=== PATIENT | male | born 1950 | race Caucasian/White ===

== ENCOUNTER 2017-05-16 03:23 | Outpatient (CLI) | payer MEDICARE, OTHER | END 2017-05-16 03:24 | disposition critical access hospital (66) | LOC: EMS 03:23 | PROVIDERS: ATTEND Surgery | DX: M25.511 Pain in right shoulder (principal) | CPT/HCPCS: A0425; A0427 ==

== ENCOUNTER 2017-05-16 03:32 | Emergency (ER) | payer MEDICARE, OTHER ==
--- NOTE | 2017-05-16 04:15 | XRAY Preliminary Report ---
Exam: XR Shoulder 2 View RT IMPRESSION: Proximal right humerus is dislocated anteriorly relative to the glenoid. [facility] SITE ID: [id number]
--- NOTE | 2017-05-16 04:18 | XRAY Report ---
EXAM: RIGHT SHOULDER RADIOGRAPHY EXAM DATE: 05/16/2017 04:09 AM. CLINICAL HISTORY: Right shoulder pain, question dislocation COMPARISON: None. TECHNIQUE: 3 views. FINDINGS: Bones: Normal. No fracture or bone lesion. Joints: Proximal right humerus is dislocated anteriorly relative to the glenoid. Soft Tissues: The visualized hemithorax is unremarkable. No soft tissue swelling. IMPRESSION: Proximal right humerus is dislocated anteriorly relative to the glenoid. [facility] Referring Provider Line: [phone] SITE ID: [id number]
--- NOTE | 2017-05-16 05:08 | XRAY Preliminary Report ---
Exam: XR Shoulder 2 View RT IMPRESSION: 1. Anatomic alignment of the right shoulder postreduction. 2. Chronic-appearing rotator cuff arthropathy. [facility] SITE ID: [id number]
--- NOTE | 2017-05-16 05:13 | XRAY Report ---
EXAM: RIGHT SHOULDER RADIOGRAPHY EXAM DATE: 05/16/2017 04:54 AM. CLINICAL HISTORY: Post reduction right shoulder dislocation. COMPARISON: Earlier same morning. TECHNIQUE: 2 views. FINDINGS: Bones: Normal. No fracture or bone lesion. Joints: Anatomic alignment post reduction. High riding right humerus, consistent with rotator cuff ar thropathy. Moderate glenohumeral degenerative changes. Soft tissues: The visualized hemithorax is unremarkable. No soft tissue swelling. IMPRESSION: 1. Anatomic alignment of the right shoulder post reduction. 2. Chronic-appearing rotator cuff arthropathy. [facility] Referring Provider Line: [phone] SITE ID: [id number]
--- NOTE | 2017-05-16 05:14 | ED Physician Documentation ---
PD HPI UPPER EXT INJURY - Stated complaint Stated Complaint: SHOULDER PX - Chief complaint Chief Complaint: Ext Problem - History obtained from History obtained from: Patient, EMS - History of Present Illness Location: Right, Shoulder Type of injury: Fall Where injury occurred: Home Timing - onset: Today Timing - duration: Minutes Timing - details: Abrupt onset, Still present Improved by: Rest, Immobilization Worsened by: Moving, Palpating Associated symptoms: No: Weakness, Numbness, Tingling, Swelling Contributing factors: No: Anticoagulated Similar symptoms before: Has not had sx before Recently seen: Not recently seen - Additonal information Additional information: 67 y/[place] he is staying in the house and staying on an air mattress He rolled off of the bed and somehow dislocated his right shoulder. Review of Systems Constitutional: denies: Fever Respiratory: denies: Cough GI: denies: Vomiting Musculoskeletal: reports: Joint pain. denies: Neck pain, Back pain Neurologic: denies: Generalized weakness, Focal weakness, Numbness PD PAST MEDICAL HISTORY - Past Medical History Past Medical History: Yes Cardiovascular: Hypertension - Past Surgical History Past Surgical History: No - Present Medications Home Medications: Ambulatory Orders Medication Instructions Recorded Confirmed Propranolol [Inderal] 60 mg PO DAILY 05/16/17 05/16/17 hydroCHLOROthiazide [Hydrodiuril] 1 tab PO DAILY 05/16/17 05/16/17 - Allergies Allergies/Adverse Reactions: Allergies Allergy/AdvReac Type Severity Reaction Status Date / Time No Known Drug Allergies Allergy Verified 05/16/17 03:37 - Social History Does the pt smoke?: No Smoking Status: Never smoker PD ED PE NORMAL - Vitals Vital signs reviewed: Yes (hypertensive) - General General: Alert and oriented X 3, Well developed/nourished, Other (patient has is right arm held up by the left arm and appears to be in pain AOB) - HEENT HEENT: Atraumatic, PERRL - Neck Neck: Supple, no meningeal sign, No bony TTP - Respiratory Respiratory: No respiratory distress - Derm Derm: Normal color, Warm and dry, No rash - Extremities Extremities: Other (There is a dislocation deformity of the right shoulder consistent with an anterior dislocation. ) Results - Vitals Vitals: Vital Signs - 24 hr 05/16/17 05/16/17 05/16/17 03:35 04:25 05:09 Temperature 36.6 C Heart Rate 55 L 53 L Respiratory 16 16 16 Rate Blood Pressure 169/93 H 143/80 H O2 Saturation 100 100 05/16/17 05/16/17 06:10 06:43 Temperature Heart Rate 53 L 53 L Respiratory 17 16 Rate Blood Pressure 130/72 O2 Saturation 99 98 Oxygen O2 Source Room air - Rads (name of study) right shoulder Radiology: Prelim report reviewed (Impression: Proximal right humerus is dislocated anteriorly relative to the glenoid.), EMP read indepedently, See rad report Postreduction right shoulder Radiology: Prelim report reviewed (Impression: 1. Anatomic alignment of the right shoulder post reduction. 2. Chronic appearing rotator cuff arthropathy.) , EMP read indepedently, See rad report Procedures - Reduction Body part reduced: Right, Shoulder Fracture or dislocation: Dislocation Anesthesia: Other (ETOH) Shoulder reduction technique: Traction - counter tract Reduction aftercare: NV intact, Xray confirms reduction, Alignment improved, Patient tolerated well PD MEDICAL DECISION MAKING - ED course Complexity details: reviewed results, re-evaluated patient, considered differential, d/w patient ED course: 67-year-old male who rolled off of the bed and dislocated his right shoulder comes to the emergency department with his shoulder dislocated. He is able to allow me to use traction on the arm which does help with his general level of pain I am only able to sustain traction and the shoulder is reduced. Departure - Departure Disposition: 01 Home, Self Care Clinical Impression: Shoulder dislocation Qualifiers: Encounter type: initial encounter Laterality: right Qualified Code(s): S43.004A - Unspecified dislocation of right shoulder joint, initial encounter Condition: Stable Instructions: ED Dislocation Shoulder Redu Follow-Up: Your, doctor [Other] Discharge Date/Time: 05/16/17 07:00
[2017-05-16 06:43] VITALS: BP 130/72
== END 2017-05-16 07:00 | disposition home or self-care (01) ==
LOC: EDUNIT# → ED 03:32
DX: S43.004A Unspecified dislocation of right shoulder joint, initial encounter (principal); W06.XXXA Fall from bed, initial encounter; Y93.84 Activity, sleeping; Y92.009 Unspecified place in unspecified non-institutional (private) residence as the place of occurrence of the external cause; I10 Essential (primary) hypertension
CPT/HCPCS: 23650; 99283; 99284

== ENCOUNTER 2021-05-22 19:49 | Outpatient (CLI) | payer MEDICARE, OTHER | END 2021-05-22 19:50 | disposition critical access hospital (66) | LOC: EMS 19:49 | DX: R10.9 Unspecified abdominal pain (principal) | CPT/HCPCS: A0425; A0427 ==

== ENCOUNTER 2021-05-22 19:56 | Inpatient (IN) | payer MEDICARE, OTHER ==
[~2021-05-22 19:56] MED LIST: LACTATED RINGERS 400 ML IV ONE
[2021-05-22 20:22] LABS: BASOPHILS # (AUTO) 0.1 10^3/uL (0.0-0.1); BASOPHILS % (AUTO) 0.5 %; EOSINOPHILS % (AUTO) 0.1 %; HCT - HEMATOCRIT 27.8 % (42.0-52.0); HGB - HEMOGLOBIN 8.5 g/dL (14.0-18.0); LYMPHOCYTES # (AUTO) 0.6 10^3/uL (1.5-3.5); LYMPHOCYTES % (AUTO) 3.8 %; MEAN CORPUSCULAR HEMOGLOBIN 27.8 pg (27.0-31.0); MEAN CORPUSCULAR HGB CONC 30.6 g/dL (32.0-36.0); MEAN CORPUSCULAR VOLUME 90.8 fL (80.0-94.0); MEAN PLATELET VOLUME 8.2 fL (7.4-11.4); MONOCYTES # (AUTO) 0.7 10^3/uL (0.0-1.0); MONOCYTES % (AUTO) 4.2 %; NEUTROPHILS # (AUTO) 14.4 10^3/uL (1.5-6.6); PLT - PLATELET COUNT 392 10^3/uL (130-450); RED BLOOD COUNT 3.06 10^6/uL (4.70-6.10); RED CELL DISTRIBUTION WIDTH 15.9 % (12.0-15.0); WHITE BLOOD COUNT 15.9 x10^3/uL (4.8-10.8)
[2021-05-22] MEDS ORDERED: ONDANSETRON 4 MG/2 ML VIAL IVP STA (20:37)
[2021-05-22] MEDS ORDERED: MORPHINE 2 MG/ML CARPUJECT IVP STA (20:37)
[2021-05-22] MEDS ORDERED: PIPERACILLIN/TAZOBACTAM 3.375 GM in SODIUM CHLORIDE 0.9% MINIBAG 100 ML IV STA (20:39)
--- NOTE | 2021-05-22 20:40 | ED Physician Documentation ---
History of Present Illness - Stated complaint Stated Complaint: ABD PX - Chief complaint Chief Complaint: Abd Pain - History obtained from History obtained from: Patient - Additonal information Additional information: 71-year-old male with a past medical history of a abdominal mass of unspecified type for which he underwent a jejunalplasty at the [facility] several months ago. He presents today with a 1 day history of abdominal pain starting in the left lower quadrant and radiating throughout the abdomen. The pain started after breakfast this morning. It is worsened throughout the day to the point where he cannot take a deep breath due to the pain. He has been sipping on grapefruit juice since this morning but has not eaten. He is passing gas and he had a normal bowel movement yesterday and none today. He is not vomiting. Denies any urinary symptoms. The patient states that he has a history of reflux symptoms but he felt as though drinking apple cider vinegar every day has actually been helpful to him and he has been drinking 2 or 3 tablespoons daily. He has a history of anemia which is followed by the [facility], baseline hgb 8 per pt report. Review of Systems Constitutional: reports: Weight Loss (prior to recent surgery but stable since then), Reviewed and negative Eyes: reports: Reviewed and negative Ears: reports: Reviewed and negative Nose: reports: Reviewed and negative Throat: reports: Reviewed and negative Cardiac: reports: Reviewed and negative Respiratory: reports: Dyspnea. denies: Cough, Hemoptysis, Wheezing GI: reports: Abdominal Pain, Abdominal Swelling. denies: Nausea, Vomiting, Constipation, Diarrhea, Hematemesis, Bloody / black stool : reports: Reviewed and negative Skin: reports: Reviewed and negative Musculoskeletal: reports: Reviewed and negative Neurologic: reports: Reviewed and negative Psychiatric: reports: Reviewed and negative Endocrine: reports: Reviewed and negative Immunocompromised: reports: Reviewed and negative PD PAST MEDICAL HISTORY - Past Medical History Past Medical History: Yes Cardiovascular: Hypertension Respiratory: None Neuro: Migraines, Tremors Endocrine/Autoimmune: None GI: None : None Psych: None Musculoskeletal: None Derm: None - Past Surgical History Past Surgical History: No General: Gastric surgery Ortho: Hip replacement - Present Medications Home Medications: Ambulatory Orders Medication Instructions Recorded Confirmed No Known Home Medications 05/22/21 05/22/21 - Allergies Allergies/Adverse Reactions: Allergies Allergy/AdvReac Type Severity Reaction Status Date / Time No Known Drug Allergies Allergy Verified 05/22/21 20:09 - Living Situation Living Situation: reports: With spouse/s.o. - Social History Does the pt smoke?: No Smoking Status: Never smoker PD ED PE NORMAL - Vitals Vital signs reviewed: Yes - General General: Alert and oriented X 3, Well developed/nourished, Other (Mild distress, shallow breathing.) - HEENT HEENT: Atraumatic, Moist mucous membranes, Pharynx benign - Neck Neck: Supple, no meningeal sign, No JVD - Cardiac Cardiac: RRR, No murmur, No gallop, No rub, Strong equal pulses - Respiratory Respiratory: Clear bilaterally, Other (Is breathing shallow secondary to abdominal pain) - Abdomen Abdomen: Normal bowel sounds, Other (Diffuse tenderness primarily in the lower abdomen to light touch. Mild distention. Active bowel tones.) - Derm Derm: Normal color, Warm and dry, No rash - Extremities Extremities: No deformity, No tenderness to palpate, Normal ROM s pain, No edema, No calf tenderness / cord - Neuro Neuro: Alert and oriented X 3, No motor deficit, No sensory deficit, Normal speech Eye Opening: Spontaneous Motor: Obeys Commands Verbal: Oriented GCS Score: 15 - Psych Psych: Normal mood, Normal affect Results - Vitals Vitals: Vital Signs - 24 hr 05/22/21 05/22/21 05/22/21 20:00 21:28 22:00 Temperature 36.9 C Heart Rate 99 83 81 Respiratory 25 H 30 H 30 H Rate Blood Pressure 155/85 H 147/76 H 140/76 H O2 Saturation 98 98 97 05/22/21 22:30 Temperature Heart Rate 81 Respiratory 25 H Rate Blood Pressure 136/77 H O2 Saturation 97 Oxygen O2 Source Room air - EKG (time done) No standard instances Rate: Rate (enter#) (81) Rhythm: NSR [place]: Normal Intervals: Normal [place] QRS: Normal Ischemia: Normal ST segments Computer interpretation: Agree with computer - Labs Labs: Laboratory Tests 05/22/21 05/22/21 05/22/21 20:18 20:18 20:18 WBC 15.9 H RBC 3.06 L Hgb 8.5 L Hct 27.8 L MCV 90.8 MCH 27.8 MCHC 30.6 L RDW 15.9 H Plt Count 392 MPV 8.2 Neut # (Auto) 14.4 H Lymph # (Auto) 0.6 L [place] # (Auto) 0.7 Eos # (Auto) 0.0 Baso # (Auto) 0.1 Absolute Nucleated RBC 0.00 Nucleated RBC % 0.0 Sodium 136 Potassium 4.3 Chloride 102 Carbon Dioxide 23 Anion Gap 11.0 BUN 14 Creatinine 0.9 Estimated GFR (MDRD) 83 L Glucose 241 H Lactic Acid Calcium 8.2 L Total Bilirubin 0.9 AST 10 ALT 16 Alkaline Phosphatase 73 Troponin I High Sens 4.4 Total Protein 6.1 L Albumin 2.3 L Globulin 3.8 Albumin/Globulin Ratio 0.6 L Lipase 18 L 05/22/21 20:57 WBC RBC Hgb Hct MCV MCH MCHC RDW Plt Count MPV Neut # (Auto) Lymph # (Auto) [place] # (Auto) Eos # (Auto) Baso # (Auto) Absolute Nucleated RBC Nucleated RBC % Sodium Potassium Chloride Carbon Dioxide Anion Gap BUN Creatinine Estimated GFR (MDRD) Glucose Lactic Acid 1.9 Calcium Total Bilirubin AST ALT Alkaline Phosphatase Troponin I High Sens Total Protein Albumin Globulin Albumin/Globulin Ratio Lipase PD MEDICAL DECISION MAKING - ED course Complexity details: reviewed results, re-evaluated patient, d/w patient, d/w forestry consultant ED course: This is a 71-year-old male who presented with abdominal pain since this morning. His physical exam was concerning for a diffusely tender and mildly distended abdomen therefore an abdominal work-up and CT abdomen pelvis was obtained as well as a sepsis work-up. His labs are significant for an elevated white blood cell count of 15.6, stable anemia with a hemoglobin of 8.5, lactate less than 2. His CT abdomen pelvis shows a perforated viscus likely secondary to gastric ulcer. He also has a large retroperitoneal mesenteric mass. I discussed these findings with the on-call surgeon Dr. Franklin who very kindly is coming in to see the patient for likely operative repair tonight. We will obtain a type and screen now as well as a Covid test for admit. I reviewed the findings and the plan of care with the patient is agreeable to proceed. Departure - Departure Disposition: ED Transfer to [facility] Clinical Impression: Perforated abdominal viscus Condition: Fair
[2021-05-22 20:42] LABS: ALBUMIN 2.3 g/dL (3.2-5.5); ALBUMIN/GLOBULIN RATIO 0.6 (1.0-2.2); BILIRUBIN,TOTAL 0.9 mg/dL (0.2-1.0); CALCIUM 8.2 mg/dL (8.5-10.3); CREATININE 0.9 mg/dL (0.6-1.2); POTASSIUM 4.3 mmol/L (3.5-5.0); TOTAL PROTEIN 6.1 g/dL (6.7-8.2)
[2021-05-22] MEDS ORDERED: IOPAMIDOL-300 100 ML VIAL ONE (20:49)
[2021-05-22] MEDS ORDERED: IOPAMIDOL-300 100 ML VIAL IVP ONE (21:29)
[2021-05-22] MEDS ORDERED: HYDROmorphone 1 MG/ML CARPUJECT IVP STA (21:40)
--- NOTE | 2021-05-22 21:56 | CT Report ---
PROCEDURE: Abdomen/Pelvis W INDICATIONS: sepsis, acute abd, prior jejunoplasty CONTRAST: IV CONTRAST: Isovue 300 ml: 100 PO CONTRAST: *NO PO CONTRAST TECHNIQUE: After the administration of intravenous contrast, 5 mm thick sections acquired from the diaphragms to the symphysis. 5 mm thick coronal and sagittal reformats were acquired. For radiation dose reducti on, the following was used: automated exposure control, adjustment of mA and/or kV according to ricardo ent size. COMPARISON: None. FINDINGS: Image quality: Excellent. ABDOMEN: Lung bases: Lung bases are clear. Heart size is normal. Small pericardial effusion. Solid organs: Liver and spleen are normal in size and enhancement. Gallbladder is unremarkable. Bi liary system is non dilated. Pancreas enhances normally. No adrenal nodules. Kidneys demonstrate n ormal size and enhancement, without hydronephrosis. Peritoneum and bowel: There is a suggestion of a possible perforated gastric ulcer. This is in a simin on of gastric mia in the antral or pyloric region. The duodenum is dilated. The third and fourth portion of duodenum and the proximal jejunum are compressed by the retroperitoneal and mesenteric mas s. Probable ileus pattern. Extensive sigmoid diverticulosis. Prominent free intraperitoneal air. Mild free pelvic fluid. Mild perihepatic fluid. Nodes and vessels: Very large retroperitoneal/mesenteric lymph node mass, measuring approximately 10. 1 x 15.9 x 12.5 cm. The mass surrounds the aorta and compresses the inferior vena cava. The main port al vein and right and left portal veins are enlarged suggesting possible portal hypertension. Miscellaneous: No ventral hernias. PELVIS: Genitourinary: Bladder wall thickness is normal. Miscellaneous: No inguinal hernias or adenopathy. Bones: No suspicious bony lesions. No vertebral body compression fractures. Total left hip arthrop lasty. Extensive lumbar degenerative change with multilevel canal stenosis. IMPRESSION: 1. Free intraperitoneal air is consistent with perforated viscus. 2. Findings suggest probable perforated gastric ulcer in the antral region or pyloric region in the g eneral vicinity of surgical mia. 3. Large retroperitoneal/mesenteric lymph node mass. 4. Compression of the distal duodenum and proximal jejunum by lymph node mass. 5. Mild ascites. 6. Extensive sigmoid diverticulosis. 7. Extensive lumbar degenerative change with multilevel canal stenosis. Above discussed with GREG LEO at the time of dictation on 05.22.21 at 21:53 hours. Reviewed by: Isreal Valentin MD on 05/22/2021 9:55 PM PDT Approved by: Isreal Valentin MD on 05/22/2021 9:55 PM PDT Station ID: [id number]
[2021-05-22] MEDS ORDERED: HYDROmorphone 1 MG/ML CARPUJECT IVP ONE (22:24)
[2021-05-22] MEDS ORDERED: FLUCONAZOLE 200 MG/100 ML 100 ML IV ONE (23:05)
[2021-05-22] MEDS ORDERED: fentaNYL 100 MCG/2 ML VIAL ONE (23:09)
[2021-05-22] MEDS ORDERED: LIDOCAINE-MPF 2% 5 ML VIAL ONE (23:10)
[2021-05-22] MEDS ORDERED: PROPOFOL 200 MG/20 ML VIAL IVP ONE (23:10)
[2021-05-22] MEDS ORDERED: ONDANSETRON 4 MG/2 ML VIAL ONE (23:10)
[2021-05-22] MEDS ORDERED: ROCURONIUM 50 MG/5 ML VIAL ONE (23:10)
[2021-05-22] MEDS ORDERED: DEXAMETHASONE 4 MG/ML VIAL ONE (23:10)
--- NOTE | 2021-05-22 23:11 | HISTORY & PHYSICAL EXAMINATION ---
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 He was living in [place] several months ago and that is where he was treated. He says the mass was biopsied 3 times and he was told that it was inconclusive the first time and the last 2 times it was benign.Because it was obstructing his duodenum, he underwent a jejunum plasty presumably to bypass that portion. He tells me that this portion of his bowel is "clamped off". Since this problem developed and since he was treated in [place], he has lost 72 pounds unintentionally.He says they told him not to worry about it being cancer because he had no cancer markers. He was instructed to stop all of his habits that were bad, primarily drinking alcohol.He says he drinks 0 alcohol since that time and even bought a nonalcohol mouthwash.He reports that his pain began this morning in the left lower quadrant. Over the day it has migrated all over his abdomen until now he is profoundly uncomfortable in all ports of his abdomen.He denies any nausea or vomiting.He reports that he has a history of pretty severe gastroesophageal reflux disease and he has been drinking 2 or 3 tables teaspoons of apple cider vinegar each day.Other than this he takes no medicines on a regular basis. PMH/PSH - Past Medical History Cardiovascular: positive: Hypertension Respiratory: positive: None Neuro: positive: Migraines, Tremors Endocrine/Autoimmune: positive: None GI: positive: None : positive: None Psych: positive: None Musculoskeletal: positive: None Derm: positive: None MRSA Hx?: No - Past Surgical History General: positive: Gastric surgery Ortho: positive: Hip replacement Social & Family Hx - Social History Does the pt smoke?: No Smoking Status: Never smoker Does the pt drink ETOH?: No Does the pt have substance abuse?: No Meds/Allgy - Home Medications Home Medications: Ambulatory Orders Medication Instructions Recorded Confirmed No Known Home Medications 05/22/21 05/22/21 - Allergies Allergies/Adverse Reactions: Allergies Allergy/AdvReac Type Severity Reaction Status Date / Time No Known Drug Allergies Allergy Verified 05/22/21 20:09 Review of Systems - Constitutional Constitutional: reports: Fatigue - Cardiovascular Cariovascular: reports: Lightheadedness. denies: Irregular heart rate, Palpitations, Chest pain - Respiratory Respiratory: denies: Cough, Sputum production, Snoring - Gastrointestinal Gastrointestinal: reports: Abdominal pain - Hematologic/Lymphatic Hematologic/Lymphatic: reports: Anemia Exam - Vital Signs Reviewed Vital Signs: Yes Vital Signs: Vital Signs x48h Temp Pulse Resp BP Pulse Ox 05/22/21 23:00 81 23 131/73 H 96 05/22/21 22:30 81 25 H 136/77 H 97 05/22/21 22:00 81 30 H 140/76 H 97 05/22/21 21:28 83 30 H 147/76 H 98 05/22/21 20:00 36.9 C 99 25 H 155/85 H 98 - Physical Exam General Appearance: positive: Moderate distress Eyes Bilateral: positive: Normal inspection, EOMI ENT: positive: ENT inspection nml, Pharynx nml, No signs of dehydration Neck: positive: Nml inspection, Thyroid nml, No JVD Respiratory: positive: Chest non-tender, No respiratory distress, Other (Breath sounds decreased due to abdominal splinting) Cardiovascular: positive: Regular rate & rhythm Skin: positive: Color nml Results - Lab Results Fish Bones: 05/22/21 20:18 05/22/21 20:18 Other Lab Results: Lab Results x24hrs 05/22/21 05/22/21 05/22/21 Range/Units 20:57 20:18 20:18 WBC (4.8-10.8) x10^3/uL RBC (4.70-6.10) 10^6/uL Hgb (14.0-18.0) g/dL Hct (42.0-52.0) % MCV (80.0-94.0) fL MCH (27.0-31.0) pg MCHC (32.0-36.0) g/dL RDW (12.0-15.0) % Plt Count (130-450) 10^3/uL MPV (7.4-11.4) fL Neut # (Auto) (1.5-6.6) 10^3/uL Lymph # (Auto) (1.5-3.5) 10^3/uL Meigs # (Auto) (0.0-1.0) 10^3/uL Eos # (Auto) (0.0-0.7) 10^3/uL Baso # (Auto) (0.0-0.1) 10^3/uL Absolute Nucleated RBC x10^3/uL Nucleated RBC % /100WBC Sodium (135-145) mmol/L Potassium (3.5-5.0) mmol/L Chloride (101-111) mmol/L Carbon Dioxide (21-32) mmol/L Anion Gap (6-13) BUN (6-20) mg/dL Creatinine (0.6-1.2) mg/dL Estimated GFR (MDRD) (>89) Glucose (70-100) mg/dL Lactic Acid 1.9 (0.5-2.2) mmol/L Calcium (8.5-10.3) mg/dL Total Bilirubin (0.2-1.0) mg/dL AST (10-42) IU/L ALT (10-60) IU/L Alkaline Phosphatase (42-121) IU/L Troponin I High Sens 4.4 (2.3-19.7) ng/L Total Protein (6.7-8.2) g/dL Albumin (3.2-5.5) g/dL Globulin (2.1-4.2) g/dL Albumin/Globulin Ratio (1.0-2.2) Lipase (22-51) U/L Blood Type Recheck O POSITIVE 05/22/21 05/22/21 Range/Units 20:18 20:18 WBC 15.9 H (4.8-10.8) x10^3/uL RBC 3.06 L (4.70-6.10) 10^6/uL Hgb 8.5 L (14.0-18.0) g/dL Hct 27.8 L (42.0-52.0) % MCV 90.8 (80.0-94.0) fL MCH 27.8 (27.0-31.0) pg MCHC 30.6 L (32.0-36.0) g/dL RDW 15.9 H (12.0-15.0) % Plt Count 392 (130-450) 10^3/uL MPV 8.2 (7.4-11.4) fL Neut # (Auto) 14.4 H (1.5-6.6) 10^3/uL Lymph # (Auto) 0.6 L (1.5-3.5) 10^3/uL Meigs # (Auto) 0.7 (0.0-1.0) 10^3/uL Eos # (Auto) 0.0 (0.0-0.7) 10^3/uL Baso # (Auto) 0.1 (0.0-0.1) 10^3/uL Absolute Nucleated RBC 0.00 x10^3/uL Nucleated RBC % 0.0 /100WBC Sodium 136 (135-145) mmol/L Potassium 4.3 (3.5-5.0) mmol/L Chloride 102 (101-111) mmol/L Carbon Dioxide 23 (21-32) mmol/L Anion Gap 11.0 (6-13) BUN 14 (6-20) mg/dL Creatinine 0.9 (0.6-1.2) mg/dL Estimated GFR (MDRD) 83 L (>89) Glucose 241 H (70-100) mg/dL Lactic Acid (0.5-2.2) mmol/L Calcium 8.2 L (8.5-10.3) mg/dL Total Bilirubin 0.9 (0.2-1.0) mg/dL AST 10 (10-42) IU/L ALT 16 (10-60) IU/L Alkaline Phosphatase 73 (42-121) IU/L Troponin I High Sens (2.3-19.7) ng/L Total Protein 6.1 L (6.7-8.2) g/dL Albumin 2.3 L (3.2-5.5) g/dL Globulin 3.8 (2.1-4.2) g/dL Albumin/Globulin Ratio 0.6 L (1.0-2.2) Lipase 18 L (22-51) U/L Blood Type Recheck - Diagnostic Imaging Results Diagnostic Imaging Results Comments: PT NAME: PATSY NOVA JR MR#: [id number] REG ER/ED AGE: 71 CI DT/TM: 05/22/21 PCP: SONIA LEIVA MD : 1950 ATT: SEX: M ORD: Saba marshall [facility] EXAM: CT/ABPEW ([id number]) PROCEDURE: Abdomen/Pelvis W INDICATIONS: sepsis, acute abd, prior jejunoplasty CONTRAST: IV CONTRAST: Isovue 300 ml: 100 PO CONTRAST: *NO PO CONTRAST TECHNIQUE: After the administration of intravenous contrast, 5 mm thick sections acquired from the diaphragms to the symphysis. 5 mm thick coronal and sagittal reformats were acquired. For radiation dose reduction, the following was used: automated exposure control, adjustment of mA and/or kV according to patient size. COMPARISON: None. FINDINGS: Image quality: Excellent. ABDOMEN: Lung bases: Lung bases are clear. Heart size is normal. Small pericardial effusion. Solid organs: Liver and spleen are normal in size and enhancement. Gallbladder is unremarkable. Biliary system is non dilated. Pancreas enhances normally. No adrenal nodules. Kidneys demonstrate normal size and enhancement, without hydronephrosis. Peritoneum and bowel: There is a suggestion of a possible perforated gastric ulcer. This is in a region of gastric mia in the antral or pyloric region. The duodenum is dilated. The third and fourth portion of duodenum and the proximal jejunum are compressed by the retroperitoneal and mesenteric mass. Probable ileus pattern. Extensive sigmoid diverticulosis. Prominent free intraperitoneal air. Mild free pelvic fluid. Mild perihepatic fluid. Nodes and vessels: Very large retroperitoneal/mesenteric lymph node mass, measuring approximately 10.1 x 15.9 x 12.5 cm. The mass surrounds the aorta and compresses the inferior vena cava. The main portal vein and right and left portal veins are enlarged suggesting possible portal hypertension. Miscellaneous: No ventral hernias. PELVIS: Genitourinary: Bladder wall thickness is normal. Miscellaneous: No inguinal hernias or adenopathy. Bones: No suspicious bony lesions. No vertebral body compression fractures. Total left hip arthroplasty. Extensive lumbar degenerative change with multilevel canal stenosis. IMPRESSION: 1. Free intraperitoneal air is consistent with perforated viscus. 2. Findings suggest probable perforated gastric ulcer in the antral region or pyloric region in the general vicinity of surgical mia. 3. Large retroperitoneal/mesenteric lymph node mass. 4. Compression of the distal duodenum and proximal jejunum by lymph node mass. 5. Mild ascites. 6. Extensive sigmoid diverticulosis. 7. Extensive lumbar degenerative change with multilevel canal stenosis. Above discussed with SABA LEO at the time of dictation on 05.22.21 at 21:53 hours. Reviewed by: Isreal Valentin MD on 05/22/2021 9:55 PM PDT Approved by: Isreal Valentin MD on 05/22/2021 9:55 PM PDT Station ID: [id number] Analyst: BOWEN Reading Radiologist: Isreal Valentin MD Releasing Radiologist: Isreal Valentin MD Released Date Time: 05/22/212154 Report 54 cc: MATHEW Mills; SONIA LEIVA MD Impression/Plan - Problem List Problem List: Perforated viscus in the setting of a pleasant gentleman with a large retroperitoneal peritoneal mass and an otherwise negative history. I have recommended exploratory laparotomy with indicated procedures which will likely include ulcer repair and Luca patch. If we are able and it appears safe, we may also try to get a biopsy of the retroperitoneal mass.He is consented for exploratory laparotomy with indicated procedures. He is expressed an understanding of the risks of the operation and a desire to have the procedure.
[2021-05-22 23:35] LABS: B. PARAPERTUSSIS- RESP PCR PAN NOT DETECTED; B. PERTUSSIS- RESP PCR PANEL NOT DETECTED; C. PNEUMONIAE- RESP PCR PANEL NOT DETECTED; CORONAVIRUS 229E-RESP PCR NOT DETECTED; CORONAVIRUS HKU1-RESP PCR NOT DETECTED; CORONAVIRUS NL63-RESP PCR NOT DETECTED; CORONAVIRUS OC43-RESP PCR NOT DETECTED; HUMAN METAPNEUMOVIRUS NOT DETECTED; INFLUENZA A- RESP PCR PANEL NOT DETECTED; INFLUENZA B - RESP PCR PANEL NOT DETECTED; M. PNEUMONIAE- RESP PCR PANEL NOT DETECTED; PARAINFLUENZA VIRUS 1 NOT DETECTED; PARAINFLUENZA VIRUS 2 NOT DETECTED; PARAINFLUENZA VIRUS 3 NOT DETECTED; PARAINFLUENZA VIRUS 4 NOT DETECTED; RHINOVIRUS/ENTEROVIRUS NOT DETECTED; RSV- RESP PCR PANEL NOT DETECTED; SARS-CoV-2 -RESP PCR PANEL NOT DETECTED
--- NOTE | 2021-05-22 23:49 | ANESTHESIA ---
Pre-Anesthesia VS, & Labs - Diagnosis abdominal pain, perforated viscous - Procedure Exploratory laparotomy Vital Signs: Temp Pulse Resp BP Pulse Ox 36.9 C 81 23 131/73 H 96 05/22/21 20:00 05/22/21 23:00 05/22/21 23:00 05/22/21 23:00 05/22/21 23:00 Height: 5 ft 7 in Weight (kg): 81.102 kg Body Mass Index: 28.0 BMI Classification: Overweight - NPO >8 hours - Lab Results Current Lab Results: Laboratory Tests 05/22/21 22:32: Blood Type O POSITIVE, Antibody Screen NEGATIVE 05/22/21 20:57: Lactic Acid 1.9 05/22/21 20:18: Blood Type Recheck O POSITIVE 05/22/21 20:18: Troponin I High Sens 4.4 05/22/21 20:18: Sodium 136, Potassium 4.3, Chloride 102, Carbon Dioxide 23, Anion Gap 11.0, BUN 14, Creatinine 0.9, Estimated GFR (MDRD) 83 L, Glucose 241 H , Calcium 8.2 L, Total Bilirubin 0.9, AST 10, ALT 16, Alkaline Phosphatase 73, Total Protein 6.1 L, Albumin 2.3 L, Globulin 3.8, Albumin/Globulin Ratio 0.6 L, Lipase 18 L 05/22/21 20:18: WBC 15.9 H, RBC 3.06 L, Hgb 8.5 L, Hct 27.8 L, MCV 90.8, MCH 27.8, MCHC 30.6 L, RDW 15.9 H, Plt Count 392, MPV 8.2, Neut # (Auto) 14.4 H, Lymph # (Auto) 0.6 L, Story # (Auto) 0.7, Eos # (Auto) 0.0, Baso # (Auto) 0.1, Absolute Nucleated RBC 0.00, Nucleated RBC % 0.0 Lab results reviewed: Yes Fish Bones: 05/22/21 20:18 05/22/21 20:18 Home Medications and Allergies Home Medications: Ambulatory Orders No Known Home Medications 05/22/21 Active Medications Fluconazole (Diflucan 200 Mg/100 Ml) 100 mls @ 100 mls/hr IV ONCE ONE Stop: 05/23/21 00:04 Last Admin: 05/22/21 23:18 Dose: 100 mls/hr Documented by: No Known Home Medications 05/22/21 Allergies/Adverse Reactions: Allergies Allergy/AdvReac Type Severity Reaction Status Date / Time No Known Drug Allergies Allergy Verified 05/22/21 20:09 Anes History & Medical History - Anesthetic History Anesthesia Complications: reports: No previous complications Family history of Anesthesia Complications: Denies Family history of Malignant Hyperthermia: Denies - Medical History Cardiovascular: reports: Hypertension Pulmonary: reports: None Gastrointestinal: reports: None, Ulcers Urinary: reports: None Neuro: reports: Migraines, Tremors Musculoskeletal: reports: None Endocrine/Autoimmune: reports: None Blood Disorders: reports: None Skin: reports: None Smoking Status: Never smoker - Surgical History General: reports: Gastric surgery Orthopedic: reports: Hip replacement Results - EKG Results EKG Comparison: Normal EKG Exam General: Alert, Oriented x3, Cooperative, No acute distress Dental: WNL Mouth Openin Fingerbreadth Neck Mobility: Normal Mallampati classification: II Plan Anesthesia Type: General, Transverse Abdominis Plane (TAP) Block Regional Block: Per Surgeon's request for Post Op pain control Consent for Procedure(s) Verified and Reviewed: Yes Code Status: Attempt Resuscitation ASA classification: 3-Severe systemic disease Is this case an emergency?: Yes
[2021-05-22] MEDS ORDERED: LIDOCAINE 1% 50 ML MDV ONE (23:51)
[2021-05-22] MEDS ORDERED: BUPIVACAINE 0.25% PF 30 ML VIAL ONE (23:52)
[2021-05-22] MEDS ORDERED: LIDOCAINE 2%-EPI 1:100000 20 ML MDV ONE (23:52)
[2021-05-23] MEDS ORDERED: BUPIVACAINE 0.25% PF 30 ML VIAL SUBQ ONE (00:04)
[2021-05-23] MEDS ORDERED: LIDOCAINE 2%-EPI 1:100000 20 ML MDV SUBQ ONE (00:04)
[2021-05-23] MEDS ORDERED: BUPIVACAINE 0.25% PF 10 ML VIAL ONE (00:26)
[2021-05-23] MEDS ORDERED: EPINEPHrine 1 MG/ML AMP ONE (00:28)
[2021-05-23] MEDS ORDERED: SUGAMMADEX 200 MG/2 ML VIAL IVP ONE (00:40)
[2021-05-23] MEDS ORDERED: PHENOL THROAT SPRAY 177 ML MM PRN (00:41)
[2021-05-23] MEDS ORDERED: HYDROmorphone 0.5 MG/0.5 ML SYRINGE IVP PRN ×2 (00:49→01:29)
[2021-05-23] MEDS ORDERED: SODIUM CHLORIDE 0.9% 1,000 ML IV SCH (01:00)
--- NOTE | 2021-05-23 01:21 | ANESTHESIA POST OP EVALUATION ---
Anesthesia Post Eval - Post Anesthesia Eval Vitals: Last Vital Signs Temp 36.7 C 05/23/21 01:02 Pulse 78 05/23/21 01:02 Resp 15 05/23/21 01:02 BP 124/58 L 05/23/21 01:02 Pulse Ox 99 05/23/21 01:02 CV Function Including HR & BP: Stable Pain Control: Satisfactory Nausea & Vomiting: Negative Mental Status: Baseline Respiratory Status: Airway Patent Hydration Status: Satisfactory Anesthesia Complications: None
[2021-05-23] MEDS ORDERED: METOCLOPRAMIDE 10 MG/2 ML VIAL IVP PRN (01:29)
[2021-05-23] MEDS ORDERED: fentaNYL 100 MCG/2 ML VIAL IVP PRN (01:29)
[2021-05-23] MEDS ORDERED: ONDANSETRON 4 MG/2 ML VIAL IVP PRN (01:29)
[2021-05-23] MEDS ORDERED: ePHEDrine 50 MG/ML VIAL IVP PRN (01:29)
[2021-05-23] MEDS ORDERED: MORPHINE 2 MG/ML CARPUJECT IVP PRN (01:29)
[2021-05-23] MEDS ORDERED: NALOXONE 0.4 MG/ML VIAL IVP PRN (01:29)
[2021-05-23] MEDS ORDERED: ATROPINE ABBOJECT 1 MG/10 ML SYRINGE IVP PRN (01:29)
--- NOTE | 2021-05-23 01:35 | XRAY Report ---
PROCEDURE: Abdomen 1 View X-Ray INDICATIONS: tube placement TECHNIQUE: 1 view of the abdomen were acquired. COMPARISON: None FINDINGS: Surgical changes and devices: Dobbhoff feeding tube is seen with the tip probably in the second porti on of the duodenum. NG tube tube also noted, with the tip seen in the distal stomach or proximal duod enum. Surgical drains are present. Bowel: No pneumoperitoneum. The bowel gas pattern is normal. Soft tissues: No masses; visualized solid organ contours appear normal in size. No suspicious abdom inal calcifications. Bones: No suspicious bony abnormalities. IMPRESSION: Enteric tube and Dobbhoff feeding tube as detailed above. Reviewed by: Eric Sargent MD on 05/23/2021 1:34 AM PDT Approved by: Eric Sargent MD on 05/23/2021 1:34 AM PDT Station ID: [id number]
[2021-05-23] MEDS ORDERED: LACTATED RINGERS 1,000 ML IV SCH (02:00)
[2021-05-23] MEDS ORDERED: SODIUM CHLORIDE 0.9% 1,000 ML IV ONE (02:04)
[2021-05-23] MEDS: SODIUM CHLORIDE FLUSH 0.9% 10 ML SYRINGE IVP SCH ×3 (02:31→17:00)
[2021-05-23] MEDS: PIPERACILLIN/TAZOBACTAM 3.375 GM in SODIUM CHLORIDE 0.9% MINIBAG 100 ML IV SCH ×3 (03:01→18:05)
[2021-05-23] MEDS ORDERED: ACETAMINOPHEN 1,000 MG/100 ML 100 ML IV SCH (06:00)
[2021-05-23 06:02] LABS: BASOPHILS % (AUTO) 0.5 %; EOSINOPHILS % (AUTO) 0.5 %; HCT - HEMATOCRIT 25.9 % (42.0-52.0); HGB - HEMOGLOBIN 7.6 g/dL (14.0-18.0); LYMPHOCYTES % (AUTO) 1.5 %; MEAN CORPUSCULAR HEMOGLOBIN 27.3 pg (27.0-31.0); MEAN CORPUSCULAR HGB CONC 29.3 g/dL (32.0-36.0); MEAN CORPUSCULAR VOLUME 93.2 fL (80.0-94.0); MEAN PLATELET VOLUME 8.8 fL (7.4-11.4); NEUTROPHILS % (AUTO) 93.8 %; PLT - PLATELET COUNT 396 10^3/uL (130-450); RED BLOOD COUNT 2.78 10^6/uL (4.70-6.10); RED CELL DISTRIBUTION WIDTH 16.1 % (12.0-15.0); WHITE BLOOD COUNT 19.9 x10^3/uL (4.8-10.8)
[2021-05-23 06:07] LABS: ABNORMAL LYMPHS % (MANUAL) 0 %; BAND NEUTROPHILS % (MANUAL) 0 %
[2021-05-23 06:15] LABS: ALBUMIN 2.1 g/dL (3.2-5.5); ALBUMIN/GLOBULIN RATIO 0.6 (1.0-2.2); BILIRUBIN,TOTAL 0.8 mg/dL (0.2-1.0); CREATININE 0.9 mg/dL (0.6-1.2); PHOSPHORUS 4.5 mg/dL (2.5-4.6); POTASSIUM 4.8 mmol/L (3.5-5.0); TOTAL PROTEIN 5.4 g/dL (6.7-8.2)
[2021-05-23] MEDS: PANTOPRAZOLE 40 MG VIAL IVP SCH (06:24)
[2021-05-23] MEDS: SODIUM CHLORIDE FLUSH 0.9% 10 ML SYRINGE IVP PRN (06:24)
[2021-05-23] MEDS ORDERED: ACETAMINOPHEN 1,000 MG/100 ML 100 ML IV ONE (06:26)
[2021-05-23 06:28] LABS: LYMPHOCYTES # (MANUAL) 0.8 10^3/uL (1.5-3.5); LYMPHOCYTES % (MANUAL) 4 %; MONOCYTES # (MANUAL) 0.4 10^3/uL (0.0-1.0); NEUTROPHILS # (MANUAL) 18.7 10^3/uL (1.5-6.6)
[2021-05-23 06:29] LABS: PLATELET ESTIMATE, MANUAL NORMAL (130-450,000) (NORMAL); PLATELET MORPHOLOGY NORMAL APPEARANCE (NORMAL); RBC MORPHOLOGY (MULTIPLE) 1+ HYPOCHROMASIA (NORMAL); WBC MORPHOLOGY (MULTIPLE) NORMAL APPEARANCE (NORMAL)
[2021-05-23 06:30] LABS: DIFFERENTIAL COMMENT MANUAL DIFFERENTIAL
--- NOTE | 2021-05-23 07:24 | PHARMACY PROGRESS NOTE ---
- Best Possible Medication History Admit Date and Time: 05/23/21 0041 Processed by: Nursing Medication History completed: Yes Patient Interview: Completed (MED REC COMPLETED BY NURSING) As the person ultimately responsible for medication therapy, providers are able to order a medication from an existing home medication list in [facility] via the "Reconcile Routine" prior to Confirmation of that medication by product support technician. Such practice is discouraged except when the physician, in their clinical judgment, deems that a medical need exists for a medication without regard to previous use.
[2021-05-23] MEDS: FLUCONAZOLE 200 MG/100 ML 100 ML IV SCH (09:20)
[2021-05-23] MEDS: ACETAMINOPHEN 1,000 MG/100 ML 100 ML IV SCH ×3 (12:20→23:59)
[2021-05-23] MEDS: HYDROmorphone 0.5 MG/0.5 ML SYRINGE IVP PRN ×3 (15:48→23:59)
[2021-05-23] MEDS: SODIUM CHLORIDE 0.9% 1,000 ML IV SCH (17:00)
--- NOTE | 2021-05-23 17:09 | PROVIDER PROGRESS NOTE ---
Subjective - General Admit Date: 05/23/21 Procedure Date: 05/22/21 Post Op Days: 1 Procedure Performed: Ex lap with repair of gastric ulcer - Review of Systems Wound/Incisions: positive: Dressing dry and intact Drain Type: serous General: positive: Fatigue HEENT: positive: No symptoms Pulmonary: positive: No symptoms Cardiovascular: positive: No symptoms Gastrointestinal: positive: Abdominal pain. negative: Nausea, Vomiting Genitourinary: positive: No symptoms Musculoskeletal: positive: No symptoms Objective - Patient Data Vital Signs: Vital Signs x48h Temp Pulse Resp BP Pulse Ox 05/23/21 12:30 37.2 C 72 24 107/61 98 Weight: Weight 05/21/21 05/22/21 05/23/21 23:59 23:59 23:59 Weight (kg) 81.102 kg 82.1 kg Intake & Output: Intake and Output Totals x24h 05/21/21 05/22/21 05/23/21 23:59 23:59 23:59 Intake Total 100 1544.000 Output Total 650 Balance 100 894.000 - Lab Results Lab Results: 05/23/21 04:13 05/23/21 04:13 Other Lab Results: Lab Results x24hrs 05/23/21 05/23/21 05/23/21 Range/Units 04:13 04:13 02:00 WBC 19.9 H (4.8-10.8) x10^3/uL RBC 2.78 L (4.70-6.10) 10^6/uL Hgb 7.6 L (14.0-18.0) g/dL Hct 25.9 L (42.0-52.0) % MCV 93.2 (80.0-94.0) fL MCH 27.3 (27.0-31.0) pg MCHC 29.3 L (32.0-36.0) g/dL RDW 16.1 H (12.0-15.0) % Plt Count 396 (130-450) 10^3/uL MPV 8.8 (7.4-11.4) fL Neut # (Auto) Not Reportable (1.5-6.6) 10^3/uL Lymph # (Auto) Not Reportable (1.5-3.5) 10^3/uL Cooke # (Auto) Not Reportable (0.0-1.0) 10^3/uL Eos # (Auto) Not Reportable (0.0-0.7) 10^3/uL Baso # (Auto) Not Reportable (0.0-0.1) 10^3/uL Absolute Nucleated RBC Not Reportable x10^3/uL Total Counted 100 Band Neuts % (Manual) 0 (0 - 10) % Abnorm Lymph % (Manual) 0 % Nucleated RBC % Not Reportable /100WBC Neutrophils # (Manual) 18.7 H (1.5-6.6) 10^3/uL Lymphocytes # (Manual) 0.8 L (1.5-3.5) 10^3/uL Monocytes # (Manual) 0.4 (0.0-1.0) 10^3/uL Eosinophils # (Manual) 0.0 (0-0.7) 10^3/uL Basophils # (Manual) 0.0 (0-0.1) 10^3/uL Differential Comment MANUAL DIFFERENTIAL WBC Morphology NORMAL APPEARANCE (NORMAL) Platelet Estimate NORMAL (130-450,000) (NORMAL) Platelet Morphology NORMAL APPEARANCE (NORMAL) RBC Morph Micro Appear 1+ HYPOCHROMASIA (NORMAL) Sodium 140 (135-145) mmol/L Potassium 4.8 (3.5-5.0) mmol/L Chloride 105 (101-111) mmol/L Carbon Dioxide 25 (21-32) mmol/L Anion Gap 10.0 (6-13) BUN 17 (6-20) mg/dL Creatinine 0.9 (0.6-1.2) mg/dL Estimated GFR (MDRD) 83 L (>89) Glucose 142 H (70-100) mg/dL Lactic Acid (0.5-2.2) mmol/L Calcium 8.0 L (8.5-10.3) mg/dL Phosphorus 4.5 (2.5-4.6) mg/dL Magnesium 2.0 (1.7-2.8) mg/dL Total Bilirubin 0.8 (0.2-1.0) mg/dL AST 10 (10-42) IU/L ALT 15 (10-60) IU/L Alkaline Phosphatase 56 (42-121) IU/L Troponin I High Sens (2.3-19.7) ng/L Total Protein 5.4 L (6.7-8.2) g/dL Albumin 2.1 L (3.2-5.5) g/dL Globulin 3.3 (2.1-4.2) g/dL Albumin/Globulin Ratio 0.6 L (1.0-2.2) Lipase (22-51) U/L Nasal Adenovirus (PCR) Nasal B. parapertussis DNA (PCR) Nasal Coronavir 229E PCR Nasal Coronavir HKU1 PCR Nasal Coronavir NL63 PCR Nasal Coronavir OC43 PCR Nasal Enterovir/Rhinovir PCR Nasal Influenza B PCR Nasal Influenza A PCR Nasal Parainfluen 1 PCR Nasal Parainfluen 2 PCR Nasal Parainfluen 3 PCR Nasal Parainfluen 4 PCR Nasal RSV (PCR) Nasal Screen MRSA (PCR) NEGATIVE (NEGATIVE) Nasal B.pertussis DNA PCR Nasal C.pneumoniae (PCR) Jimbo Human Metapneumo PCR Nasal M.pneumoniae (PCR) Nasal SARS-CoV-2 (PCR) Blood Type Blood Type Recheck Antibody Screen 05/22/21 05/22/21 05/22/21 Range/Units 22:32 22:30 20:57 WBC (4.8-10.8) x10^3/uL RBC (4.70-6.10) 10^6/uL Hgb (14.0-18.0) g/dL Hct (42.0-52.0) % MCV (80.0-94.0) fL MCH (27.0-31.0) pg MCHC (32.0-36.0) g/dL RDW (12.0-15.0) % Plt Count (130-450) 10^3/uL MPV (7.4-11.4) fL Neut # (Auto) (1.5-6.6) 10^3/uL Lymph # (Auto) (1.5-3.5) 10^3/uL Cooke # (Auto) (0.0-1.0) 10^3/uL Eos # (Auto) (0.0-0.7) 10^3/uL Baso # (Auto) (0.0-0.1) 10^3/uL Absolute Nucleated RBC x10^3/uL Total Counted Band Neuts % (Manual) (0 - 10) % Abnorm Lymph % (Manual) % Nucleated RBC % /100WBC Neutrophils # (Manual) (1.5-6.6) 10^3/uL Lymphocytes # (Manual) (1.5-3.5) 10^3/uL Monocytes # (Manual) (0.0-1.0) 10^3/uL Eosinophils # (Manual) (0-0.7) 10^3/uL Basophils # (Manual) (0-0.1) 10^3/uL Differential Comment WBC Morphology (NORMAL) Platelet Estimate (NORMAL) Platelet Morphology (NORMAL) RBC Morph Micro Appear (NORMAL) Sodium (135-145) mmol/L Potassium (3.5-5.0) mmol/L Chloride (101-111) mmol/L Carbon Dioxide (21-32) mmol/L Anion Gap (6-13) BUN (6-20) mg/dL Creatinine (0.6-1.2) mg/dL Estimated GFR (MDRD) (>89) Glucose (70-100) mg/dL Lactic Acid 1.9 (0.5-2.2) mmol/L Calcium (8.5-10.3) mg/dL Phosphorus (2.5-4.6) mg/dL Magnesium (1.7-2.8) mg/dL Total Bilirubin (0.2-1.0) mg/dL AST (10-42) IU/L ALT (10-60) IU/L Alkaline Phosphatase (42-121) IU/L Troponin I High Sens (2.3-19.7) ng/L Total Protein (6.7-8.2) g/dL Albumin (3.2-5.5) g/dL Globulin (2.1-4.2) g/dL Albumin/Globulin Ratio (1.0-2.2) Lipase (22-51) U/L Nasal Adenovirus (PCR) NOT DETECTED Nasal B. parapertussis DNA (PCR) NOT DETECTED Nasal Coronavir 229E PCR NOT DETECTED Nasal Coronavir HKU1 PCR NOT DETECTED Nasal Coronavir NL63 PCR NOT DETECTED Nasal Coronavir OC43 PCR NOT DETECTED Nasal Enterovir/Rhinovir PCR NOT DETECTED Nasal Influenza B PCR NOT DETECTED Nasal Influenza A PCR NOT DETECTED Nasal Parainfluen 1 PCR NOT DETECTED Nasal Parainfluen 2 PCR NOT DETECTED Nasal Parainfluen 3 PCR NOT DETECTED Nasal Parainfluen 4 PCR NOT DETECTED Nasal RSV (PCR) NOT DETECTED Nasal Screen MRSA (PCR) (NEGATIVE) Nasal B.pertussis DNA PCR NOT DETECTED Nasal C.pneumoniae (PCR) NOT DETECTED Jimbo Human Metapneumo PCR NOT DETECTED Nasal M.pneumoniae (PCR) NOT DETECTED Nasal SARS-CoV-2 (PCR) NOT DETECTED Blood Type O POSITIVE Blood Type Recheck Antibody Screen NEGATIVE 05/22/21 05/22/21 05/22/21 Range/Units 20:18 20:18 20:18 WBC (4.8-10.8) x10^3/uL RBC (4.70-6.10) 10^6/uL Hgb (14.0-18.0) g/dL Hct (42.0-52.0) % MCV (80.0-94.0) fL MCH (27.0-31.0) pg MCHC (32.0-36.0) g/dL RDW (12.0-15.0) % Plt Count (130-450) 10^3/uL MPV (7.4-11.4) fL Neut # (Auto) (1.5-6.6) 10^3/uL Lymph # (Auto) (1.5-3.5) 10^3/uL Cooke # (Auto) (0.0-1.0) 10^3/uL Eos # (Auto) (0.0-0.7) 10^3/uL Baso # (Auto) (0.0-0.1) 10^3/uL Absolute Nucleated RBC x10^3/uL Total Counted Band Neuts % (Manual) (0 - 10) % Abnorm Lymph % (Manual) % Nucleated RBC % /100WBC Neutrophils # (Manual) (1.5-6.6) 10^3/uL Lymphocytes # (Manual) (1.5-3.5) 10^3/uL Monocytes # (Manual) (0.0-1.0) 10^3/uL Eosinophils # (Manual) (0-0.7) 10^3/uL Basophils # (Manual) (0-0.1) 10^3/uL Differential Comment WBC Morphology (NORMAL) Platelet Estimate (NORMAL) Platelet Morphology (NORMAL) RBC Morph Micro Appear (NORMAL) Sodium 136 (135-145) mmol/L Potassium 4.3 (3.5-5.0) mmol/L Chloride 102 (101-111) mmol/L Carbon Dioxide 23 (21-32) mmol/L Anion Gap 11.0 (6-13) BUN 14 (6-20) mg/dL Creatinine 0.9 (0.6-1.2) mg/dL Estimated GFR (MDRD) 83 L (>89) Glucose 241 H (70-100) mg/dL Lactic Acid (0.5-2.2) mmol/L Calcium 8.2 L (8.5-10.3) mg/dL Phosphorus (2.5-4.6) mg/dL Magnesium (1.7-2.8) mg/dL Total Bilirubin 0.9 (0.2-1.0) mg/dL AST 10 (10-42) IU/L ALT 16 (10-60) IU/L Alkaline Phosphatase 73 (42-121) IU/L Troponin I High Sens 4.4 (2.3-19.7) ng/L Total Protein 6.1 L (6.7-8.2) g/dL Albumin 2.3 L (3.2-5.5) g/dL Globulin 3.8 (2.1-4.2) g/dL Albumin/Globulin Ratio 0.6 L (1.0-2.2) Lipase 18 L (22-51) U/L Nasal Adenovirus (PCR) Nasal B. parapertussis DNA (PCR) Nasal Coronavir 229E PCR Nasal Coronavir HKU1 PCR Nasal Coronavir NL63 PCR Nasal Coronavir OC43 PCR Nasal Enterovir/Rhinovir PCR Nasal Influenza B PCR Nasal Influenza A PCR Nasal Parainfluen 1 PCR Nasal Parainfluen 2 PCR Nasal Parainfluen 3 PCR Nasal Parainfluen 4 PCR Nasal RSV (PCR) Nasal Screen MRSA (PCR) (NEGATIVE) Nasal B.pertussis DNA PCR Nasal C.pneumoniae (PCR) Jimbo Human Metapneumo PCR Nasal M.pneumoniae (PCR) Nasal SARS-CoV-2 (PCR) Blood Type Blood Type Recheck O POSITIVE Antibody Screen 05/22/21 Range/Units 20:18 WBC 15.9 H (4.8-10.8) x10^3/uL RBC 3.06 L (4.70-6.10) 10^6/uL Hgb 8.5 L (14.0-18.0) g/dL Hct 27.8 L (42.0-52.0) % MCV 90.8 (80.0-94.0) fL MCH 27.8 (27.0-31.0) pg MCHC 30.6 L (32.0-36.0) g/dL RDW 15.9 H (12.0-15.0) % Plt Count 392 (130-450) 10^3/uL MPV 8.2 (7.4-11.4) fL Neut # (Auto) 14.4 H (1.5-6.6) 10^3/uL Lymph # (Auto) 0.6 L (1.5-3.5) 10^3/uL Cooke # (Auto) 0.7 (0.0-1.0) 10^3/uL Eos # (Auto) 0.0 (0.0-0.7) 10^3/uL Baso # (Auto) 0.1 (0.0-0.1) 10^3/uL Absolute Nucleated RBC 0.00 x10^3/uL Total Counted Band Neuts % (Manual) (0 - 10) % Abnorm Lymph % (Manual) % Nucleated RBC % 0.0 /100WBC Neutrophils # (Manual) (1.5-6.6) 10^3/uL Lymphocytes # (Manual) (1.5-3.5) 10^3/uL Monocytes # (Manual) (0.0-1.0) 10^3/uL Eosinophils # (Manual) (0-0.7) 10^3/uL Basophils # (Manual) (0-0.1) 10^3/uL Differential Comment WBC Morphology (NORMAL) Platelet Estimate (NORMAL) Platelet Morphology (NORMAL) RBC Morph Micro Appear (NORMAL) Sodium (135-145) mmol/L Potassium (3.5-5.0) mmol/L Chloride (101-111) mmol/L Carbon Dioxide (21-32) mmol/L Anion Gap (6-13) BUN (6-20) mg/dL Creatinine (0.6-1.2) mg/dL Estimated GFR (MDRD) (>89) Glucose (70-100) mg/dL Lactic Acid (0.5-2.2) mmol/L Calcium (8.5-10.3) mg/dL Phosphorus (2.5-4.6) mg/dL Magnesium (1.7-2.8) mg/dL Total Bilirubin (0.2-1.0) mg/dL AST (10-42) IU/L ALT (10-60) IU/L Alkaline Phosphatase (42-121) IU/L Troponin I High Sens (2.3-19.7) ng/L Total Protein (6.7-8.2) g/dL Albumin (3.2-5.5) g/dL Globulin (2.1-4.2) g/dL Albumin/Globulin Ratio (1.0-2.2) Lipase (22-51) U/L Nasal Adenovirus (PCR) Nasal B. parapertussis DNA (PCR) Nasal Coronavir 229E PCR Nasal Coronavir HKU1 PCR Nasal Coronavir NL63 PCR Nasal Coronavir OC43 PCR Nasal Enterovir/Rhinovir PCR Nasal Influenza B PCR Nasal Influenza A PCR Nasal Parainfluen 1 PCR Nasal Parainfluen 2 PCR Nasal Parainfluen 3 PCR Nasal Parainfluen 4 PCR Nasal RSV (PCR) Nasal Screen MRSA (PCR) (NEGATIVE) Nasal B.pertussis DNA PCR Nasal C.pneumoniae (PCR) Jimbo Human Metapneumo PCR Nasal M.pneumoniae (PCR) Nasal SARS-CoV-2 (PCR) Blood Type Blood Type Recheck Antibody Screen - Current Medications Current Medications: Current Medications Generic Name Dose Route Start Last Admin Trade Name Freq PRN Reason Stop Dose Admin Hydromorphone HCl 0.5 mg 05/23/21 00:41 05/23/21 15:48 Hydromorphone 0.5 Mg/0.5 Ml Syringe IVP 0.5 mg Q2H PRN Administration PAIN Piperacillin Sod/Tazobactam 100 mls @ 25 mls/hr 05/23/21 02:30 05/23/21 14:50 Sod 3.375 gm/ Sodium Chloride IV Infused Q8H MICHELLE Infusion Fluconazole 100 mls @ 100 mls/hr 05/23/21 09:00 05/23/21 10:20 Diflucan 200 Mg/100 Ml IV Infused DAILY MICHELLE Infusion Acetaminophen 100 mls @ 400 mls/hr 05/23/21 12:20 05/23/21 17:05 Ofirmev IV 400 mls/hr Q6HR MICHELLE Administration Sodium Chloride 1,000 mls @ 100 mls/hr 05/23/21 17:00 05/23/21 17:00 Normal Saline 0.9% IV 100 mls/hr .Q10H MICHELLE Administration Pantoprazole Sodium 40 mg 05/23/21 07:00 05/23/21 06:24 Pantoprazole 40 Mg Vial IVP 40 mg QDAC MICHELLE Administration Sodium Chloride 10 ml 05/23/21 01:00 05/23/21 17:00 Sodium Chloride Flush 0.9% 10 Ml Syringe IVP 10 ml 0100,0900,1700 MICHELLE Administration Sodium Chloride 10 ml 05/23/21 00:41 05/23/21 06:24 Sodium Chloride Flush 0.9% 10 Ml Syringe IVP 10 ml PRN PRN Administration NEEDED PER PROVIDER ORDERS - Physical Exam Wound/Incisions: positive: Dressing dry and intact General Appearance: positive: No acute distress, Lethargic Eyes Bilateral: positive: Normal inspection Neck: positive: Nml inspection Respiratory: positive: No respiratory distress Cardiovascular: positive: Regular rate & rhythm Abdomen: positive: Tenderness Skin: positive: Color nml Extremities: positive: Non-tender Neurologic/Psychiatric: positive: Oriented x3 ABX Reporting Has patient been on IV antibiotics over the past 48 hours?: Yes Impression/Plan - Problem List Problem List: Perforted gastric ulcer with peritonitis 1. Pain is reasonably well controlled with block and current regimen 2. Needs to stand at the bedside and sit in the chair for at least 30 min 3. Start trophic tube feed 4. Comtinue antibiotic and await culture 5. White out in the AM
[2021-05-24] MEDS: PIPERACILLIN/TAZOBACTAM 3.375 GM in SODIUM CHLORIDE 0.9% MINIBAG 100 ML IV SCH ×3 (02:12→17:53)
[2021-05-24] MEDS: SODIUM CHLORIDE 0.9% 1,000 ML IV SCH ×3 (05:10→18:39)
[2021-05-24] MEDS: HYDROmorphone 0.5 MG/0.5 ML SYRINGE IVP PRN ×5 (05:10→21:59)
[2021-05-24 05:28] LABS: BASOPHILS # (AUTO) 0.1 10^3/uL (0.0-0.1); BASOPHILS % (AUTO) 0.3 %; EOSINOPHILS # (AUTO) 0.1 10^3/uL (0.0-0.7); EOSINOPHILS % (AUTO) 0.3 %; HCT - HEMATOCRIT 24.1 % (42.0-52.0); LYMPHOCYTES # (AUTO) 0.7 10^3/uL (1.5-3.5); LYMPHOCYTES % (AUTO) 3.7 %; MEAN CORPUSCULAR HEMOGLOBIN 26.8 pg (27.0-31.0); MEAN CORPUSCULAR HGB CONC 28.6 g/dL (32.0-36.0); MEAN CORPUSCULAR VOLUME 93.8 fL (80.0-94.0); MEAN PLATELET VOLUME 8.8 fL (7.4-11.4); MONOCYTES # (AUTO) 0.5 10^3/uL (0.0-1.0); MONOCYTES % (AUTO) 2.5 %; NEUTROPHILS # (AUTO) 17.2 10^3/uL (1.5-6.6); NEUTROPHILS % (AUTO) 92.4 %; PLT - PLATELET COUNT 363 10^3/uL (130-450); RED BLOOD COUNT 2.57 10^6/uL (4.70-6.10); WHITE BLOOD COUNT 18.5 x10^3/uL (4.8-10.8)
[2021-05-24 05:40] LABS: HGB - HEMOGLOBIN 6.9 g/dL (14.0-18.0)
[2021-05-24 05:42] LABS: ALBUMIN 1.8 g/dL (3.2-5.5); ALBUMIN/GLOBULIN RATIO 0.6 (1.0-2.2); BILIRUBIN,TOTAL 0.5 mg/dL (0.2-1.0); CALCIUM 7.7 mg/dL (8.5-10.3); CREATININE 1.1 mg/dL (0.6-1.2); POTASSIUM 4.6 mmol/L (3.5-5.0)
[2021-05-24] MEDS: PANTOPRAZOLE 40 MG VIAL IVP SCH (06:25)
[2021-05-24] MEDS: ACETAMINOPHEN 1,000 MG/100 ML 100 ML IV SCH ×3 (06:25→17:42)
[2021-05-24] MEDS ORDERED: diphenhydrAMINE INJ 50 MG/ML VIAL IVP ONE (06:37)
--- NOTE | 2021-05-24 06:48 | OPERATIVE REPORT ---
Operative Report - General Admit Date: 05/23/21 Procedure Date: 05/22/21
[2021-05-24] MEDS: SODIUM CHLORIDE FLUSH 0.9% 10 ML SYRINGE IVP SCH ×3 (08:49→17:45)
[2021-05-24] MEDS: ENOXAPARIN 40 MG/0.4 ML SYRINGE SUBQ SCH (08:51)
[2021-05-24] MEDS: FLUCONAZOLE 200 MG/100 ML 100 ML IV SCH (09:35)
--- NOTE | 2021-05-24 12:50 | OPERATIVE REPORT ---
Operative Report - General Admit Date: 05/23/21 Procedure Date: 05/23/21 Planned Procedure: Exploratory laparotomy with indicated procedures. Pre-Op Diagnosis: Perforated viscus Procedure Performed: Exploratory laparotomy with direct repair of gastric ulcer, Luca patch, evacuation of intra-abdominal abscess, drain placement, and nasogastric feeding tube placement. Post Op Diagnosis: Perforated gastric ulcer with generalized peritonitis. - Procedure Note Primary Surgeon: Rigoberto Anesthesia Provider: LALA Soto Anesthesia Technique: General ET tube Pathology: 1. Aerobic peritoneal fluid culture 2. Anaerobic peritoneal fluid culture 3. Retroperitoneal mass Estimated Blood Loss (mL): 50 Drain/Tube Type: Arturo drain Indications: 19 Danish Arturo drain on the surface of the Luca patch in the region of perforation Findings: 1 cm anterior gastric wall perforation with sandi peritonitis Complications: None apparent - Other Other Information/Narrative: After obtaining informed consent, the patient is brought to the operating room and placed in the supine position on the operating table. Following successful induction of general anesthesia, appropriate padding of all bony prominences, and placement of appropriate monitors, the abdomen is prepped and draped in the standard surgical fashion. A timeout was held per scope protocol. All elements of the surgical safety checklist were followed before, during, and after the procedure. Following infiltration with local anesthetic to create a field block, an upper midline incision was created and carried through the skin and subcutaneous tissue to reveal the peritoneum. The peritoneum was opened sharply and the abdomen entered directly. We immediately encountered purulent peritoneal fluid. Careful evaluation began in the region of the stomach where the abnormality had appeared on CT. The patient's anatomy had been also altered by a recent operation. 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 We immediately identified a 1 cm perforation of the anterior wall of the stomach proximal to the gastro J anastamosis. Large abscess extending from this region into the lesser sac with contamination of the peritoneal fluid even into the pelvis. The ulcer cavity itself was biopsied. I then repaired it directly with 2-0 silk suture in an interrupted fashion. The abscess cavity was washed out carefully with multiple liters of warm saline solution until the entire peritoneal cavity ran clear fluid.I then selected a piece of omentum from the remaining stomach and was able to move it toward the Luca patch by dividing one edge. This was secured into place over the direct repair. An NG tube was passed into the stomach and a feeding tube passed beyond the repair into the jejunum both from the nasal origin. A very large retroperitoneal mass was appreciated more prominent on the left side of the abdomen. As this was very firm and very easy to visualize, I elected to obtain a small biopsy of this as well. This was done sharply with a 15 blade scalpel. The retroperitoneum was closed with interrupted Vicryl suture.The wound was then checked for hemostasis. The abdomen was irrigated once more and aspirated free of all fluid and p articulate matter.An umbilical hernia was noted and the sac carefully dissected from the fascia. This was included in the closure for complete repair of the hernia. The fascia was closed with looped #1 PDS suture and clips were applied in the skin. The skin was packed in between these clips with iodine soaked gauze.All sponge, needle, and instrument counts were correct at the conclusion of the case. The patient was allowed to wake from anesthesia without significant difficulty and taken to the critical care unit in stable but guarded condition.
[2021-05-24 12:52] LABS: FOLATE 12.13 ng/mL (5.90 - >24.8)
--- NOTE | 2021-05-24 13:03 | PROVIDER PROGRESS NOTE ---
Subjective - General Admit Date: 05/23/21 Procedure Date: 05/23/21 Post Op Days: 1 Procedure Performed: Ex lap with repair of gastric ulcer - Review of Systems Wound/Incisions: positive: Dressing dry and intact Drain Type: serous General: positive: Fatigue HEENT: positive: No symptoms Pulmonary: positive: No symptoms Cardiovascular: positive: No symptoms Gastrointestinal: positive: Abdominal pain. negative: Nausea, Vomiting Genitourinary: positive: No symptoms Musculoskeletal: positive: No symptoms - Other Other Information/Narrative: Hemoglobin is down below 7 this morning. Very concerning. The patient says his pain is well controlled and he is not asked for any pain medication. Tube feeds were started at atrophic level last evening. Over the evening his drainage at the site of the ulcer repair has become milky or in color.His pain has not increased. He remains afebrile.White catheter was removed early this morning.At the time of my examination, he is sitting in a chair at the bedside. Objective - Patient Data Reviewed Vital Signs: Yes Vital Signs: Vital Signs x48h Temp Pulse Resp BP Pulse Ox 05/24/21 12:50 37.1 C 70 20 121/73 98 05/24/21 10:30 68 21 117/65 05/24/21 07:38 37.1 C 73 18 124/72 96 05/24/21 05:08 36.6 C 69 19 116/66 96 Weight: Weight 05/22/21 05/23/21 05/24/21 23:59 23:59 23:59 Weight (kg) 81.102 kg 82.1 kg Intake & Output: Intake and Output Totals x24h 05/22/21 05/23/21 05/24/21 23:59 23:59 23:59 Intake Total 100 1852.333 897.667 Output Total 1989 1395 Balance 100 -137.667 -497.333 - Lab Results Lab Results: 05/24/21 05:02 05/24/21 05:02 Other Lab Results: Lab Results x24hrs 05/24/21 05/24/21 05/24/21 Range/Units 05:02 05:02 05:02 WBC 18.5 H (4.8-10.8) x10^3/uL RBC 2.57 L (4.70-6.10) 10^6/uL Hgb 6.9 L* (14.0-18.0) g/dL Hct 24.1 L (42.0-52.0) % MCV 93.8 (80.0-94.0) fL MCH 26.8 L (27.0-31.0) pg MCHC 28.6 L (32.0-36.0) g/dL RDW 16.0 H (12.0-15.0) % Plt Count 363 (130-450) 10^3/uL MPV 8.8 (7.4-11.4) fL Neut # (Auto) 17.2 H (1.5-6.6) 10^3/uL Lymph # (Auto) 0.7 L (1.5-3.5) 10^3/uL [place] # (Auto) 0.5 (0.0-1.0) 10^3/uL Eos # (Auto) 0.1 (0.0-0.7) 10^3/uL Baso # (Auto) 0.1 (0.0-0.1) 10^3/uL Absolute Nucleated RBC 0.00 x10^3/uL Nucleated RBC % 0.0 /100WBC Sodium 138 (135-145) mmol/L Potassium 4.6 (3.5-5.0) mmol/L Chloride 104 (101-111) mmol/L Carbon Dioxide 24 (21-32) mmol/L Anion Gap 10.0 (6-13) BUN 27 H (6-20) mg/dL Creatinine 1.1 (0.6-1.2) mg/dL Estimated GFR (MDRD) 66 L (>89) Glucose 112 H (70-100) mg/dL Calcium 7.7 L (8.5-10.3) mg/dL Ferritin 288.0 (23.9-336.2) ng/mL Total Bilirubin 0.5 (0.2-1.0) mg/dL AST 11 (10-42) IU/L ALT 12 (10-60) IU/L Alkaline Phosphatase 60 (42-121) IU/L Total Protein 5.0 L (6.7-8.2) g/dL Albumin 1.8 L (3.2-5.5) g/dL Globulin 3.2 (2.1-4.2) g/dL Albumin/Globulin Ratio 0.6 L (1.0-2.2) Vitamin B12 720 (180-914) pg/mL Folate 12.13 (5.90 - >24.8) ng/mL Nasal Screen MRSA (PCR) (NEGATIVE) Blood Type Antibody Screen Crossmatch IS Only 05/23/21 05/22/21 Range/Units 02:00 22:32 WBC (4.8-10.8) x10^3/uL RBC (4.70-6.10) 10^6/uL Hgb (14.0-18.0) g/dL Hct (42.0-52.0) % MCV (80.0-94.0) fL MCH (27.0-31.0) pg MCHC (32.0-36.0) g/dL RDW (12.0-15.0) % Plt Count (130-450) 10^3/uL MPV (7.4-11.4) fL Neut # (Auto) (1.5-6.6) 10^3/uL Lymph # (Auto) (1.5-3.5) 10^3/uL [place] # (Auto) (0.0-1.0) 10^3/uL Eos # (Auto) (0.0-0.7) 10^3/uL Baso # (Auto) (0.0-0.1) 10^3/uL Absolute Nucleated RBC x10^3/uL Nucleated RBC % /100WBC Sodium (135-145) mmol/L Potassium (3.5-5.0) mmol/L Chloride (101-111) mmol/L Carbon Dioxide (21-32) mmol/L Anion Gap (6-13) BUN (6-20) mg/dL Creatinine (0.6-1.2) mg/dL Estimated GFR (MDRD) (>89) Glucose (70-100) mg/dL Calcium (8.5-10.3) mg/dL Ferritin (23.9-336.2) ng/mL Total Bilirubin (0.2-1.0) mg/dL AST (10-42) IU/L ALT (10-60) IU/L Alkaline Phosphatase (42-121) IU/L Total Protein (6.7-8.2) g/dL Albumin (3.2-5.5) g/dL Globulin (2.1-4.2) g/dL Albumin/Globulin Ratio (1.0-2.2) Vitamin B12 (180-914) pg/mL Folate (5.90 - >24.8) ng/mL Nasal Screen MRSA (PCR) NEGATIVE (NEGATIVE) Blood Type O POSITIVE Antibody Screen NEGATIVE Crossmatch IS Only See Detail - Current Medications Current Medications: Current Medications Generic Name Dose Route Start Last Admin Trade Name Freq PRN Reason Stop Dose Admin Enoxaparin Sodium 40 mg 05/24/21 09:00 05/24/21 08:51 Enoxaparin 40 Mg/0.4 Ml Syringe SUBQ 40 mg DAILY MICHELLE Administration Hydromorphone HCl 0.5 mg 05/23/21 00:41 05/24/21 08:36 Hydromorphone 0.5 Mg/0.5 Ml Syringe IVP 0.5 mg Q2H PRN Administration PAIN Piperacillin Sod/Tazobactam 100 mls @ 25 mls/hr 05/23/21 02:30 05/24/21 11:03 Sod 3.375 gm/ Sodium Chloride IV 25 mls/hr Q8H MICHELLE Administration Fluconazole 100 mls @ 100 mls/hr 05/23/21 09:00 05/24/21 10:35 Diflucan 200 Mg/100 Ml IV Infused DAILY MICHELLE Infusion Acetaminophen 100 mls @ 400 mls/hr 05/23/21 12:20 05/24/21 12:47 Ofirmev IV 400 mls/hr Q6HR MICHELLE Administration Sodium Chloride 1,000 mls @ 100 mls/hr 05/23/21 17:00 05/24/21 10:35 Normal Saline 0.9% IV 100 mls/hr .Q10H MICHELLE Infusion Pantoprazole Sodium 40 mg 05/23/21 07:00 05/24/21 06:25 Pantoprazole 40 Mg Vial IVP 40 mg QDAC MICHELLE Administration Sodium Chloride 10 ml 05/23/21 01:00 05/24/21 08:49 Sodium Chloride Flush 0.9% 10 Ml Syringe IVP 10 ml 0100,0900,1700 MICHELLE Administration Sodium Chloride 10 ml 05/23/21 00:41 05/23/21 06:24 Sodium Chloride Flush 0.9% 10 Ml Syringe IVP 10 ml PRN PRN Administration NEEDED PER PROVIDER ORDERS - Physical Exam Wound/Incisions: positive: Dressing dry and intact General Appearance: positive: No acute distress, Alert Eyes Bilateral: positive: Normal inspection, PERRL Respiratory: positive: No respiratory distress, Breath sounds nml Cardiovascular: positive: Regular rate & rhythm Abdomen: positive: Tenderness Back: negative: CVA tenderness (R), CVA tenderness (L) Extremities: positive: Non-tender Neurologic/Psychiatric: positive: Oriented x3 ABX Reporting Has patient been on IV antibiotics over the past 48 hours?: Yes Impression/Plan - Problem List Problem List: Perforated anterior gastric ulcer in the setting of a 71-year-old gentleman with a large retroperitoneal mass and recent history of [place] I with a 72 pound weight loss in the last 5 months. This morning his hemoglobin is quite low. I ordered transfusion and the patient initially refused because we were not able to guarantee that patient's who donated blood had not received a Covid vaccine. After an extensive discussion this morning he is agreed to transfusion. Additionally, I am concerned that he is leaking at his gastric anastomosis because of the change in character of the drainage once the tube feeds were started. This could also represent chylous fluid but we will have to stop the tube feeding for now. The Dobb[place] has been removed. I have requested PICC line placement and we will start TPN tonight. Are excellent dietetics and nutrition service has been consulted for help.Cuauhtemoc is a bridgette man and he is in a very precarious position. He is nutritionally depleted after months of in adequate nutrition and weight loss and he is chronically anemic from an unknown cause. We will await biopsy results on the retroperitoneal mass and start nutritional support immediately. He is aware that his condition is quite guarded. I have offered him transfer to a higher level of care and at least for now he has declined my offer.
[2021-05-24 13:06] LABS: % IRON SATURATION 9 % (20-50); IRON 9 ug/dL (45-182); TOTAL IRON BINDING CAPACITY 98 ug/dL (250-450); TRANSFERRIN 70 mg/dL (180-329)
[2021-05-24] MEDS: SODIUM CHLORIDE FLUSH 0.9% 10 ML SYRINGE IVP PRN ×3 (14:52→21:59)
--- NOTE | 2021-05-24 17:46 | XRAY Report ---
PROCEDURE: Chest for Line Placement INDICATIONS: PICC LINE PLACEMENT TECHNIQUE: One view of the chest was acquired. COMPARISON: None FINDINGS: Surgical changes and devices: Right upper extremity PICC line tip in the upper SVC. Nasogastric tube in the stomach. Lungs and pleura: Left basilar atelectasis and or infiltrate and associated with elevated left hemidi aphragm. Left costophrenic angle not included on the exam. Mediastinum: Mediastinal contours appear normal. Heart size is normal. Bones and chest wall: No suspicious bony lesions. Overlying soft tissues appear unremarkable. IMPRESSION: Right retrograde PICC line tip in the SVC without pneumothorax Nasogastric tube in the stomach Elevated left hemidiaphragm with atelectasis and or infiltrate. Reviewed by: Jose Teran MD on 05/24/2021 4:45 PM AKEVER Approved by: Jose Teran MD on 05/24/2021 4:45 PM AKDT Station ID: [id number]
--- NOTE | 2021-05-24 17:52 | ANESTHESIA PROCEDURE NOTE ---
Anesth Central Line Template - Central Line Central Line Preparation: Consent Obtained Central line location: Right Basilic Central line type: PICC Double Lumen Central line catheter tip site resides: Superior vena cava (SVC) Central line aftercare: Secured, Placement confirmed, No complications, Bundle checklist complete, Pt tolerated well
[2021-05-24] MEDS: FAT EMULSION 20% 250 ML IV SCH (18:17)
[2021-05-24] MEDS: TPN (CLINIMIX E 5/15) 2,000 ML with MULTIVITAMIN 10 ML, TRACE ELEMENTS 1 ML IV SCH ×3 (18:39)
[2021-05-25] MEDS: ACETAMINOPHEN 1,000 MG/100 ML 100 ML IV SCH ×4 (00:06→17:55)
[2021-05-25] MEDS: SODIUM CHLORIDE FLUSH 0.9% 10 ML SYRINGE IVP SCH ×5 (00:07→22:12)
[2021-05-25] MEDS: HYDROmorphone 0.5 MG/0.5 ML SYRINGE IVP PRN ×9 (00:07→22:12)
[2021-05-25] MEDS: PIPERACILLIN/TAZOBACTAM 3.375 GM in SODIUM CHLORIDE 0.9% MINIBAG 100 ML IV SCH ×3 (02:05→18:49)
[2021-05-25] MEDS: SODIUM CHLORIDE FLUSH 0.9% 10 ML SYRINGE IVP PRN ×5 (04:38→20:29)
[2021-05-25] MEDS: PANTOPRAZOLE 40 MG VIAL IVP SCH (06:04)
[2021-05-25 06:23] LABS: BASOPHILS % (AUTO) 0.2 %; EOSINOPHILS # (AUTO) 0.3 10^3/uL (0.0-0.7); EOSINOPHILS % (AUTO) 2.5 %; HCT - HEMATOCRIT 23.7 % (42.0-52.0); HGB - HEMOGLOBIN 7.1 g/dL (14.0-18.0); LYMPHOCYTES # (AUTO) 0.7 10^3/uL (1.5-3.5); MEAN CORPUSCULAR HEMOGLOBIN 27.8 pg (27.0-31.0); MEAN CORPUSCULAR VOLUME 92.9 fL (80.0-94.0); MEAN PLATELET VOLUME 8.8 fL (7.4-11.4); MONOCYTES # (AUTO) 0.3 10^3/uL (0.0-1.0); MONOCYTES % (AUTO) 2.3 %; NEUTROPHILS # (AUTO) 11.9 10^3/uL (1.5-6.6); NEUTROPHILS % (AUTO) 89.2 %; PLT - PLATELET COUNT 314 10^3/uL (130-450); RED BLOOD COUNT 2.55 10^6/uL (4.70-6.10); RED CELL DISTRIBUTION WIDTH 15.7 % (12.0-15.0); WHITE BLOOD COUNT 13.3 x10^3/uL (4.8-10.8)
[2021-05-25 06:47] LABS: ALBUMIN 1.6 g/dL (3.2-5.5); ALBUMIN/GLOBULIN RATIO 0.5 (1.0-2.2); ALKALINE PHOSPHATASE 63 IU/L (42-121); ALT ALANINE AMINOTRANSFERASE 11 IU/L (10-60); AST ASPARTATE AMINOTRANSFERASE < 10 IU/L (10-42); BILIRUBIN,TOTAL 0.7 mg/dL (0.2-1.0); BUN - BLOOD UREA NITROGEN 25 mg/dL (6-20); CALCIUM 7.3 mg/dL (8.5-10.3); CARBON DIOXIDE - CO2 24 mmol/L (21-32); CHLORIDE 103 mmol/L (101-111); CREATININE 0.9 mg/dL (0.6-1.2); GFR - MDRD 83 (>89); GLUCOSE 100 mg/dL (70-100); PHOSPHORUS 3.4 mg/dL (2.5-4.6); PREALBUMIN 3 mg/dL (18-45); SODIUM 134 mmol/L (135-145); TOTAL PROTEIN 4.7 g/dL (6.7-8.2); TRIGLYCERIDES 72 mg/dL
[2021-05-25] MEDS: ENOXAPARIN 40 MG/0.4 ML SYRINGE SUBQ SCH (09:17)
--- NOTE | 2021-05-25 09:34 | PROVIDER PROGRESS NOTE ---
Subjective - General Admit Date: 05/23/21 Procedure Date: 05/23/21 Post Op Days: 2 Procedure Performed: Ex lap with repair of gastric ulcer - Review of Systems Wound/Incisions: positive: Dressing dry and intact Drain Type: serous General: positive: Fatigue HEENT: positive: No symptoms Pulmonary: positive: No symptoms Cardiovascular: positive: No symptoms Gastrointestinal: positive: Abdominal pain. negative: Nausea, Vomiting Genitourinary: positive: No symptoms Musculoskeletal: positive: No symptoms - Other Other Information/Narrative: Feeling much better today. Much stronger. Getting out of bed essentially unassisted and doing range of motion with all of his extremities unassisted. Says his muscles feel stronger today. Pain is well controlled. No complaints. Only got 1 unit of blood with hemoglobin up to 7.1 only. Objective - Patient Data Vital Signs: Vital Signs x48h Pulse Resp BP Pulse Ox 05/25/21 07:00 73 22 109/61 96 Weight: Weight 05/23/21 05/24/21 05/25/21 23:59 23:59 23:59 Weight (kg) 82.1 kg 82.1 kg Intake & Output: Intake and Output Totals x24h 05/23/21 05/24/21 05/25/21 23:59 23:59 23:59 Intake Total 1120.442 6972.667 550 Output Total 1990 2403 800 Balance -137.667 -1105.333 -250 - Lab Results Lab Results: 05/25/21 05:58 05/25/21 05:58 Other Lab Results: Lab Results x24hrs 05/25/21 05/25/21 05/24/21 Range/Units 05:58 05:58 05:02 WBC 13.3 H (4.8-10.8) x10^3/uL RBC 2.55 L (4.70-6.10) 10^6/uL Hgb 7.1 L (14.0-18.0) g/dL Hct 23.7 L (42.0-52.0) % MCV 92.9 (80.0-94.0) fL MCH 27.8 (27.0-31.0) pg MCHC 30.0 L (32.0-36.0) g/dL RDW 15.7 H (12.0-15.0) % Plt Count 314 (130-450) 10^3/uL MPV 8.8 (7.4-11.4) fL Neut # (Auto) 11.9 H (1.5-6.6) 10^3/uL Lymph # (Auto) 0.7 L (1.5-3.5) 10^3/uL [place] # (Auto) 0.3 (0.0-1.0) 10^3/uL Eos # (Auto) 0.3 (0.0-0.7) 10^3/uL Baso # (Auto) 0.0 (0.0-0.1) 10^3/uL Absolute Nucleated RBC 0.00 x10^3/uL Nucleated RBC % 0.0 /100WBC Sodium 134 L (135-145) mmol/L Potassium 4.0 (3.5-5.0) mmol/L Chloride 103 (101-111) mmol/L Carbon Dioxide 24 (21-32) mmol/L Anion Gap 7.0 (6-13) BUN 25 H (6-20) mg/dL Creatinine 0.9 (0.6-1.2) mg/dL Estimated GFR (MDRD) 83 L (>89) Glucose 100 (70-100) mg/dL Calcium 7.3 L (8.5-10.3) mg/dL Phosphorus 3.4 (2.5-4.6) mg/dL Magnesium 2.0 (1.7-2.8) mg/dL Iron (45-182) ug/dL TIBC (250-450) ug/dL % Saturation (20-50) % Transferrin (180-329) mg/dL Ferritin 288.0 (23.9-336.2) ng/mL Total Bilirubin 0.7 (0.2-1.0) mg/dL AST < 10 L (10-42) IU/L ALT 11 (10-60) IU/L Alkaline Phosphatase 63 (42-121) IU/L Total Protein 4.7 L (6.7-8.2) g/dL Albumin 1.6 L (3.2-5.5) g/dL Globulin 3.1 (2.1-4.2) g/dL Albumin/Globulin Ratio 0.5 L (1.0-2.2) Prealbumin 3 L (18-45) mg/dL Triglycerides 72 ( - 149) mg/dL Vitamin B12 720 (180-914) pg/mL Folate 12.13 (5.90 - >24.8) ng/mL Blood Type Antibody Screen Crossmatch IS Only 05/24/21 05/22/21 Range/Units 05:02 22:32 WBC (4.8-10.8) x10^3/uL RBC (4.70-6.10) 10^6/uL Hgb (14.0-18.0) g/dL Hct (42.0-52.0) % MCV (80.0-94.0) fL MCH (27.0-31.0) pg MCHC (32.0-36.0) g/dL RDW (12.0-15.0) % Plt Count (130-450) 10^3/uL MPV (7.4-11.4) fL Neut # (Auto) (1.5-6.6) 10^3/uL Lymph # (Auto) (1.5-3.5) 10^3/uL [place] # (Auto) (0.0-1.0) 10^3/uL Eos # (Auto) (0.0-0.7) 10^3/uL Baso # (Auto) (0.0-0.1) 10^3/uL Absolute Nucleated RBC x10^3/uL Nucleated RBC % /100WBC Sodium (135-145) mmol/L Potassium (3.5-5.0) mmol/L Chloride (101-111) mmol/L Carbon Dioxide (21-32) mmol/L Anion Gap (6-13) BUN (6-20) mg/dL Creatinine (0.6-1.2) mg/dL Estimated GFR (MDRD) (>89) Glucose (70-100) mg/dL Calcium (8.5-10.3) mg/dL Phosphorus (2.5-4.6) mg/dL Magnesium (1.7-2.8) mg/dL Iron 9 L (45-182) ug/dL TIBC 98 L (250-450) ug/dL % Saturation 9 L (20-50) % Transferrin 70 L (180-329) mg/dL Ferritin (23.9-336.2) ng/mL Total Bilirubin (0.2-1.0) mg/dL AST (10-42) IU/L ALT (10-60) IU/L Alkaline Phosphatase (42-121) IU/L Total Protein (6.7-8.2) g/dL Albumin (3.2-5.5) g/dL Globulin (2.1-4.2) g/dL Albumin/Globulin Ratio (1.0-2.2) Prealbumin (18-45) mg/dL Triglycerides ( - 149) mg/dL Vitamin B12 (180-914) pg/mL Folate (5.90 - >24.8) ng/mL Blood Type O POSITIVE Antibody Screen NEGATIVE Crossmatch IS Only See Detail - Imaging Results Radiology Imaging: positive: Final report received Imaging Results Comments: PICC in good position - Current Medications Current Medications: Current Medications Generic Name Dose Route Start Last Admin Trade Name Freq PRN Reason Stop Dose Admin Enoxaparin Sodium 40 mg 05/24/21 09:00 05/25/21 09:17 Enoxaparin 40 Mg/0.4 Ml Syringe SUBQ 40 mg DAILY MICHELLE Administration Hydromorphone HCl 0.5 mg 05/23/21 00:41 05/25/21 08:12 Hydromorphone 0.5 Mg/0.5 Ml Syringe IVP 0.5 mg Q2H PRN Administration PAIN Piperacillin Sod/Tazobactam 100 mls @ 25 mls/hr 05/23/21 02:30 05/25/21 09:17 Sod 3.375 gm/ Sodium Chloride IV 25 mls/hr Q8H MICHELLE Administration Fluconazole 100 mls @ 100 mls/hr 05/23/21 09:00 05/24/21 10:35 Diflucan 200 Mg/100 Ml IV Infused DAILY MICHELLE Infusion Acetaminophen 100 mls @ 400 mls/hr 05/23/21 12:20 05/25/21 06:40 Ofirmev IV Infused Q6HR MICHELLE Infusion Multivitamins 10 ml/ TRACE 2,011 mls @ 75 mls/hr 05/24/21 19:00 05/24/21 18:39 ELEMENTS 1 ml/ Amino Ac/ IV 50 mls/hr Electrol/Dextrose/Calcium TPN/PPN MICHELLE Administration Fat Emulsion Intravenous 250 mls @ 21 mls/hr 05/24/21 19:00 05/25/21 06:15 Intralipid 20% IV Infused 1900 [facility] Infusion Sodium Chloride 1,000 mls @ 25 mls/hr 05/24/21 19:00 05/24/21 18:39 Normal Saline 0.9% IV 50 mls/hr .Q40H MICHELLE Administration Pantoprazole Sodium 40 mg 05/23/21 07:00 05/25/21 06:04 Pantoprazole 40 Mg Vial IVP 40 mg QDAC MICHELLE Administration Phenol/Menthol 1 sprays 05/23/21 00:41 05/25/21 08:12 Phenol Throat [place] 177 Ml MM 1 sprays Q2HR PRN Administration Throat Pain Sodium Chloride 10 ml 05/23/21 01:00 05/25/21 09:25 Sodium Chloride Flush 0.9% 10 Ml Syringe IVP 10 ml 0100,0900,1700 MICHELLE Administration Sodium Chloride 10 ml 05/23/21 00:41 05/25/21 06:03 Sodium Chloride Flush 0.9% 10 Ml Syringe IVP 10 ml PRN PRN Administration NEEDED PER PROVIDER ORDERS Sodium Chloride 20 ml 05/24/21 20:44 05/25/21 06:03 Sodium Chloride Flush 0.9% 10 Ml Syringe IVP 20 ml PRN PRN Administration After Blood Draw - Physical Exam Wound/Incisions: positive: Dressing dry and intact General Appearance: positive: No acute distress Eyes Bilateral: positive: Normal inspection Neck: positive: Nml inspection Respiratory: positive: Chest non-tender, No respiratory distress, Breath sounds nml Cardiovascular: positive: Regular rate & rhythm Abdomen: positive: Tenderness, Other (Wound is clean. Appropriately tender. Few bowel sounds) Skin: positive: Color nml Neurologic/Psychiatric: positive: Oriented x3 ABX Reporting Has patient been on IV antibiotics over the past 48 hours?: Yes Impression/Plan - Problem List Problem List: 1. Continue current antibiotics while awaiting cultures. E coli and one other unidentified gram neg [place]. WBC normalizing on Zosyn and Diflucan 2. TPN started last evening and will continue 3. Still awaiting pathology 4. Drain much more serous and less cloudy today. 5. Transfuse 2 more units PRBCs 6. Leave NGT in place.
[2021-05-25] MEDS ORDERED: SODIUM CHLORIDE 0.9% 500 ML IV ONE (09:39)
[2021-05-25] MEDS: FLUCONAZOLE 200 MG/100 ML 100 ML IV SCH (09:39)
[2021-05-25] MEDS: SODIUM CHLORIDE 0.9% 1,000 ML IV SCH (09:42)
[2021-05-25] MEDS: BENZOCAINE/MENTHOL LOZENGE MM PRN (10:45)
--- NOTE | 2021-05-25 15:42 | XRAY Report ---
PROCEDURE: Chest for Line Placement INDICATIONS: PICC line insertion TECHNIQUE: One view of the chest was acquired. COMPARISON: 05/24/2021 FINDINGS: Surgical changes and devices: Previously seen right upper extremity PICC has been removed. Interval p lacement of the left upper extremity PICC with the distal tip projecting over the junction of the lef t brachiocephalic vein and superior vena cava. Nasogastric tube is present with the distal tip extend ing off the [id number]. Lungs and pleura: No pleural effusions or pneumothorax. Lung volumes are diminished. Minimal streaky bibasilar opacities likely representing atelectasis. Mediastinum: Mediastinal contours appear normal. Heart size is normal. Bones and chest wall: No suspicious bony lesions. Overlying soft tissues appear unremarkable. IMPRESSION: Left upper extremity PICC with distal tip projecting over the junction of the left brachiocephalic ve in and superior vena cava. Diminished lung bones with suspected bibasilar atelectasis. Reviewed by: Flash Draper MD on 05/25/2021 3:40 PM PDT Approved by: Flash Draper MD on 05/25/2021 3:40 PM PDT Station ID: [id number]
--- NOTE | 2021-05-25 16:01 | ANESTHESIA PROCEDURE NOTE ---
Anesth Central Line Template - Central Line Central Line Preparation: Consent Obtained, Time out completed, Ultrasound used, Sterile prep and drape Central line location: Left Basilic Central line type: PICC Double Lumen Central line catheter tip site resides: Superior vena cava (SVC) Central line aftercare: Secured, Placement confirmed, No pneumothorax, No complications, Bundle checklist complete, Pt tolerated well
[2021-05-25] MEDS: FAT EMULSION 20% 250 ML IV SCH (19:08)
[2021-05-25] MEDS: TPN (CLINIMIX E 5/15) 2,000 ML with MULTIVITAMIN 10 ML, TRACE ELEMENTS 1 ML IV SCH ×3 (19:08)
[2021-05-26] MEDS: ACETAMINOPHEN 1,000 MG/100 ML 100 ML IV SCH ×4 (00:03→18:30)
[2021-05-26] MEDS: HYDROmorphone 0.5 MG/0.5 ML SYRINGE IVP PRN ×10 (00:06→22:15)
[2021-05-26] MEDS: SODIUM CHLORIDE FLUSH 0.9% 10 ML SYRINGE IVP PRN ×5 (00:06→06:16)
[2021-05-26] MEDS: PIPERACILLIN/TAZOBACTAM 3.375 GM in SODIUM CHLORIDE 0.9% MINIBAG 100 ML IV SCH (02:09)
[2021-05-26 05:28] LABS: BASOPHILS % (AUTO) 0.3 %; EOSINOPHILS # (AUTO) 0.8 10^3/uL (0.0-0.7); HCT - HEMATOCRIT 25.7 % (42.0-52.0); HGB - HEMOGLOBIN 7.5 g/dL (14.0-18.0); LYMPHOCYTES # (AUTO) 0.8 10^3/uL (1.5-3.5); LYMPHOCYTES % (AUTO) 5.8 %; MEAN CORPUSCULAR HEMOGLOBIN 27.5 pg (27.0-31.0); MEAN CORPUSCULAR HGB CONC 29.2 g/dL (32.0-36.0); MEAN CORPUSCULAR VOLUME 94.1 fL (80.0-94.0); MONOCYTES # (AUTO) 0.4 10^3/uL (0.0-1.0); MONOCYTES % (AUTO) 2.7 %; NEUTROPHILS # (AUTO) 11.4 10^3/uL (1.5-6.6); NEUTROPHILS % (AUTO) 84.3 %; PLT - PLATELET COUNT 307 10^3/uL (130-450); RED BLOOD COUNT 2.73 10^6/uL (4.70-6.10); RED CELL DISTRIBUTION WIDTH 15.9 % (12.0-15.0); WHITE BLOOD COUNT 13.5 x10^3/uL (4.8-10.8)
[2021-05-26 05:32] LABS: ALBUMIN 1.6 g/dL (3.2-5.5); ALBUMIN/GLOBULIN RATIO 0.5 (1.0-2.2); BILIRUBIN,TOTAL 0.5 mg/dL (0.2-1.0); CALCIUM 7.6 mg/dL (8.5-10.3); CREATININE 0.7 mg/dL (0.6-1.2); POTASSIUM 3.9 mmol/L (3.5-5.0); TOTAL PROTEIN 4.9 g/dL (6.7-8.2)
[2021-05-26] MEDS: PANTOPRAZOLE 40 MG VIAL IVP SCH (06:15)
[2021-05-26] MEDS: FLUCONAZOLE 200 MG/100 ML 100 ML IV SCH (08:20)
[2021-05-26] MEDS: ENOXAPARIN 40 MG/0.4 ML SYRINGE SUBQ SCH (08:20)
[2021-05-26] MEDS: SODIUM CHLORIDE FLUSH 0.9% 10 ML SYRINGE IVP SCH ×2 (08:21→17:45)
[2021-05-26] MEDS: CEFEPIME 2 GM in SODIUM CHLORIDE 0.9% MINIBAG 100 ML IV SCH ×2 (10:33→22:15)
--- NOTE | 2021-05-26 16:16 | PROVIDER PROGRESS NOTE ---
Subjective - Prog Note Date Prog Note Date: 05/26/21 Prog Note Time: 12:15 - Subjective Pt reports feeling: No change Subjective: Cu[place]htemoc continues to report feeling well. He took a long walk around the [place] today with his nurse and then took some pain medicine and is about to take a nap. He had a bowel movement and has been passing gas.Cultures grew E. coli and Klebsiella pneumonia both sensitive to cefepime so antibiotic was changed this morning. We will continue Diflucan.He denies any nausea. He is a bit tired but he thinks the blood has really helped him.Still waiting on pathology. Current Medications - Current Medications Current Medications: Active Medications Generic Name Dose Route Start Last Admin Trade Name Freq PRN Reason Stop Dose Admin Enoxaparin Sodium 40 mg 05/24/21 09:00 05/26/21 08:20 Enoxaparin 40 Mg/0.4 Ml Syringe SUBQ 40 mg DAILY MICHELLE Administration Hydromorphone HCl 0.5 mg 05/23/21 00:41 05/26/21 15:27 Hydromorphone 0.5 Mg/0.5 Ml Syringe IVP 0.5 mg Q2H PRN Administration PAIN Hydromorphone HCl 0.5 mg 05/23/21 00:49 Hydromorphone 0.5 Mg/0.5 Ml Syringe IVP Q30M PRN PAIN Fluconazole 100 mls @ 100 mls/hr 05/23/21 09:00 05/26/21 09:00 Diflucan 200 Mg/100 Ml IV Infused DAILY MICHELLE Infusion Acetaminophen 100 mls @ 400 mls/hr 05/23/21 12:20 05/26/21 12:40 Ofirmev IV Infused Q6HR MICHELLE Infusion Multivitamins 10 ml/ TRACE 2,011 mls @ 75 mls/hr 05/24/21 19:00 05/26/21 13:00 ELEMENTS 1 ml/ Amino Ac/ IV 75 mls/hr Electrol/Dextrose/Calcium TPN/PPN MICHELLE Infusion Fat Emulsion Intravenous 250 mls @ 21 mls/hr 05/24/21 19:00 05/26/21 07:10 Intralipid 20% IV Infused 1900 MICHELLE Infusion Sodium Chloride 1,000 mls @ 25 mls/hr 05/24/21 19:00 05/26/21 13:00 Normal Saline 0.9% IV 25 mls/hr .Q40H MICHELLE Infusion Cefepime HCl 2 gm/ Sodium 100 mls @ 200 mls/hr 05/26/21 10:00 05/26/21 11:09 Chloride IV Infused Q12H MICHELLE Infusion Ondansetron HCl 4 mg 05/23/21 00:41 Ondansetron 4 Mg/2 Ml Vial IVP Q6H PRN Nausea / Vomiting Pantoprazole Sodium 40 mg 05/23/21 07:00 05/26/21 06:15 Pantoprazole 40 Mg Vial IVP 40 mg QDAC MICHELLE Administration Phenol/Menthol 1 sprays 05/23/21 00:41 05/25/21 08:12 Phenol Throat [place] 177 Ml MM 1 sprays Q2HR PRN Administration Throat Pain Sodium Chloride 10 ml 05/23/21 01:00 05/26/21 08:21 Sodium Chloride Flush 0.9% 10 Ml Syringe IVP 10 ml 0100,0900,1700 MICHELLE Administration Sodium Chloride 10 ml 05/23/21 00:41 05/26/21 06:16 Sodium Chloride Flush 0.9% 10 Ml Syringe IVP 10 ml PRN PRN Administration NEEDED PER PROVIDER ORDERS Sodium Chloride 20 ml 05/24/21 20:44 05/26/21 04:36 Sodium Chloride Flush 0.9% 10 Ml Syringe IVP 20 ml PRN PRN Administration After Blood Draw Throat Lozenges 1 lozenge 05/24/21 19:51 05/25/21 10:45 Benzocaine/Menthol Lozenge MM 1 lozenge Q2HR PRN Administration Throat pain No Known Home Medications 05/22/21 Objective - Vital Signs/Intake & Output Reviewed Vital Signs: Yes Vital Signs: Vital Signs x48h Temp Pulse Resp BP Pulse Ox 05/26/21 13:00 71 21 117/66 05/26/21 12:00 37 C 69 20 133/71 H 97 05/26/21 11:05 129/72 05/26/21 11:00 70 16 05/26/21 10:00 68 20 121/70 97 05/26/21 09:00 36.8 C 70 18 131/68 H Intake & Output: Intake & Output 05/23/21 05/24/21 05/25/21 05/26/21 23:59 23:59 23:59 23:59 Intake Total 6266.869 6692.667 3788.750 2715.000 Output Total 1989 7971 2130 1768 Balance -137.667 -3549.599 0416.750 947.000 - Objective General Appearance: positive: No acute distress, Alert Eyes Bilateral: positive: Normal inspection, PERRL, EOMI Neck: positive: Nml inspection Respiratory: positive: Chest non-tender, No respiratory distress, Breath sounds nml Cardiovascular: positive: Regular rate & rhythm Abdomen: positive: Nml bowel sounds, Tenderness Neurologic/Psychiatric: positive: Oriented x3 - Lab Results Fish Bones: 05/26/21 04:35 05/26/21 04:35 Other Labs: Lab Results x24hrs 05/26/21 05/26/21 05/26/21 Range/Units 12:30 06:19 04:35 WBC (4.8-10.8) x10^3/uL RBC (4.70-6.10) 10^6/uL Hgb (14.0-18.0) g/dL Hct (42.0-52.0) % MCV (80.0-94.0) fL MCH (27.0-31.0) pg MCHC (32.0-36.0) g/dL RDW (12.0-15.0) % Plt Count (130-450) 10^3/uL MPV (7.4-11.4) fL Neut # (Auto) (1.5-6.6) 10^3/uL Lymph # (Auto) (1.5-3.5) 10^3/uL [place] # (Auto) (0.0-1.0) 10^3/uL Eos # (Auto) (0.0-0.7) 10^3/uL Baso # (Auto) (0.0-0.1) 10^3/uL Absolute Nucleated RBC x10^3/uL Nucleated RBC % /100WBC Sodium 136 (135-145) mmol/L Potassium 3.9 (3.5-5.0) mmol/L Chloride 103 (101-111) mmol/L Carbon Dioxide 26 (21-32) mmol/L Anion Gap 7.0 (6-13) BUN 20 (6-20) mg/dL Creatinine 0.7 (0.6-1.2) mg/dL Estimated GFR (MDRD) 111 (>89) Glucose 215 H (70-100) mg/dL POC Whole Bld Glucose 110 H 114 H (70 - 100) mg/dL Calcium 7.6 L (8.5-10.3) mg/dL Total Bilirubin 0.5 (0.2-1.0) mg/dL AST 11 (10-42) IU/L ALT 10 (10-60) IU/L Alkaline Phosphatase 63 (42-121) IU/L Total Protein 4.9 L (6.7-8.2) g/dL Albumin 1.6 L (3.2-5.5) g/dL Globulin 3.3 (2.1-4.2) g/dL Albumin/Globulin Ratio 0.5 L (1.0-2.2) 05/26/21 05/26/21 05/25/21 Range/Units 04:35 00:09 18:31 WBC 13.5 H (4.8-10.8) x10^3/uL RBC 2.73 L (4.70-6.10) 10^6/uL Hgb 7.5 L (14.0-18.0) g/dL Hct 25.7 L (42.0-52.0) % MCV 94.1 H (80.0-94.0) fL MCH 27.5 (27.0-31.0) pg MCHC 29.2 L (32.0-36.0) g/dL RDW 15.9 H (12.0-15.0) % Plt Count 307 (130-450) 10^3/uL MPV 9.0 (7.4-11.4) fL Neut # (Auto) 11.4 H (1.5-6.6) 10^3/uL Lymph # (Auto) 0.8 L (1.5-3.5) 10^3/uL [place] # (Auto) 0.4 (0.0-1.0) 10^3/uL Eos # (Auto) 0.8 H (0.0-0.7) 10^3/uL Baso # (Auto) 0.0 (0.0-0.1) 10^3/uL Absolute Nucleated RBC 0.00 x10^3/uL Nucleated RBC % 0.0 /100WBC Sodium (135-145) mmol/L Potassium (3.5-5.0) mmol/L Chloride (101-111) mmol/L Carbon Dioxide (21-32) mmol/L Anion Gap (6-13) BUN (6-20) mg/dL Creatinine (0.6-1.2) mg/dL Estimated GFR (MDRD) (>89) Glucose (70-100) mg/dL POC Whole Bld Glucose 119 H 78 (70 - 100) mg/dL Calcium (8.5-10.3) mg/dL Total Bilirubin (0.2-1.0) mg/dL AST (10-42) IU/L ALT (10-60) IU/L Alkaline Phosphatase (42-121) IU/L Total Protein (6.7-8.2) g/dL Albumin (3.2-5.5) g/dL Globulin (2.1-4.2) g/dL Albumin/Globulin Ratio (1.0-2.2) 05/25/21 05/25/21 05/25/21 Range/Units 12:31 06:14 00:11 WBC (4.8-10.8) x10^3/uL RBC (4.70-6.10) 10^6/uL Hgb (14.0-18.0) g/dL Hct (42.0-52.0) % MCV (80.0-94.0) fL MCH (27.0-31.0) pg MCHC (32.0-36.0) g/dL RDW (12.0-15.0) % Plt Count (130-450) 10^3/uL MPV (7.4-11.4) fL Neut # (Auto) (1.5-6.6) 10^3/uL Lymph # (Auto) (1.5-3.5) 10^3/uL [place] # (Auto) (0.0-1.0) 10^3/uL Eos # (Auto) (0.0-0.7) 10^3/uL Baso # (Auto) (0.0-0.1) 10^3/uL Absolute Nucleated RBC x10^3/uL Nucleated RBC % /100WBC Sodium (135-145) mmol/L Potassium (3.5-5.0) mmol/L Chloride (101-111) mmol/L Carbon Dioxide (21-32) mmol/L Anion Gap (6-13) BUN (6-20) mg/dL Creatinine (0.6-1.2) mg/dL Estimated GFR (MDRD) (>89) Glucose (70-100) mg/dL POC Whole Bld Glucose 100 88 89 (70 - 100) mg/dL Calcium (8.5-10.3) mg/dL Total Bilirubin (0.2-1.0) mg/dL AST (10-42) IU/L ALT (10-60) IU/L Alkaline Phosphatase (42-121) IU/L Total Protein (6.7-8.2) g/dL Albumin (3.2-5.5) g/dL Globulin (2.1-4.2) g/dL Albumin/Globulin Ratio (1.0-2.2) 05/24/21 05/24/21 05/23/21 Range/Units 18:46 11:50 23:56 WBC (4.8-10.8) x10^3/uL RBC (4.70-6.10) 10^6/uL Hgb (14.0-18.0) g/dL Hct (42.0-52.0) % MCV (80.0-94.0) fL MCH (27.0-31.0) pg MCHC (32.0-36.0) g/dL RDW (12.0-15.0) % Plt Count (130-450) 10^3/uL MPV (7.4-11.4) fL Neut # (Auto) (1.5-6.6) 10^3/uL Lymph # (Auto) (1.5-3.5) 10^3/uL [place] # (Auto) (0.0-1.0) 10^3/uL Eos # (Auto) (0.0-0.7) 10^3/uL Baso # (Auto) (0.0-0.1) 10^3/uL Absolute Nucleated RBC x10^3/uL Nucleated RBC % /100WBC Sodium (135-145) mmol/L Potassium (3.5-5.0) mmol/L Chloride (101-111) mmol/L Carbon Dioxide (21-32) mmol/L Anion Gap (6-13) BUN (6-20) mg/dL Creatinine (0.6-1.2) mg/dL Estimated GFR (MDRD) (>89) Glucose (70-100) mg/dL POC Whole Bld Glucose 85 93 119 H (70 - 100) mg/dL Calcium (8.5-10.3) mg/dL Total Bilirubin (0.2-1.0) mg/dL AST (10-42) IU/L ALT (10-60) IU/L Alkaline Phosphatase (42-121) IU/L Total Protein (6.7-8.2) g/dL Albumin (3.2-5.5) g/dL Globulin (2.1-4.2) g/dL Albumin/Globulin Ratio (1.0-2.2) ABX Reporting Has patient been on IV antibiotics over the past 48 hours?: Yes Assessment/Plan - Problem List (1) Perforated abdominal viscus Impression: Improving overall 1. Continue TPN 2. Change abdominal dressing tomorrow 3. Okay to transfer to floor status 4. Awaiting pathology 5. Will consider gastroesophageal leak study on Monday if not earlier
[2021-05-26] MEDS: TPN (CLINIMIX E 5/15) 2,000 ML with MULTIVITAMIN 10 ML, TRACE ELEMENTS 1 ML IV SCH ×3 (18:26)
[2021-05-26] MEDS: FAT EMULSION 20% 250 ML IV SCH (18:28)
[2021-05-26] MEDS ORDERED: SODIUM CHLORIDE 0.65% NASAL SPRAY NAS PRN (21:04)
[2021-05-26] MEDS: metroNIDAZOLE 500 MG/100 ML 500 MG/100 ML BAG IV SCH (22:16)
[2021-05-27] MEDS: SODIUM CHLORIDE FLUSH 0.9% 10 ML SYRINGE IVP SCH ×3 (00:08→16:12)
[2021-05-27] MEDS: ACETAMINOPHEN 1,000 MG/100 ML 100 ML IV SCH ×4 (00:08→17:56)
[2021-05-27] MEDS: HYDROmorphone 0.5 MG/0.5 ML SYRINGE IVP PRN ×11 (00:09→21:54)
[2021-05-27 05:11] LABS: BASOPHILS # (AUTO) 0.1 10^3/uL (0.0-0.1); BASOPHILS % (AUTO) 0.4 %; EOSINOPHILS # (AUTO) 0.4 10^3/uL (0.0-0.7); EOSINOPHILS % (AUTO) 3.2 %; HGB - HEMOGLOBIN 7.7 g/dL (14.0-18.0); LYMPHOCYTES # (AUTO) 0.4 10^3/uL (1.5-3.5); LYMPHOCYTES % (AUTO) 3.3 %; MEAN CORPUSCULAR HEMOGLOBIN 27.6 pg (27.0-31.0); MEAN CORPUSCULAR HGB CONC 29.6 g/dL (32.0-36.0); MEAN CORPUSCULAR VOLUME 93.2 fL (80.0-94.0); MEAN PLATELET VOLUME 8.9 fL (7.4-11.4); MONOCYTES # (AUTO) 0.2 10^3/uL (0.0-1.0); MONOCYTES % (AUTO) 1.3 %; NEUTROPHILS # (AUTO) 10.3 10^3/uL (1.5-6.6); NEUTROPHILS % (AUTO) 91.4 %; PLT - PLATELET COUNT 285 10^3/uL (130-450); RED BLOOD COUNT 2.79 10^6/uL (4.70-6.10); RED CELL DISTRIBUTION WIDTH 15.5 % (12.0-15.0); WHITE BLOOD COUNT 11.3 x10^3/uL (4.8-10.8)
[2021-05-27 05:23] LABS: ALBUMIN 1.7 g/dL (3.2-5.5); ALBUMIN/GLOBULIN RATIO 0.5 (1.0-2.2); BILIRUBIN,TOTAL 0.9 mg/dL (0.2-1.0); CALCIUM 7.7 mg/dL (8.5-10.3); CREATININE 0.6 mg/dL (0.6-1.2); MAGNESIUM 1.9 mg/dL (1.7-2.8); PHOSPHORUS 2.6 mg/dL (2.5-4.6); POTASSIUM 3.8 mmol/L (3.5-5.0); TOTAL PROTEIN 5.1 g/dL (6.7-8.2)
[2021-05-27] MEDS: PANTOPRAZOLE 40 MG VIAL IVP SCH (06:37)
[2021-05-27] MEDS: SODIUM CHLORIDE 0.9% 1,000 ML IV SCH (06:37)
[2021-05-27] MEDS: metroNIDAZOLE 500 MG/100 ML 500 MG/100 ML BAG IV SCH ×3 (06:37→22:00)
[2021-05-27] MEDS: ENOXAPARIN 40 MG/0.4 ML SYRINGE SUBQ SCH (08:55)
[2021-05-27] MEDS: FLUCONAZOLE 200 MG/100 ML 100 ML IV SCH (08:56)
[2021-05-27] MEDS: CEFEPIME 2 GM in SODIUM CHLORIDE 0.9% MINIBAG 100 ML IV SCH ×2 (08:58→21:10)
--- NOTE | 2021-05-27 15:15 | PROVIDER PROGRESS NOTE ---
Subjective - General Admit Date: 05/23/21 Procedure Date: 05/23/21 Post Op Days: 4 Procedure Performed: Ex lap with repair of gastric ulcer - Review of Systems Wound/Incisions: positive: Dressing dry and intact Drain Type: serous General: positive: Fatigue HEENT: positive: No symptoms Pulmonary: positive: No symptoms Cardiovascular: positive: No symptoms Gastrointestinal: positive: Abdominal pain. negative: Nausea, Vomiting Genitourinary: positive: No symptoms Musculoskeletal: positive: No symptoms - Other Other Information/Narrative: Reports he is not really having abdominal pain but he was awake most the night coughing.His weight is up significantly. He had one episode of fever yesterday and has been afebrile since. White count decreased again today. Objective - Patient Data Vital Signs: Vital Signs x48h Temp Pulse Resp BP BP Pulse Ox 05/27/21 11:27 37 C 72 16 122/57 L 94 05/27/21 08:10 37.2 C 76 20 123/57 L 98 Weight: Weight 05/25/21 05/26/21 05/27/21 23:59 23:59 23:59 Weight (kg) 83.5 kg 87 kg Intake & Output: Intake and Output Totals x24h 05/25/21 05/26/21 05/27/21 23:59 23:59 23:59 Intake Total 3788.750 3626.200 891.35 Output Total 2130 1768 765 Balance 1511.843 1886.200 126.35 - Lab Results Lab Results: 05/27/21 04:47 05/27/21 04:47 Other Lab Results: Lab Results x24hrs 05/27/21 05/27/21 05/27/21 Range/Units 11:16 04:47 04:47 WBC 11.3 H (4.8-10.8) x10^3/uL RBC 2.79 L (4.70-6.10) 10^6/uL Hgb 7.7 L (14.0-18.0) g/dL Hct 26.0 L (42.0-52.0) % MCV 93.2 (80.0-94.0) fL MCH 27.6 (27.0-31.0) pg MCHC 29.6 L (32.0-36.0) g/dL RDW 15.5 H (12.0-15.0) % Plt Count 285 (130-450) 10^3/uL MPV 8.9 (7.4-11.4) fL Neut # (Auto) 10.3 H (1.5-6.6) 10^3/uL Lymph # (Auto) 0.4 L (1.5-3.5) 10^3/uL Kerr # (Auto) 0.2 (0.0-1.0) 10^3/uL Eos # (Auto) 0.4 (0.0-0.7) 10^3/uL Baso # (Auto) 0.1 (0.0-0.1) 10^3/uL Absolute Nucleated RBC 0.00 x10^3/uL Nucleated RBC % 0.0 /100WBC Sodium 135 (135-145) mmol/L Potassium 3.8 (3.5-5.0) mmol/L Chloride 102 (101-111) mmol/L Carbon Dioxide 26 (21-32) mmol/L Anion Gap 7.0 (6-13) BUN 19 (6-20) mg/dL Creatinine 0.6 (0.6-1.2) mg/dL Estimated GFR (MDRD) 132 (>89) Glucose 118 H (70-100) mg/dL POC Whole Bld Glucose 104 H (70 - 100) mg/dL Calcium 7.7 L (8.5-10.3) mg/dL Phosphorus 2.6 (2.5-4.6) mg/dL Magnesium 1.9 (1.7-2.8) mg/dL Total Bilirubin 0.9 (0.2-1.0) mg/dL AST 10 (10-42) IU/L ALT 10 (10-60) IU/L Alkaline Phosphatase 76 (42-121) IU/L Total Protein 5.1 L (6.7-8.2) g/dL Albumin 1.7 L (3.2-5.5) g/dL Globulin 3.4 (2.1-4.2) g/dL Albumin/Globulin Ratio 0.5 L (1.0-2.2) Prealbumin 3 L (18-45) mg/dL Triglycerides 106 ( - 149) mg/dL 05/27/21 05/26/21 Range/Units 00:06 19:20 WBC (4.8-10.8) x10^3/uL RBC (4.70-6.10) 10^6/uL Hgb (14.0-18.0) g/dL Hct (42.0-52.0) % MCV (80.0-94.0) fL MCH (27.0-31.0) pg MCHC (32.0-36.0) g/dL RDW (12.0-15.0) % Plt Count (130-450) 10^3/uL MPV (7.4-11.4) fL Neut # (Auto) (1.5-6.6) 10^3/uL Lymph # (Auto) (1.5-3.5) 10^3/uL Kerr # (Auto) (0.0-1.0) 10^3/uL Eos # (Auto) (0.0-0.7) 10^3/uL Baso # (Auto) (0.0-0.1) 10^3/uL Absolute Nucleated RBC x10^3/uL Nucleated RBC % /100WBC Sodium (135-145) mmol/L Potassium (3.5-5.0) mmol/L Chloride (101-111) mmol/L Carbon Dioxide (21-32) mmol/L Anion Gap (6-13) BUN (6-20) mg/dL Creatinine (0.6-1.2) mg/dL Estimated GFR (MDRD) (>89) Glucose (70-100) mg/dL POC Whole Bld Glucose 132 H 117 H (70 - 100) mg/dL Calcium (8.5-10.3) mg/dL Phosphorus (2.5-4.6) mg/dL Magnesium (1.7-2.8) mg/dL Total Bilirubin (0.2-1.0) mg/dL AST (10-42) IU/L ALT (10-60) IU/L Alkaline Phosphatase (42-121) IU/L Total Protein (6.7-8.2) g/dL Albumin (3.2-5.5) g/dL Globulin (2.1-4.2) g/dL Albumin/Globulin Ratio (1.0-2.2) Prealbumin (18-45) mg/dL Triglycerides ( - 149) mg/dL - Current Medications Current Medications: Current Medications Generic Name Dose Route Start Last Admin Trade Name Freq PRN Reason Stop Dose Admin Enoxaparin Sodium 40 mg 05/24/21 09:00 05/27/21 08:55 Enoxaparin 40 Mg/0.4 Ml Syringe SUBQ 40 mg DAILY MICHELLE Administration Hydromorphone HCl 0.5 mg 05/23/21 00:41 05/27/21 13:38 Hydromorphone 0.5 Mg/0.5 Ml Syringe IVP 0.5 mg Q2H PRN Administration PAIN Fluconazole 100 mls @ 100 mls/hr 05/23/21 09:00 05/27/21 08:56 Diflucan 200 Mg/100 Ml IV 100 mls/hr DAILY MICHELLE Administration Acetaminophen 100 mls @ 400 mls/hr 05/23/21 12:20 05/27/21 11:10 Ofirmev IV 400 mls/hr Q6HR MICHELLE Administration Multivitamins 10 ml/ TRACE 2,011 mls @ 75 mls/hr 05/24/21 19:00 05/26/21 19:00 ELEMENTS 1 ml/ Amino Ac/ IV 75 mls/hr Electrol/Dextrose/Calcium TPN/PPN MICHELLE Infusion Fat Emulsion Intravenous 250 mls @ 21 mls/hr 05/24/21 19:00 05/27/21 06:01 Intralipid 20% IV 0 mls/hr 1900 MICHELLE Infusion Sodium Chloride 1,000 mls @ 25 mls/hr 05/24/21 19:00 05/27/21 06:37 Normal Saline 0.9% IV 25 mls/hr .Q40H MICHELLE Administration Cefepime HCl 2 gm/ Sodium 100 mls @ 200 mls/hr 05/26/21 10:00 05/27/21 14:25 Chloride IV Infused Q12H MICHELLE Infusion Metronidazole 500 mg in 100 mls @ 100 mls/hr 05/26/21 22:00 05/27/21 14:00 Flagyl 500 Mg/100 Ml IV Infused Q8H MICHELLE Infusion Pantoprazole Sodium 40 mg 05/23/21 07:00 05/27/21 06:37 Pantoprazole 40 Mg Vial IVP 40 mg QDAC MICHELLE Administration Phenol/Menthol 1 sprays 05/23/21 00:41 05/25/21 08:12 Phenol Throat [place] 177 Ml MM 1 sprays Q2HR PRN Administration Throat Pain Sodium Chloride 10 ml 05/23/21 01:00 05/27/21 09:00 Sodium Chloride Flush 0.9% 10 Ml Syringe IVP 10 ml 0100,0900,1700 MICHELLE Administration Sodium Chloride 10 ml 05/23/21 00:41 05/26/21 06:16 Sodium Chloride Flush 0.9% 10 Ml Syringe IVP 10 ml PRN PRN Administration NEEDED PER PROVIDER ORDERS Sodium Chloride 20 ml 05/24/21 20:44 05/26/21 04:36 Sodium Chloride Flush 0.9% 10 Ml Syringe IVP 20 ml PRN PRN Administration After Blood Draw Sodium Chloride 2 sprays 05/26/21 21:04 05/26/21 22:17 Sodium Chloride 0.65% Nasal [place] JOSEFINA 1 spray Q4HR PRN Administration Nasal Congestion Throat Lozenges 1 lozenge 05/24/21 19:51 05/25/21 10:45 Benzocaine/Menthol Lozenge MM 1 lozenge Q2HR PRN Administration Throat pain - Physical Exam Wound/Incisions: positive: Healing well, No drainage. negative: Erythema General Appearance: positive: No acute distress, Lethargic Eyes Bilateral: positive: Normal inspection Neck: positive: Nml inspection, No JVD Respiratory: positive: Rhonchi, Other (Lots of upper airway noise) Cardiovascular: positive: Regular rate & rhythm Abdomen: positive: Nml bowel sounds (Active bowel sounds. Continues to pass flatus.), Tenderness. negative: Guarding, Rebound Extremities: positive: Non-tender, Full ROM Neurologic/Psychiatric: positive: Oriented x3 ABX Reporting Has patient been on IV antibiotics over the past 48 hours?: Yes Impression/Plan - Problem List Problem List: Perforated gastric ulcer in the setting of a 71-year-old gentleman with chronic malnutrition due to a 72 pound weight loss over a period of 4 to 5 months.I agree with the dietitian that he is probably fluid overloaded. Will check a chest x-ray and give him a dose of Lasix. Plan to try CT with Gastrografin tomorrow to evaluate for leak or abscess.
[2021-05-27] MEDS ORDERED: FUROSEMIDE 20 MG/2 ML VIAL IVP ONE (16:00)
--- NOTE | 2021-05-27 16:43 | XRAY Report ---
PROCEDURE: Chest 2 View X-Ray INDICATIONS: New cough TECHNIQUE: 2 view(s) of the chest. COMPARISON: 05/25/2021 FINDINGS: Surgical changes and devices: Enteric tube terminates below the diaphragm outside the [id number]. Lungs and pleura: No pleural effusions or pneumothorax. No focal consolidation or new acute airspace opacity. Low lung volumes. Mediastinum: Mediastinal contours are normal. Heart size is enlarged. Bones and chest wall: No suspicious bony abnormalities. Soft tissues appear unremarkable. IMPRESSION: Low lung volumes. No focal consolidation 4 new acute airspace opacity identified. Reviewed by: Sony Marquez MD on 05/27/2021 4:41 PM PDT Approved by: Sony Marquez MD on 05/27/2021 4:41 PM PDT Station ID: [id number]
[2021-05-27] MEDS: TPN (CLINIMIX E 5/15) 2,000 ML with MULTIVITAMIN 10 ML, TRACE ELEMENTS 1 ML IV SCH ×3 (19:42)
[2021-05-27] MEDS: FAT EMULSION 20% 250 ML IV SCH (19:42)
[2021-05-27] MEDS ORDERED: IOVERSOL 320 100 ML VIAL IVP ONE ×2 (22:21→23:33)
[2021-05-27 23:06] LABS: B. PARAPERTUSSIS- RESP PCR PAN NOT DETECTED; B. PERTUSSIS- RESP PCR PANEL NOT DETECTED; C. PNEUMONIAE- RESP PCR PANEL NOT DETECTED; CORONAVIRUS 229E-RESP PCR NOT DETECTED; CORONAVIRUS HKU1-RESP PCR NOT DETECTED; CORONAVIRUS NL63-RESP PCR NOT DETECTED; CORONAVIRUS OC43-RESP PCR NOT DETECTED; HUMAN METAPNEUMOVIRUS NOT DETECTED; INFLUENZA A- RESP PCR PANEL NOT DETECTED; INFLUENZA B - RESP PCR PANEL NOT DETECTED; M. PNEUMONIAE- RESP PCR PANEL NOT DETECTED; PARAINFLUENZA VIRUS 1 NOT DETECTED; PARAINFLUENZA VIRUS 2 NOT DETECTED; PARAINFLUENZA VIRUS 3 NOT DETECTED; PARAINFLUENZA VIRUS 4 NOT DETECTED; RHINOVIRUS/ENTEROVIRUS NOT DETECTED; RSV- RESP PCR PANEL NOT DETECTED; SARS-CoV-2 -RESP PCR PANEL NOT DETECTED
--- NOTE | 2021-05-27 23:10 | CONSULTATION NOTE ---
Referring Provider Name of Referring Provider:: Livier Franklin MD Consult Date: 05/27/21 Chief Complaint - Chief Complaint Chief Complaint: new cough and fever in post op patient History of Present Illness - Admitted From Admitted From:: Home - History Obtained From Records Reviewed: [facility] History obtained from: Patient and Dr. 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 He has not been doing well. Prior to the surgery he had lost about 35 pounds due to early satiety and food aversion. 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 He has family in [place]. He was born and raised in the [place] area. So when he got sick, he had his surgery done at the [facility]. Stayed there in the hospital for close to 6 weeks until he was able to pass gas and have a bowel movement and was getting TPN. Stayed with one of his daughters who is an RN. Once he was able to recover enough to travel, he returned to [facility] where he lives. After the surgery he continues with diminished appetite. Living on eggs or Ramen for the last few weeks without further weight loss. The only food he truly enjoys is sashimi. He has been having dyspepsia, nonspecific epigastric discomfort for which he was treating himself with apple cider vinegar every day. He says it that helps. We do not have any previous records on them. He is followed by the [facility] As retired [employer]. His regular physician is Dr. Sudhakar Villarreal in [facility]. He presented to the emergency room on May 22 with sudden onset of abdominal pain that has been going on for about 24 hours. It started in the left lower quadrant, and then his entire abdomen started aching over the course of 24 hours. No emesis. Did have flatus. Last normal bowel movement was May 21. He did not have any antecedent symptoms of bloody stool, dark stool, or change in BMs. Most of his weight loss had been associated with his jejunal plasty and had been stable after surgery. He cannot quite explain why he was living on Ramen noodles and eggs. In the emergency room his blood pressure was 155/85. Respirations 25. Heart rate 99. Temperature 36.9. He had normal bowel sounds but diffuse tenderness in the lower abdomen to light touch. Mild distention. His white cell count was 15.9. Hemoglobin 8.5. Troponin 4.4. Lactic acid 1.9. CT abdomen and pelvis was obtained. And it had a perforated viscus likely secondary to gastric ulcer. He also continued to have a large retroperitoneal mesenteric mass. Dr. Franklin took him to the operating room for an exploratory lap with direct repair of gastric ulcer, Luca patch, evacuation of intra-abdominal abscess, drain placement and NG feeding tube. He has been getting TPN. He is on empiric antibiotic therapy with cefepime, Diflucan, and Flagyl. He was initially on Zosyn starting on May 22 but that was stopped August 25. He spiked a temp to 38 degrees and cefepime was resumed in place of Zosyn. He has not had a fever since the 38.8 degrees that was at 7:41 PM on the . Overall his fluid balance is relatively stable. Between May 22 and now he is positive 4057 cc. Slow surgical progress. Preoperative malnutrition with a total protein of 6.1, albumin 2.3, prealbumin 3. The patient states that he is just really weak, tired. Just holding on. But last night he describes a subtle change that he did not have before. While he aches from the surgical site, he really has not had much pain anywhere else. He has had pleurisy in the past and he does not have pleurisy now. But last night he was annoyed that he was not getting his pain medicine every 2 hours and he attributes his current status to not getting pain medicine which resulted in a lack of sleep and a new cough. Cough was mild initially and has progressed to constant. He states that he is coughing probably every 45 seconds to every 2 minutes. Productive of clear phlegm. Feels congested but denies a pleuritic component and or shortness of breath. No palpitations. He is on lovenox for DVT prophylaxis. He denies sweats. Fever. He denies new joint pain, back pain. No headache, blurred vision. No sore throat, runny nose. His Covid test was negative on admission. Denies any urgency, frequency, dysuria or hematuria. No new skin rash. Dr. Franklin obtained a chest x-ray on him today and it shows him to have low lung volumes with 4 new acute airspace opacities identified. She is concerned about the x-ray and would like us to consult. History - Past Medical History Cardiovascular: reports: Hypertension Respiratory: reports: None Neuro: reports: Migraines, Tremors Endocrine/Autoimmune: reports: None GI: reports: Ulcers : reports: None Psych: reports: None Musculoskeletal: reports: Osteoarthritis Derm: reports: None MRSA Hx?: No - Past Surgical History General: reports: Gastric surgery (October 2020) Ortho: reports: Hip replacement (2019) /RN DOCUMENT IMPROVEMENT: reports: Other (Left hydrocele surgery) - Family & Social History Family History Comment/Other: Dad at age 88. Sitting in a chair 1 day, taking a nap and just went to sleep and never woke up. Healthy. Mom at age 77. She had a series of strokes, was a diabetic, but eventually of colon cancer. 3 siblings. 1 sister is a right tired purifying plant operator with severe arthritis. 1 sister of hepatitis C. 1 brother has severe COPD and smokes 2 to 3 packs/day. 2 children. Both healthy. Living arrangement: At home Living Situation: With spouse/s.o. Social History Notes: Former smoker. Started the age of 12. Usually only smoked 1 or 2 cigarettes a day. In college increased to maybe 3 or 4 cigarettes a day. 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 He likes his scotch. He was drinking up to 3 or 4 drinks a day. No history of withdrawal or cirrhosis. No history of recreational substance abuse.He is to his second . He had his 2 kids with his first . 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 Sometimes he works for the [employer]. Sometimes he works for the [employer] systems. When he got sick in [place] he was actually working part-time for the [employer] there. - Substance History Use: Uses substance without health or social issues: Alcohol Abuse: Recurrent use of substance despite neg consequences: NONE Dependence: Experiences withdrawal or developed tolerances: NONE - POLST Patient has POLST: No POLST Status: Full Code Meds/Allgy - Home Medications Home Medications: Ambulatory Orders Medication Instructions Recorded Confirmed No Known Home Medications 05/22/21 05/22/21 - Allergies Allergies/Adverse Reactions: Allergies Allergy/AdvReac Type Severity Reaction Status Date / Time No Known Drug Allergies Allergy Verified 05/22/21 20:09 Review of Systems - Constitutional Constitutional: reports: Fatigue, Malaise, Weakness, Poor appetite - Eyes Eyes: denies: Pain, Irritation, Amaurosis, Blurred vision, Field loss, Vision loss - Ears, Nose & Throat Ears, Nose & Throat: denies: Hearing loss, Hearing aids, Vertigo, Nasal pain, Nasal discharge, Sore throat, Hoarseness - Cardiovascular Cariovascular: reports: Edema, Exertional dyspnea, Decr. exercise tolerance. denies: Irregular heart rate, Palpitations, Chest pain, Lightheadedness, Syncope - Respiratory Respiratory: reports: Cough. denies: Sputum production, Wheezing, Snoring, SOB at rest, SOB with exertion - Gastrointestinal Gastrointestinal: reports: Abdominal pain, Nausea. denies: Abdominal distention, Constipation, Diarrhea, Change in bowel habits, Rectal bleeding, Black stools, Bloody stools, Vomiting - Genitourinary Genitourinary: denies: Dysuria, Frequency, Urgency, Hematuria, Flank pain - Musculoskeletal Musculoskeletal: denies: Muscle pain, Back pain, Muscle aches, Stiffness, Gout, Joint pain - Integumentary Integumentary: denies: Rash, Pruritis, Lesions - Neurological Neurological: reports: General weakness, Dizziness. denies: Focal weakness, Headache, Memory problems, Pre-existing deficit, Abnormal gait - Psychiatric Psychiatric: denies: Depression, Anxiety, Suicidal, Delusions, Hallucinations - Endocrine Endocrine: reports: Intolerance to cold. denies: Polyuria, Polydypsia, Poly phagia - Hematologic/Lymphatic Hematologic/Lymphatic: reports: Anemia, Bruising. denies: Petechiae, Blood clots, Lymphadenopathy Exam - Vital Signs Reviewed Vital Signs: Yes Vital Signs: Vital Signs x48h Temp Pulse Resp BP Pulse Ox 05/27/21 18:05 36.4 C L 69 24 116/59 L 98 - Physical Exam General Appearance: positive: No acute distress, Alert, Other (Appears very weak, fatigued. Getting up to go to the bathroom wiped him out.5 feet 7 inches white male who is 87 kg, who denies shortness of breath but seems to be panting at times when he speaks to me.) Eyes Bilateral: positive: PERRL, EOMI ENT: positive: No signs of dehydration, Other (NG tube in right nares.) Neck: positive: No JVD. negative: Lymphadenopathy (R), Lymphadenopathy (L), Stiff neck Respiratory: positive: Rhonchi, Other (Constant cough. Weak. You can hear phlegm try to get up but he does not bring it all the way up. If he does bring it up it is clear.). negative: Wheezes, Rales Cardiovascular: positive: Regular rate & rhythm, Systolic murmur. negative: Gallop/S4, Friction rub Peripheral Pulses: positive: 1+ Abdomen: positive: Tenderness (Minimal, diffuse.), Other (Having flatus and BM). negative: No organomegaly, Nml bowel sounds, No distention, Guarding, Rebound Skin: positive: Warm, Dry, Pallor Extremities: positive: Full ROM, No pedal edema Neurologic/Psychiatric: positive: Oriented x3, CN's nml (2-12), Motor nml, Weakness (Mild and generalized but he is able to get up without assist. Walks to the bathroom sits on the toilet. Gets up by himself to get back in bed. This effort just exhausts him.) Conclusion/Plan - Problem List (1) Abnormal chest xray Conclusion/Plan: In a patient who is not fluid overloaded, but is postoperative, has an NG, and is getting TPN. No hypoxia, no current fever, white cell count going down. Current chest x-ray shows new infiltrates that are small. Multifocal. Lung exam shows rhonchi and phlegm on physical exam. Concern would be for aspiration, septic emboli, hospital-acquired pneumonia. However he, in spite of his weakness and fatigue, he does not appear to be critically ill with any of these. Plan: CT pulmonary angiogram to look at his chest and look for emboli Depending on these results, this will then lead me to where I am going to change his management (2) Severe protein-calorie malnutrition Conclusion/Plan: He had weight loss even prior to his October surgery. Since the surgery he has gained some weight with TPN at the [facility] [place]. Since coming back to [place] his weight has been maintained but not improved. He is not really gained back all the weight he lost prior to surgery. Plan: Nutrition service consult TPN Patient verbalizes understanding of the importance of nutrition. He knows that his Luca patch and ulcer will not heal if he does not get enough protein. (3) Anemia Conclusion/Plan: Anemia panel for the morning. He came in anemic and I am assuming that most of his anemia is most likely nutritional deficiencies. Since his surgery (with minimal blood loss) he has had an acute anemia that is not completely explained. Has required 2 units of blood. Plan: Anemia panel Getting vitamins and minerals in his TPN Qualifiers: Anemia type: unspecified type Qualified Code(s): D64.9 - Anemia, unspecified (4) Perforated abdominal viscus Conclusion/Plan: Postoperative day #6 for exploratory laparotomy with Luca patch of ruptured duodenal ulcer DVT prophylaxis ongoing with Lovenox Nutritional support ongoing Management per general surgery (5) Post-operative pain Conclusion/Plan: While Dr. Franklin's concern was the new abnormal chest x-ray and cough, the patient's concern is that he gets his Dilaudid every 2 hours without fail. He was annoyed that the nurses were not doing that last night. I saw the patient over several encounters this evening, and he has been comfortable, without grimacing, able to get up and go to the bathroom on his own, but nevertheless was very insistent on Dilaudid every 2 hours. He even admits that he is upgrad ing his pain status to make sure "he does not get behind on his pain meds". Plan: Leave at surgical service discretion. But would recommend decreasing Dilaudid dose. - Lab Results Lab results reviewed: Yes Fish Bones: 05/27/21 04:47 05/27/21 04:47
--- NOTE | 2021-05-28 00:07 | CT Report ---
PROCEDURE: ANGIO CHEST W/WO INDICATIONS: new mult opacities post op CONTRAST: IV CONTRAST: Optiray 320 ml: 80 PO CONTRAST: *NO PO CONTRAST TECHNIQUE: After the administration of intravenous contrast, 2 mm axial images were acquired from the pulmonary apices to the posterior costophrenic angles during the arterial phase. In addition, 1 mm lung kernel and 5 mm soft tissue kernel reconstructions were performed. 3-dimensional coronal oblique maximum int ensity projection (MIP) reformats, 8 mm axial MIP, and 5 mm coronal and sagittal MPR reformats were t hen performed through the thorax. For radiation dose reduction, the following was used: automated exp osure control, adjustment of mA and/or kV according to patient size. COMPARISON: CXR earlier today. CT abdomen pelvis 05/22/2021. FINDINGS: Image quality: Excellent. Pulmonary arteries: Pulmonary arteries are normal in size, and demonstrate no intraluminal filling d efects to suggest central pulmonary embolism. Lungs and pleura: Small consolidation at the left lung base which is new compared to 05/22/2021. Small left pleural effusion, new. Trace right pleural effusion. No pneumothorax. Airways are clear. Calcif ied granuloma. Small pulmonary cysts. Mediastinum: Left-sided PICC with the tip at the confluence with the upper SVC. Heart size is normal , with small pericardial effusion is increased. No mediastinal or hilar adenopathy. Thoracic aorta is normal in caliber and enhancement. Esophagus is normal in caliber, without hiatal hernia. Enteric tube coursing into the distal stomach. There is a surgical drain in the left upper quadrant with the tip in the mid upper abdomen. Ventral abdominal wall staple line. Bones and chest wall: No suspicious bony lesions. Severe left shoulder DJD. Ribs and thoracic spine appear intact throughout. No axillary or supraclavicular adenopathy. The thyroid is normal in size and there are no incidental findings. Abdomen: Left mid abdomen retroperitoneal mass. Pneumoperitoneum is decreased. Small volume of fluid adjacent to the spleen is similar the prior exam. IMPRESSION: 1. No pulmonary embolism. 2. New small consolidation at the left lung base. Favor compressive atelectasis over pneumonia. 3. New small left pleural effusion. Trace right pleural effusion. Small pericardial effusion, increas ed. 4. Left PICC at the SVC confluence. Enteric tube in the distal stomach. 5. Retroperitoneal mass. Surgical drain in the upper abdomen. Decreased pneumoperitoneum. Small volum e of fluid adjacent to the spleen is unchanged. Reviewed by: Deonte Wan MD on 05/28/2021 12:05 AM PDT Approved by: Deonte Wan MD on 05/28/2021 12:05 AM PDT Station ID: [id number]
[2021-05-28] MEDS: HYDROmorphone 0.5 MG/0.5 ML SYRINGE IVP PRN ×5 (01:20→20:14)
[2021-05-28] MEDS: ACETAMINOPHEN 1,000 MG/100 ML 100 ML IV SCH ×3 (01:20→11:33)
[2021-05-28] MEDS: SODIUM CHLORIDE FLUSH 0.9% 10 ML SYRINGE IVP SCH ×4 (01:20→23:03)
[2021-05-28 05:10] LABS: ABSOLUTE RETICS # AUTO 0.019 10^6/uL (0.020-0.110); RED BLOOD COUNT 2.86 10^6/uL (4.70-6.10); RETICULOCYTE COUNT % (AUTO) 0.68 % (0.5-2.3)
[2021-05-28 05:30] LABS: IRON 6 ug/dL (45-182); TRANSFERRIN < 70 mg/dL (180-329)
[2021-05-28 05:37] LABS: FERRITIN 332.3 ng/mL (23.9-336.2)
[2021-05-28] MEDS: PANTOPRAZOLE 40 MG VIAL IVP SCH (06:40)
[2021-05-28] MEDS: SODIUM CHLORIDE FLUSH 0.9% 10 ML SYRINGE IVP PRN ×2 (06:40→20:15)
[2021-05-28] MEDS: metroNIDAZOLE 500 MG/100 ML 500 MG/100 ML BAG IV SCH ×3 (06:57→23:02)
[2021-05-28] MEDS: FLUCONAZOLE 200 MG/100 ML 100 ML IV SCH (09:33)
[2021-05-28] MEDS: ENOXAPARIN 40 MG/0.4 ML SYRINGE SUBQ SCH (09:33)
[2021-05-28] MEDS: CEFEPIME 2 GM in SODIUM CHLORIDE 0.9% MINIBAG 100 ML IV SCH ×2 (09:34→22:03)
--- NOTE | 2021-05-28 11:03 | PROVIDER PROGRESS NOTE ---
Assessment/Plan - Problem List (1) Abnormal chest xray Assessment/Plan: Chest x-ray favored atelectasis over pneumonia. He is afebrile and white blood cell count is 12. Patient has been encouraged to use his incentive spirometer often. (2) Anemia Qualifiers: Anemia type: unspecified type Qualified Code(s): D64.9 - Anemia, unspecified Assessment/Plan: Patient was anemic upon presentation and was transfused 2 units of packed red blood cells. Hemoglobin remained stable today at 7.8. We will continue to monitor. (3) Perforated abdominal viscus Assessment/Plan: Postoperative day #7 for exploratory laparotomy with Luca patch of ruptured duodenal ulcer. Patient is receiving TPN. Nutrition following. Pain management as needed with Dilaudid and Tylenol. Patient reported a bowel movement last night. Patient has been encouraged to ambulate. He is on cefepime and Flagyl. General surgery primary. (4) Post-operative pain Assessment/Plan: Dilaudid every 4 hours as needed. Tylenol ordered. (5) Severe protein-calorie malnutrition Assessment/Plan: On TPN. Nutrition following. - Current Meds Current Meds: Current Medications Generic Name Dose Route Start Last Admin Trade Name Freq PRN Reason Stop Dose Admin Enoxaparin Sodium 40 mg 05/24/21 09:00 05/28/21 09:33 Enoxaparin 40 Mg/0.4 Ml Syringe SUBQ 40 mg DAILY MICHELLE Administration Fluconazole 100 mls @ 100 mls/hr 05/23/21 09:00 05/28/21 09:33 Diflucan 200 Mg/100 Ml IV 100 mls/hr DAILY MICHELLE Administration Acetaminophen 100 mls @ 400 mls/hr 05/23/21 12:20 05/28/21 06:56 Ofirmev IV Infused Q6HR MICHELLE Infusion Multivitamins 10 ml/ TRACE 2,011 mls @ 75 mls/hr 05/24/21 19:00 05/27/21 22:57 ELEMENTS 1 ml/ Amino Ac/ IV 0 mls/hr Electrol/Dextrose/Calcium TPN/PPN MICHELLE Infusion Fat Emulsion Intravenous 250 mls @ 21 mls/hr 05/24/21 19:00 05/27/21 22:57 Intralipid 20% IV 0 mls/hr 1900 MICHELLE Infusion Sodium Chloride 1,000 mls @ 25 mls/hr 05/24/21 19:00 05/27/21 06:37 Normal Saline 0.9% IV 25 mls/hr .Q40H MICHELLE Administration Cefepime HCl 2 gm/ Sodium 100 mls @ 200 mls/hr 05/26/21 10:00 05/28/21 09:34 Chloride IV 200 mls/hr Q12H MICHELLE Administration Metronidazole 500 mg in 100 mls @ 100 mls/hr 05/26/21 22:00 05/28/21 06:57 Flagyl 500 Mg/100 Ml IV 100 mls/hr Q8H MICHELLE Administration Pantoprazole Sodium 40 mg 05/23/21 07:00 05/28/21 06:40 Pantoprazole 40 Mg Vial IVP 40 mg QDAC MICHELLE Administration Phenol/Menthol 1 sprays 05/23/21 00:41 05/25/21 08:12 Phenol Throat [place] 177 Ml MM 1 sprays Q2HR PRN Administration Throat Pain Sodium Chloride 10 ml 05/23/21 01:00 05/28/21 09:36 Sodium Chloride Flush 0.9% 10 Ml Syringe IVP 10 ml 0100,0900,1700 MICHELLE Administration Sodium Chloride 10 ml 05/23/21 00:41 05/28/21 06:40 Sodium Chloride Flush 0.9% 10 Ml Syringe IVP 50 ml PRN PRN Administration NEEDED PER PROVIDER ORDERS Sodium Chloride 20 ml 05/24/21 20:44 05/26/21 04:36 Sodium Chloride Flush 0.9% 10 Ml Syringe IVP 20 ml PRN PRN Administration After Blood Draw Sodium Chloride 2 sprays 05/26/21 21:04 05/26/21 22:17 Sodium Chloride 0.65% Nasal [place] JOSEFINA 1 spray Q4HR PRN Administration Nasal Congestion Throat Lozenges 1 lozenge 05/24/21 19:51 05/25/21 10:45 Benzocaine/Menthol Lozenge MM 1 lozenge Q2HR PRN Administration Throat pain - Lab Result Fish Bone Diagrams: 05/28/21 11:50 05/28/21 11:50 - Additional Planning My Orders: My Active Orders 05/28/21 11:02 BMP - BASIC METABOLIC PANEL [CHEM] Routine CBC - COMP BLD CT W/AUTO DIFF [HEME] Routine 05/29/21 05:00 BMP - BASIC METABOLIC PANEL [CHEM] DAILYLAB CBC - COMP BLD CT W/AUTO DIFF [HEME] DAILYLAB 05/30/21 05:00 BMP - BASIC METABOLIC PANEL [CHEM] DAILYLAB CBC - COMP BLD CT W/AUTO DIFF [HEME] DAILYLAB 05/31/21 05:00 BMP - BASIC METABOLIC PANEL [CHEM] DAILYLAB CBC - COMP BLD CT W/AUTO DIFF [HEME] DAILYLAB 06/01/21 05:00 BMP - BASIC METABOLIC PANEL [CHEM] DAILYLAB CBC - COMP BLD CT W/AUTO DIFF [HEME] DAILYLAB 06/02/21 05:00 BMP - BASIC METABOLIC PANEL [CHEM] DAILYLAB CBC - COMP BLD CT W/AUTO DIFF [HEME] DAILYLAB Subjective - Subjective Patient Reports: Other (Resting comfortably in bed. Rates pain 11/04. Reports feeling better today compared to yesterday. Reports a bowel movement last night. NG tube in place. Mild drainage. Percutaneous tube in place. Minimal drainage.) Objective Vital Signs: Vital Signs - 24 hr 05/27/21 05/27/21 05/28/21 11:27 18:05 01:19 Temperature 37 C 36.4 C L 36.6 C Heart Rate [ 69 86 Brachial] Heart Rate [ 72 Monitoring electrodes] Respiratory 16 24 22 Rate Blood Pressure 122/57 L 116/59 L 147/67 H [Right Brachial artery] O2 Saturation 94 98 100 05/28/21 05/28/21 07:02 07:53 Temperature 36.6 C Heart Rate [ 65 Brachial] Heart Rate [ Monitoring electrodes] Respiratory 18 Rate Blood Pressure 133/69 H [Right Brachial artery] O2 Saturation 99 100 Oxygen O2 Source Room air I&O (Last 24 Hrs): Intake and Output Totals x24h 05/26/21 05/27/21 05/28/21 23:59 23:59 23:59 Intake Total 3626.200 3645.85 260 Output Total 1768 1725 1310 Balance 0815.007 4418.85 -1050 General: Alert, Oriented x3, Mild distress HEENT: PERRLA, EOMI Neck: Supple, No JVD Neuro: Alert, Non Focal, Oriented Times 3 Cardiovascular: Regular rate Respiratory: Chest non-tender, No respiratory distress, Breath sounds nml Abdomen: Normal bowel sounds, Soft, Other (Mild abdominal tenderness at surgical site.) Extremities: No clubbing, No cyanosis, No edema, No tenderness/swelling Skin: No rashes, No breakdown, No significant lesion - Results Results: Laboratory Results WBC 11.3 x10^3/uL (4.8-10.8) H 05/27/21 04:47 RBC 2.86 10^6/uL (4.70-6.10) L 05/28/21 04:29 Hgb 7.7 g/dL (14.0-18.0) L 05/27/21 04:47 Hct 26.0 % (42.0-52.0) L 05/27/21 04:47 MCV 93.2 fL (80.0-94.0) 05/27/21 04:47 MCH 27.6 pg (27.0-31.0) 05/27/21 04:47 MCHC 29.6 g/dL (32.0-36.0) L 05/27/21 04:47 RDW 15.5 % (12.0-15.0) H 05/27/21 04:47 Plt Count 285 10^3/uL (130-450) 05/27/21 04:47 MPV 8.9 fL (7.4-11.4) 05/27/21 04:47 Reticulocyte % (Auto) 0.68 % (0.5-2.3) 05/28/21 04:29 Neut # (Auto) 10.3 10^3/uL (1.5-6.6) H 05/27/21 04:47 Lymph # (Auto) 0.4 10^3/uL (1.5-3.5) L 05/27/21 04:47 [place] # (Auto) 0.2 10^3/uL (0.0-1.0) 05/27/21 04:47 Eos # (Auto) 0.4 10^3/uL (0.0-0.7) 05/27/21 04:47 Baso # (Auto) 0.1 10^3/uL (0.0-0.1) 05/27/21 04:47 Absolute Nucleated RBC 0.00 x10^3/uL 05/27/21 04:47 Total Counted 100 05/23/21 04:13 Band Neuts % (Manual) 0 % (0-10) 05/23/21 04:13 Abnorm Lymph % (Manual) 0 % 05/23/21 04:13 Nucleated RBC % 0.0 /100WBC 05/27/21 04:47 Neutrophils # (Manual) 18.7 10^3/uL (1.5-6.6) H 05/23/21 04:13 Lymphocytes # (Manual) 0.8 10^3/uL (1.5-3.5) L 05/23/21 04:13 Monocytes # (Manual) 0.4 10^3/uL (0.0-1.0) 05/23/21 04:13 Eosinophils # (Manual) 0.0 10^3/uL (0-0.7) 05/23/21 04:13 Basophils # (Manual) 0.0 10^3/uL (0-0.1) 05/23/21 04:13 Differential Comment MANUAL DIFFERENTIAL 05/23/21 04:13 WBC Morphology NORMAL APPEARANCE (NORMAL) 05/23/21 04:13 Platelet Estimate NORMAL (130-450,000) (NORMAL) 05/23/21 04:13 Platelet Morphology NORMAL APPEARANCE (NORMAL) 05/23/21 04:13 RBC Morph Micro Appear 1+ HYPOCHROMASIA (NORMAL) 05/23/21 04:13 Absolute Retic 0.019 10^6/uL (0.020-0.110) L 05/28/21 04:29 Sodium 135 mmol/L (135-145) 05/27/21 04:47 Potassium 3.8 mmol/L (3.5-5.0) 05/27/21 04:47 Chloride 102 mmol/L (101-111) 05/27/21 04:47 Carbon Dioxide 26 mmol/L (21-32) 05/27/21 04:47 Anion Gap 7.0 (6-13) 05/27/21 04:47 BUN 19 mg/dL (6-20) 05/27/21 04:47 Creatinine 0.6 mg/dL (0.6-1.2) 05/27/21 04:47 Estimated GFR (MDRD) 132 (>89) 05/27/21 04:47 Glucose 118 mg/dL (70-100) H 05/27/21 04:47 POC Whole Bld Glucose 125 mg/dL (70 - 100) H 05/28/21 05:20 Lactic Acid 1.9 mmol/L (0.5-2.2) 05/22/21 20:57 Calcium 7.7 mg/dL (8.5-10.3) L 05/27/21 04:47 Phosphorus 2.6 mg/dL (2.5-4.6) 05/27/21 04:47 Magnesium 1.9 mg/dL (1.7-2.8) 05/27/21 04:47 Iron 6 ug/dL (45-182) L 05/28/21 04:29 TIBC 98 ug/dL (250-450) L 05/24/21 05:02 % Saturation 9 % (20-50) L 05/24/21 05:02 Transferrin < 70 mg/dL (180-329) L 05/28/21 04:29 Transferrin < 70 mg/dL (180-329) L 05/28/21 04:29 Ferritin 332.3 ng/mL (23.9-336.2) 05/28/21 04:29 Total Bilirubin 0.9 mg/dL (0.2-1.0) 05/27/21 04:47 AST 10 IU/L (10-42) 05/27/21 04:47 ALT 10 IU/L (10-60) 05/27/21 04:47 Alkaline Phosphatase 76 IU/L (42-121) 05/27/21 04:47 Lactate Dehydrogenase 84 IU/L (91-225) L 05/28/21 04:29 Troponin I High Sens 4.4 ng/L (2.3-19.7) 05/22/21 20:18 Total Protein 5.1 g/dL (6.7-8.2) L 05/27/21 04:47 Albumin 1.7 g/dL (3.2-5.5) L 05/27/21 04:47 Globulin 3.4 g/dL (2.1-4.2) 05/27/21 04:47 Albumin/Globulin Ratio 0.5 (1.0-2.2) L 05/27/21 04:47 Prealbumin 3 mg/dL (18-45) L 05/27/21 04:47 Triglycerides 106 mg/dL (-149) 05/27/21 04:47 Lipase 18 U/L (22-51) L 05/22/21 20:18 Vitamin B12 1247 pg/mL (180-914) H 05/28/21 04:29 Folate 12.13 ng/mL (5.90 - >24.8) 05/24/21 05:02 Nasal Adenovirus (PCR) NOT DETECTED 05/27/21 22:10 Nasal B. parapertussis DNA (PCR) NOT DETECTED 05/27/21 22:10 Nasal Coronavir 229E PCR NOT DETECTED 05/27/21 22:10 Nasal Coronavir HKU1 PCR NOT DETECTED 05/27/21 22:10 Nasal Coronavir NL63 PCR NOT DETECTED 05/27/21 22:10 Nasal Coronavir OC43 PCR NOT DETECTED 05/27/21 22:10 Nasal Enterovir/Rhinovir PCR NOT DETECTED 05/27/21 22:10 Nasal Influenza B PCR NOT DETECTED 05/27/21 22:10 Nasal Influenza A PCR NOT DETECTED 05/27/21 22:10 Nasal Parainfluen 1 PCR NOT DETECTED 05/27/21 22:10 Nasal Parainfluen 2 PCR NOT DETECTED 05/27/21 22:10 Nasal Parainfluen 3 PCR NOT DETECTED 05/27/21 22:10 Nasal Parainfluen 4 PCR NOT DETECTED 05/27/21 22:10 Nasal RSV (PCR) NOT DETECTED 05/27/21 22:10 Nasal Screen MRSA (PCR) NEGATIVE (NEGATIVE) 05/23/21 02:00 Nasal B.pertussis DNA PCR NOT DETECTED 05/27/21 22:10 Nasal C.pneumoniae (PCR) NOT DETECTED 05/27/21 22:10 Josefina Human Metapneumo PCR NOT DETECTED 05/27/21 22:10 Nasal M.pneumoniae (PCR) NOT DETECTED 05/27/21 22:10 Nasal SARS-CoV-2 (PCR) NOT DETECTED 05/27/21 22:10 Blood Type O POSITIVE 05/22/21 22:32 Blood Type Recheck O POSITIVE 05/22/21 20:18 Antibody Screen NEGATIVE 05/22/21 22:32 Crossmatch IS Only See Detail 05/22/21 22:32 ABX Reporting Has patient been on IV antibiotics over the past 48 hours?: Yes
[2021-05-28 11:57] LABS: BASOPHILS % (AUTO) 0.2 %; EOSINOPHILS # (AUTO) 0.5 10^3/uL (0.0-0.7); EOSINOPHILS % (AUTO) 4.2 %; HCT - HEMATOCRIT 26.3 % (42.0-52.0); HGB - HEMOGLOBIN 7.8 g/dL (14.0-18.0); LYMPHOCYTES # (AUTO) 0.7 10^3/uL (1.5-3.5); MEAN CORPUSCULAR HEMOGLOBIN 27.6 pg (27.0-31.0); MEAN CORPUSCULAR HGB CONC 29.7 g/dL (32.0-36.0); MEAN CORPUSCULAR VOLUME 92.9 fL (80.0-94.0); MEAN PLATELET VOLUME 8.8 fL (7.4-11.4); MONOCYTES # (AUTO) 0.4 10^3/uL (0.0-1.0); MONOCYTES % (AUTO) 3.5 %; NEUTROPHILS # (AUTO) 10.4 10^3/uL (1.5-6.6); NEUTROPHILS % (AUTO) 85.1 %; PLT - PLATELET COUNT 261 10^3/uL (130-450); RED BLOOD COUNT 2.83 10^6/uL (4.70-6.10); RED CELL DISTRIBUTION WIDTH 15.4 % (12.0-15.0); WHITE BLOOD COUNT 12.2 x10^3/uL (4.8-10.8)
[2021-05-28 12:19] LABS: CALCIUM 8.1 mg/dL (8.5-10.3); CREATININE 0.6 mg/dL (0.6-1.2); POTASSIUM 3.8 mmol/L (3.5-5.0)
--- NOTE | 2021-05-28 13:14 | CT Report ---
PROCEDURE: Abdomen/Pelvis WO INDICATIONS: Evaluate for leak after perforated gastric ulcer TECHNIQUE: Noncontrast 5 mm thick sections acquired from the diaphragms to the symphysis. 5 mm coronal and sagi ttal reformats were then performed. For radiation dose reduction, the following was used: automated exposure control, adjustment of mA and/or kV according to patient size. It is noted that there is co ntrast within the renal collecting system as well as the bladder likely related to previous contrast injection for CT angiogram chest. COMPARISON: CT angioma chest 05/27/2021, CT abdomen pelvis 05/22/2021 FINDINGS: Image quality: There is limited visualization of the pelvis secondary to artifact from hip arthropla sty. ABDOMEN: Lung bases: There has been interval development of a mild left pleural effusion with superimposed con solidation. Heart size is mildly enlarged with pericardial effusion measuring 1.5 cm in AP dimension compared to 1.0 cm on prior exam. Solid organs: Liver and spleen are normal in size. Gallbladder is unremarkable Pancreas is normal in contours. No adrenal nodules. Kidneys are normal in size, without hydronephrosis or nephrolithia sis. Peritoneum and bowel: Unenhanced bowel loops demonstrate normal wall thickness and caliber. There is no definitively identified organized fluid collection within the region of the stomach. However, the re is ill-defined soft tissue density within this region other less prominent when compared to prior exam. Examination is severely limited with lack of both oral and IV contrast. In comparison to CT nessa st exam with contrast of this region, overall appearance of soft tissue density and fluid within this region is decreased compared to 05/22/2021. Nasogastric tube is present stomach. There is anterior abdominal drain. Nodes and vessels: Confluent retroperitoneal mass is again noted and unchanged. Aorta and inferior ve na cava are normal in caliber. Miscellaneous: Trace fat-containing ventral hernia. PELVIS: Genitourinary: Bladder wall thickness is normal. Miscellaneous: No inguinal hernias or adenopathy. Bones: No suspicious bony lesions. No vertebral body compression fractures. IMPRESSION: 1. Left effusion with superimposed consolidation, with the latter likely representing atelectasis. Ho wever, pneumonia cannot be excluded. 2. Limited evaluation secondary to lack of oral and IV contrast. There is a persistent. Soft tissue d ensity anterior to the stomach suspected to be related to site of previous pathology. No discrete org anized fluid collection is identified. Area of overall soft tissue density, is poorly characterized s econdary to lack of contrast. However, it is felt to be decreased in prominence compared to 05/22/2021 . 3. Unchanged retroperitoneal mass. Reviewed by: Paris Pool MD on 05/28/2021 1:12 PM PDT Approved by: Paris Pool MD on 05/28/2021 1:12 PM PDT Station ID: [id number]
[2021-05-28] MEDS ORDERED: HYDROcodone/ACETAM 7.5 MG/325 MG 15 ML UDC PO PRN (15:24)
--- NOTE | 2021-05-28 16:15 | PROVIDER PROGRESS NOTE ---
Subjective - General Admit Date: 05/23/21 Procedure Date: 05/23/21 Post Op Days: 5 Procedure Performed: Ex lap with repair of gastric ulcer - Review of Systems Wound/Incisions: positive: Healing well, No drainage. negative: Erythema Drain Type: serous General: positive: Fatigue HEENT: positive: No symptoms Pulmonary: positive: No symptoms Cardiovascular: positive: No symptoms Gastrointestinal: positive: Abdominal pain. negative: Nausea, Vomiting Genitourinary: positive: No symptoms Musculoskeletal: positive: No symptoms - Other Other Information/Narrative: Cough is improved and Art reports he slept better last night.Still sleeping a lot. Pain seems to be a little better controlled. Very much appreciate the help of the medicine service.CT scan of the abdomen and pelvis today does not show any evidence of a leak.It is a limited study because there was no oral contrast. Objective - Patient Data Reviewed Vital Signs: Yes Vital Signs: Vital Signs Temp 36.6 C 05/28/21 07:53 Pulse 65 05/28/21 07:53 Resp 18 05/28/21 07:53 BP 133/69 H 05/28/21 07:53 Pulse Ox 100 05/28/21 07:53 Intake & Output 05/27/21 05/28/21 05/28/21 23:59 11:59 23:59 Intake Total 2804.50 360 Output Total 1160 1310 50 Balance 1644.50 -950 -50 Intake: Intake, IV Amount 2634.50 330 Acetaminophen 1,000 mg/ 100 200 100 ml 100 ml @ 400 mls/ hr IV Q6HR [facility] Rx#: [id number] Cefepime 2 gm In Sodium 200 Chloride 0.9% Minibag 100 ml @ 200 mls/hr IV Q12H [facility] Rx#:[id number] Fat Emulsion 20% 250 ml @ 68.25 21 mls/hr IV 1900 MICHELLE Rx #:[id number] TPN (Clinimix E 01/09) 2, 6.25 000 ml @ 83 mls/hr IV TPN /PPN [facility] with Multivitamin 10 ml with Trace Elements 1 ml Rx#: [id number] metroNIDAZOLE 500 MG/100 170 130 ML 500 mg In 100 ml @ 100 mls/hr IV Q8H MICHELLE Rx#: [id number] Oral 150 Other 20 30 Right nare 20 30 Output: Gastric Drainage 350 Drainage 10 835 50 Left Lower Anterior 10 35 ng 800 50 Urine 800 475 Other: # Voids 2 1 Weight: Weight 05/26/21 05/27/21 05/28/21 23:59 23:59 23:59 Weight (kg) 83.5 kg 87 kg 84 kg Intake & Output: Intake and Output Totals x24h 05/26/21 05/27/21 05/28/21 23:59 23:59 23:59 Intake Total 3626.200 3645.85 360 Output Total 1768 1725 1360 Balance 5206.961 4729.85 -1000 - Lab Results Lab Results: 05/28/21 11:50 05/28/21 11:50 Other Lab Results: Lab Results x24hrs 05/28/21 05/28/21 05/28/21 Range/Units 11:50 11:50 11:18 WBC 12.2 H (4.8-10.8) x10^3/uL RBC 2.83 L (4.70-6.10) 10^6/uL Hgb 7.8 L (14.0-18.0) g/dL Hct 26.3 L (42.0-52.0) % MCV 92.9 (80.0-94.0) fL MCH 27.6 (27.0-31.0) pg MCHC 29.7 L (32.0-36.0) g/dL RDW 15.4 H (12.0-15.0) % Plt Count 261 (130-450) 10^3/uL MPV 8.8 (7.4-11.4) fL Reticulocyte % (Auto) (0.5-2.3) % Neut # (Auto) 10.4 H (1.5-6.6) 10^3/uL Lymph # (Auto) 0.7 L (1.5-3.5) 10^3/uL Gallia # (Auto) 0.4 (0.0-1.0) 10^3/uL Eos # (Auto) 0.5 (0.0-0.7) 10^3/uL Baso # (Auto) 0.0 (0.0-0.1) 10^3/uL Absolute Nucleated RBC 0.00 x10^3/uL Nucleated RBC % 0.0 /100WBC Absolute Retic (0.020-0.110) 10^6/uL Sodium 138 (135-145) mmol/L Potassium 3.8 (3.5-5.0) mmol/L Chloride 106 (101-111) mmol/L Carbon Dioxide 26 (21-32) mmol/L Anion Gap 6.0 (6-13) BUN 18 (6-20) mg/dL Creatinine 0.6 (0.6-1.2) mg/dL Estimated GFR (MDRD) 132 (>89) Glucose 125 H (70-100) mg/dL POC Whole Bld Glucose 100 (70 - 100) mg/dL Calcium 8.1 L (8.5-10.3) mg/dL Iron (45-182) ug/dL Transferrin (180-329) mg/dL Ferritin (23.9-336.2) ng/mL Lactate Dehydrogenase (91-225) IU/L Vitamin B12 (180-914) pg/mL Nasal Adenovirus (PCR) Nasal B. parapertussis DNA (PCR) Nasal Coronavir 229E PCR Nasal Coronavir HKU1 PCR Nasal Coronavir NL63 PCR Nasal Coronavir OC43 PCR Nasal Enterovir/Rhinovir PCR Nasal Influenza B PCR Nasal Influenza A PCR Nasal Parainfluen 1 PCR Nasal Parainfluen 2 PCR Nasal Parainfluen 3 PCR Nasal Parainfluen 4 PCR Nasal RSV (PCR) Nasal B.pertussis DNA PCR Nasal C.pneumoniae (PCR) Josefina Human Metapneumo PCR Nasal M.pneumoniae (PCR) Nasal SARS-CoV-2 (PCR) 05/28/21 05/28/21 05/28/21 Range/Units 05:20 04:29 04:29 WBC (4.8-10.8) x10^3/uL RBC 2.86 L (4.70-6.10) 10^6/uL Hgb (14.0-18.0) g/dL Hct (42.0-52.0) % MCV (80.0-94.0) fL MCH (27.0-31.0) pg MCHC (32.0-36.0) g/dL RDW (12.0-15.0) % Plt Count (130-450) 10^3/uL MPV (7.4-11.4) fL Reticulocyte % (Auto) 0.68 (0.5-2.3) % Neut # (Auto) (1.5-6.6) 10^3/uL Lymph # (Auto) (1.5-3.5) 10^3/uL Gallia # (Auto) (0.0-1.0) 10^3/uL Eos # (Auto) (0.0-0.7) 10^3/uL Baso # (Auto) (0.0-0.1) 10^3/uL Absolute Nucleated RBC x10^3/uL Nucleated RBC % /100WBC Absolute Retic 0.019 L (0.020-0.110) 10^6/uL Sodium (135-145) mmol/L Potassium (3.5-5.0) mmol/L Chloride (101-111) mmol/L Carbon Dioxide (21-32) mmol/L Anion Gap (6-13) BUN (6-20) mg/dL Creatinine (0.6-1.2) mg/dL Estimated GFR (MDRD) (>89) Glucose (70-100) mg/dL POC Whole Bld Glucose 125 H (70 - 100) mg/dL Calcium (8.5-10.3) mg/dL Iron (45-182) ug/dL Transferrin < 70 L (180-329) mg/dL Ferritin (23.9-336.2) ng/mL Lactate Dehydrogenase (91-225) IU/L Vitamin B12 (180-914) pg/mL Nasal Adenovirus (PCR) Nasal B. parapertussis DNA (PCR) Nasal Coronavir 229E PCR Nasal Coronavir HKU1 PCR Nasal Coronavir NL63 PCR Nasal Coronavir OC43 PCR Nasal Enterovir/Rhinovir PCR Nasal Influenza B PCR Nasal Influenza A PCR Nasal Parainfluen 1 PCR Nasal Parainfluen 2 PCR Nasal Parainfluen 3 PCR Nasal Parainfluen 4 PCR Nasal RSV (PCR) Nasal B.pertussis DNA PCR Nasal C.pneumoniae (PCR) Josefina Human Metapneumo PCR Nasal M.pneumoniae (PCR) Nasal SARS-CoV-2 (PCR) 05/28/21 05/28/21 05/28/21 Range/Units 04:29 04:29 04:29 WBC (4.8-10.8) x10^3/uL RBC (4.70-6.10) 10^6/uL Hgb (14.0-18.0) g/dL Hct (42.0-52.0) % MCV (80.0-94.0) fL MCH (27.0-31.0) pg MCHC (32.0-36.0) g/dL RDW (12.0-15.0) % Plt Count (130-450) 10^3/uL MPV (7.4-11.4) fL Reticulocyte % (Auto) (0.5-2.3) % Neut # (Auto) (1.5-6.6) 10^3/uL Lymph # (Auto) (1.5-3.5) 10^3/uL Gallia # (Auto) (0.0-1.0) 10^3/uL Eos # (Auto) (0.0-0.7) 10^3/uL Baso # (Auto) (0.0-0.1) 10^3/uL Absolute Nucleated RBC x10^3/uL Nucleated RBC % /100WBC Absolute Retic (0.020-0.110) 10^6/uL Sodium (135-145) mmol/L Potassium (3.5-5.0) mmol/L Chloride (101-111) mmol/L Carbon Dioxide (21-32) mmol/L Anion Gap (6-13) BUN (6-20) mg/dL Creatinine (0.6-1.2) mg/dL Estimated GFR (MDRD) (>89) Glucose (70-100) mg/dL POC Whole Bld Glucose (70 - 100) mg/dL Calcium (8.5-10.3) mg/dL Iron 6 L (45-182) ug/dL Transferrin < 70 L (180-329) mg/dL Ferritin 332.3 (23.9-336.2) ng/mL Lactate Dehydrogenase 84 L (91-225) IU/L Vitamin B12 1247 H (180-914) pg/mL Nasal Adenovirus (PCR) Nasal B. parapertussis DNA (PCR) Nasal Coronavir 229E PCR Nasal Coronavir HKU1 PCR Nasal Coronavir NL63 PCR Nasal Coronavir OC43 PCR Nasal Enterovir/Rhinovir PCR Nasal Influenza B PCR Nasal Influenza A PCR Nasal Parainfluen 1 PCR Nasal Parainfluen 2 PCR Nasal Parainfluen 3 PCR Nasal Parainfluen 4 PCR Nasal RSV (PCR) Nasal B.pertussis DNA PCR Nasal C.pneumoniae (PCR) Josefina Human Metapneumo PCR Nasal M.pneumoniae (PCR) Nasal SARS-CoV-2 (PCR) 05/28/21 05/27/21 05/27/21 Range/Units 00:33 22:10 17:43 WBC (4.8-10.8) x10^3/uL RBC (4.70-6.10) 10^6/uL Hgb (14.0-18.0) g/dL Hct (42.0-52.0) % MCV (80.0-94.0) fL MCH (27.0-31.0) pg MCHC (32.0-36.0) g/dL RDW (12.0-15.0) % Plt Count (130-450) 10^3/uL MPV (7.4-11.4) fL Reticulocyte % (Auto) (0.5-2.3) % Neut # (Auto) (1.5-6.6) 10^3/uL Lymph # (Auto) (1.5-3.5) 10^3/uL Gallia # (Auto) (0.0-1.0) 10^3/uL Eos # (Auto) (0.0-0.7) 10^3/uL Baso # (Auto) (0.0-0.1) 10^3/uL Absolute Nucleated RBC x10^3/uL Nucleated RBC % /100WBC Absolute Retic (0.020-0.110) 10^6/uL Sodium (135-145) mmol/L Potassium (3.5-5.0) mmol/L Chloride (101-111) mmol/L Carbon Dioxide (21-32) mmol/L Anion Gap (6-13) BUN (6-20) mg/dL Creatinine (0.6-1.2) mg/dL Estimated GFR (MDRD) (>89) Glucose (70-100) mg/dL POC Whole Bld Glucose 85 104 H (70 - 100) mg/dL Calcium (8.5-10.3) mg/dL Iron (45-182) ug/dL Transferrin (180-329) mg/dL Ferritin (23.9-336.2) ng/mL Lactate Dehydrogenase (91-225) IU/L Vitamin B12 (180-914) pg/mL Nasal Adenovirus (PCR) NOT DETECTED Nasal B. parapertussis DNA (PCR) NOT DETECTED Nasal Coronavir 229E PCR NOT DETECTED Nasal Coronavir HKU1 PCR NOT DETECTED Nasal Coronavir NL63 PCR NOT DETECTED Nasal Coronavir OC43 PCR NOT DETECTED Nasal Enterovir/Rhinovir PCR NOT DETECTED Nasal Influenza B PCR NOT DETECTED Nasal Influenza A PCR NOT DETECTED Nasal Parainfluen 1 PCR NOT DETECTED Nasal Parainfluen 2 PCR NOT DETECTED Nasal Parainfluen 3 PCR NOT DETECTED Nasal Parainfluen 4 PCR NOT DETECTED Nasal RSV (PCR) NOT DETECTED Nasal B.pertussis DNA PCR NOT DETECTED Nasal C.pneumoniae (PCR) NOT DETECTED Josefina Human Metapneumo PCR NOT DETECTED Nasal M.pneumoniae (PCR) NOT DETECTED Nasal SARS-CoV-2 (PCR) NOT DETECTED - Imaging Results Imaging Results Comments: PT NAME: PATSY NOVA JR MR#: [id number] ADM IN/MS3 AGE: 71 CI DT/TM: 05/28/21 PCP: SONIA LEIVA MD : 1950 ATT: Tom Franklin MD SEX: M ORD: Tom Franklin MD EXAM: [id number] CT/ABPEWO ([id number]) PROCEDURE: Abdomen/Pelvis WO INDICATIONS: Evaluate for leak after perforated gastric ulcer TECHNIQUE: Noncontrast 5 mm thick sections acquired from the diaphragms to the symphysis. 5 mm coronal and sagittal reformats were then performed. For radiation dose reduction, the following was used: automated exposure control, adjustment of mA and/or kV according to patient size. It is noted that there is contrast within the renal collecting system as well as the bladder likely related to previous contrast injection for CT angiogram chest. COMPARISON: CT angioma chest 05/27/2021, CT abdomen pelvis 05/22/2021 FINDINGS: Image quality: There is limited visualization of the pelvis secondary to artifact from hip arthroplasty. ABDOMEN: Lung bases: There has been interval development of a mild left pleural effusion with superimposed consolidation. Heart size is mildly enlarged with pericardial effusion measuring 1.5 cm in AP dimension compared to 1.0 cm on prior exam. Solid organs: Liver and spleen are normal in size. Gallbladder is unremarkable Pancreas is normal in contours. No adrenal nodules. Kidneys are normal in size, without hydronephrosis or nephrolithiasis. Peritoneum and bowel: Unenhanced bowel loops demonstrate normal wall thickness and caliber. There is no definitively identified organized fluid collection within the region of the stomach. However, there is ill-defined soft tissue density within this region other less prominent when compared to prior exam. Examination is severely limited with lack of both oral and IV contrast. In comparison to CT chest exam with contrast of this region, overall appearance of soft tissue density and fluid within this region is decreased compared to 05/22/2021. Nasogastric tube is present stomach. There is anterior abdominal drain. Nodes and vessels: Confluent retroperitoneal mass is again noted and unchanged. Aorta and inferior vena cava are normal in caliber. Miscellaneous: Trace fat-containing ventral hernia. PELVIS: Genitourinary: Bladder wall thickness is normal. Miscellaneous: No inguinal hernias or adenopathy. Bones: No suspicious bony lesions. No vertebral body compression fractures. IMPRESSION: 1. Left effusion with superimposed consolidation, with the latter likely representing atelectasis. However, pneumonia cannot be excluded. 2. Limited evaluation secondary to lack of oral and IV contrast. There is a persistent. Soft tissue density anterior to the stomach suspected to be related to site of previous pathology. No discrete organized fluid collection is identified. Area of overall soft tissue density, is poorly characterized secondary to lack of contrast. However, it is felt to be decreased in prominence compared to 05/22/2021. 3. Unchanged retroperitoneal mass. Reviewed by: Paris Pool MD on 05/28/2021 1:12 PM PDT Approved by: Paris Pool MD on 05/28/2021 1:12 PM PDT - Current Medications Current Medications: Current Medications Generic Name Dose Route Start Last Admin Trade Name Freq PRN Reason Stop Dose Admin Enoxaparin Sodium 40 mg 05/24/21 09:00 05/28/21 09:33 Enoxaparin 40 Mg/0.4 Ml Syringe SUBQ 40 mg DAILY MICHELLE Administration Hydromorphone HCl 0.5 mg 05/28/21 08:20 05/28/21 15:12 Hydromorphone 0.5 Mg/0.5 Ml Syringe IVP 0.5 mg Q4H PRN Administration PAIN Fluconazole 100 mls @ 100 mls/hr 05/23/21 09:00 05/28/21 09:33 Diflucan 200 Mg/100 Ml IV 100 mls/hr DAILY MICHELLE Administration Multivitamins 10 ml/ TRACE 2,011 mls @ 83 mls/hr 05/24/21 19:00 05/27/21 22:57 ELEMENTS 1 ml/ Amino Ac/ IV 0 mls/hr Electrol/Dextrose/Calcium TPN/PPN MICHELLE Infusion Fat Emulsion Intravenous 250 mls @ 21 mls/hr 05/24/21 19:00 05/27/21 22:57 Intralipid 20% IV 0 mls/hr 1900 MICHELLE Infusion Sodium Chloride 1,000 mls @ 25 mls/hr 05/24/21 19:00 05/27/21 06:37 Normal Saline 0.9% IV 25 mls/hr .Q40H MICHELLE Administration Cefepime HCl 2 gm/ Sodium 100 mls @ 200 mls/hr 05/26/21 10:00 05/28/21 09:34 Chloride IV 200 mls/hr Q12H MICHELLE Administration Metronidazole 500 mg in 100 mls @ 100 mls/hr 05/26/21 22:00 05/28/21 14:35 Flagyl 500 Mg/100 Ml IV 100 mls/hr Q8H MICHELLE Administration Pantoprazole Sodium 40 mg 05/23/21 07:00 05/28/21 06:40 Pantoprazole 40 Mg Vial IVP 40 mg QDAC MICHELLE Administration Phenol/Menthol 1 sprays 05/23/21 00:41 05/25/21 08:12 Phenol Throat Silver 177 Ml MM 1 sprays Q2HR PRN Administration Throat Pain Sodium Chloride 10 ml 05/23/21 01:00 05/28/21 09:36 Sodium Chloride Flush 0.9% 10 Ml Syringe IVP 10 ml 0100,0900,1700 MICHELLE Administration Sodium Chloride 10 ml 05/23/21 00:41 05/28/21 06:40 Sodium Chloride Flush 0.9% 10 Ml Syringe IVP 50 ml PRN PRN Administration NEEDED PER PROVIDER ORDERS Sodium Chloride 20 ml 05/24/21 20:44 05/26/21 04:36 Sodium Chloride Flush 0.9% 10 Ml Syringe IVP 20 ml PRN PRN Administration After Blood Draw Sodium Chloride 2 sprays 05/26/21 21:04 05/26/21 22:17 Sodium Chloride 0.65% Nasal Silver JOSEFINA 1 spray Q4HR PRN Administration Nasal Congestion Throat Lozenges 1 lozenge 05/24/21 19:51 05/25/21 10:45 Benzocaine/Menthol Lozenge MM 1 lozenge Q2HR PRN Administration Throat pain - Physical Exam Wound/Incisions: positive: Healing well General Appearance: positive: No acute distress, Lethargic Eyes Bilateral: positive: PERRL, EOMI Neck: positive: Nml inspection Respiratory: positive: No respiratory distress Cardiovascular: positive: Regular rate & rhythm Abdomen: positive: No distention, Tenderness (Mildly distended. Active bowel sounds. Minimal tenderness to palpation. Wound is clean and dry and healing.) ABX Reporting Has patient been on IV antibiotics over the past 48 hours?: Yes Impression/Plan - Problem List Problem List: Perforated gastric ulcer in the setting of a 71-year-old gentleman with chronic malnutrition who had a Billroth I about 4 months ago. There is no new evidence of leaking. He is tolerating his TPN and he says his cough is improved today.We will try brightly colored popsicles leaving the NG tube in place.May consider advancing his diet if he is able to tolerate this and it does not appear in the drain.
[2021-05-28] MEDS: ACETAMINOPHEN 1,000 MG/100 ML 100 ML IV PRN (20:18)
[2021-05-28] MEDS: TPN (CLINIMIX E 5/15) 2,000 ML with MULTIVITAMIN 10 ML, TRACE ELEMENTS 1 ML IV SCH ×3 (20:22)
[2021-05-28] MEDS: FAT EMULSION 20% 250 ML IV SCH (20:22)
[2021-05-28] MEDS: BENZOCAINE/MENTHOL LOZENGE MM PRN ×2 (20:36→23:16)
[2021-05-28] MEDS: SODIUM CHLORIDE 0.9% 1,000 ML IV SCH (23:11)
[2021-05-29] MEDS: BENZOCAINE/MENTHOL LOZENGE MM PRN ×3 (02:41→23:11)
[2021-05-29] MEDS: ACETAMINOPHEN 1,000 MG/100 ML 100 ML IV PRN ×3 (02:41→19:59)
[2021-05-29] MEDS: SODIUM CHLORIDE FLUSH 0.9% 10 ML SYRINGE IVP SCH ×4 (02:42→20:04)
[2021-05-29] MEDS: HYDROmorphone 0.5 MG/0.5 ML SYRINGE IVP PRN ×6 (02:42→23:53)
[2021-05-29] MEDS: metroNIDAZOLE 500 MG/100 ML 500 MG/100 ML BAG IV SCH ×3 (05:30→23:02)
[2021-05-29] MEDS: PANTOPRAZOLE 40 MG VIAL IVP SCH (06:33)
[2021-05-29 07:19] LABS: BASOPHILS % (AUTO) 0.3 %; EOSINOPHILS # (AUTO) 0.6 10^3/uL (0.0-0.7); EOSINOPHILS % (AUTO) 5.4 %; HCT - HEMATOCRIT 25.2 % (42.0-52.0); HGB - HEMOGLOBIN 7.5 g/dL (14.0-18.0); LYMPHOCYTES # (AUTO) 0.9 10^3/uL (1.5-3.5); LYMPHOCYTES % (AUTO) 8.3 %; MEAN CORPUSCULAR HEMOGLOBIN 27.3 pg (27.0-31.0); MEAN CORPUSCULAR HGB CONC 29.8 g/dL (32.0-36.0); MEAN CORPUSCULAR VOLUME 91.6 fL (80.0-94.0); MEAN PLATELET VOLUME 9.2 fL (7.4-11.4); MONOCYTES # (AUTO) 0.5 10^3/uL (0.0-1.0); MONOCYTES % (AUTO) 4.4 %; NEUTROPHILS # (AUTO) 8.8 10^3/uL (1.5-6.6); NEUTROPHILS % (AUTO) 79.9 %; PLT - PLATELET COUNT 285 10^3/uL (130-450); RED BLOOD COUNT 2.75 10^6/uL (4.70-6.10); RED CELL DISTRIBUTION WIDTH 15.4 % (12.0-15.0)
[2021-05-29 07:32] LABS: ALBUMIN 1.7 g/dL (3.2-5.5); ALBUMIN/GLOBULIN RATIO 0.5 (1.0-2.2); BILIRUBIN,TOTAL 0.5 mg/dL (0.2-1.0); CALCIUM 7.8 mg/dL (8.5-10.3); CREATININE 0.4 mg/dL (0.6-1.2); MAGNESIUM 1.8 mg/dL (1.7-2.8); PHOSPHORUS 2.3 mg/dL (2.5-4.6); POTASSIUM 3.6 mmol/L (3.5-5.0); TOTAL PROTEIN 5.1 g/dL (6.7-8.2)
--- NOTE | 2021-05-29 07:42 | PROVIDER PROGRESS NOTE ---
Assessment/Plan - Problem List (1) Abnormal chest xray Assessment/Plan: Chest x-ray favored atelectasis over pneumonia. He is afebrile and white blood cell count is 11. Patient has been encouraged to use his incentive spirometer often. (2) Anemia Qualifiers: Anemia type: unspecified type Qualified Code(s): D64.9 - Anemia, unspecified Assessment/Plan: Patient was anemic upon presentation and was transfused 2 units of packed red blood cells. Hemoglobin remained stable today at 7.5. We will continue to monitor. He would needs oral supplemental iron upon discharge and once he is adequately from current surgery (3) Perforated abdominal viscus Assessment/Plan: Postoperative day #7 for exploratory laparotomy with Luca patch of ruptured duodenal ulcer. Patient is receiving TPN. Nutrition following. Pain management as needed with Dilaudid and Tylenol. Plan for NG tube to be removed today Patient reported a bowel movement last night. Patient has been encouraged to ambulate. He is on cefepime and Flagyl. General surgery primary. (4) Post-operative pain Assessment/Plan: Dilaudid every 4 hours as needed. Tylenol ordered. (5) Severe protein-calorie malnutrition Assessment/Plan: On TPN. Nutrition following. - Current Meds Current Meds: Current Medications Generic Name Dose Route Start Last Admin Trade Name Freq PRN Reason Stop Dose Admin Enoxaparin Sodium 40 mg 05/24/21 09:00 05/28/21 09:33 Enoxaparin 40 Mg/0.4 Ml Syringe SUBQ 40 mg DAILY MICHELLE Administration Hydromorphone HCl 0.5 mg 05/28/21 08:20 05/29/21 06:38 Hydromorphone 0.5 Mg/0.5 Ml Syringe IVP 0.5 mg Q4H PRN Administration PAIN Fluconazole 100 mls @ 100 mls/hr 05/23/21 09:00 05/28/21 10:33 Diflucan 200 Mg/100 Ml IV Infused DAILY MICHELLE Infusion Multivitamins 10 ml/ TRACE 2,011 mls @ 83 mls/hr 05/24/21 19:00 05/28/21 20:22 ELEMENTS 1 ml/ Amino Ac/ IV 75 mls/hr Electrol/Dextrose/Calcium TPN/PPN MICHELLE Administration Fat Emulsion Intravenous 250 mls @ 21 mls/hr 05/24/21 19:00 05/28/21 20:22 Intralipid 20% IV 21 mls/hr 1900 MICHELLE Administration Sodium Chloride 1,000 mls @ 25 mls/hr 05/24/21 19:00 05/28/21 23:11 Normal Saline 0.9% IV 25 mls/hr .Q40H MICHELLE Administration Cefepime HCl 2 gm/ Sodium 100 mls @ 200 mls/hr 05/26/21 10:00 05/28/21 22:33 Chloride IV Infused Q12H MICHELLE Infusion Metronidazole 500 mg in 100 mls @ 100 mls/hr 05/26/21 22:00 05/29/21 06:30 Flagyl 500 Mg/100 Ml IV Infused Q8H MICHELLE Infusion Acetaminophen 100 mls @ 400 mls/hr 05/28/21 12:01 05/29/21 02:56 Ofirmev IV Infused Q6HR PRN Infusion PAIN Pantoprazole Sodium 40 mg 05/23/21 07:00 05/29/21 06:33 Pantoprazole 40 Mg Vial IVP 40 mg QDAC MICHELLE Administration Phenol/Menthol 1 sprays 05/23/21 00:41 05/25/21 08:12 Phenol Throat [place] 177 Ml MM 1 sprays Q2HR PRN Administration Throat Pain Sodium Chloride 10 ml 05/23/21 01:00 05/29/21 06:39 Sodium Chloride Flush 0.9% 10 Ml Syringe IVP 10 ml 0100,0900,1700 MICHELLE Administration Sodium Chloride 10 ml 05/23/21 00:41 05/28/21 20:15 Sodium Chloride Flush 0.9% 10 Ml Syringe IVP 10 ml PRN PRN Administration NEEDED PER PROVIDER ORDERS Sodium Chloride 20 ml 05/24/21 20:44 05/26/21 04:36 Sodium Chloride Flush 0.9% 10 Ml Syringe IVP 20 ml PRN PRN Administration After Blood Draw Sodium Chloride 2 sprays 05/26/21 21:04 05/26/21 22:17 Sodium Chloride 0.65% Nasal [place] JOSEFINA 1 spray Q4HR PRN Administration Nasal Congestion Throat Lozenges 1 lozenge 05/24/21 19:51 05/29/21 04:59 Benzocaine/Menthol Lozenge MM 1 lozenge Q2HR PRN Administration Throat pain - Lab Result Fish Bone Diagrams: 05/29/21 06:50 05/29/21 06:50 - Additional Planning My Orders: My Active Orders 05/30/21 05:00 BMP - BASIC METABOLIC PANEL [CHEM] DAILYLAB CBC - COMP BLD CT W/AUTO DIFF [HEME] DAILYLAB 05/31/21 05:00 BMP - BASIC METABOLIC PANEL [CHEM] DAILYLAB CBC - COMP BLD CT W/AUTO DIFF [HEME] DAILYLAB 06/01/21 05:00 BMP - BASIC METABOLIC PANEL [CHEM] DAILYLAB CBC - COMP BLD CT W/AUTO DIFF [HEME] DAILYLAB 06/02/21 05:00 BMP - BASIC METABOLIC PANEL [CHEM] DAILYLAB CBC - COMP BLD CT W/AUTO DIFF [HEME] DAILYLAB Subjective - Subjective Patient Reports: Other (Patient continues to improve daily. His pain is adequately managed with Dilaudid and Tylenol. He reports flatulence. There is decreased drainage in percutaneous tube. NG tube draining with bilious drain age.) Objective Vital Signs: Vital Signs - 24 hr 05/28/21 05/28/21 05/28/21 07:53 16:32 23:19 Temperature 36.6 C 36.5 C 36.9 C Heart Rate [ 65 70 67 Brachial] Respiratory 18 20 16 Rate Blood Pressure 133/69 H 153/67 H 132/65 H [Right Brachial artery] O2 Saturation 100 99 97 05/29/21 07:00 Temperature 37.1 C Heart Rate [ 71 Brachial] Respiratory 16 Rate Blood Pressure 157/82 H [Right Brachial artery] O2 Saturation 96 Oxygen O2 Source Room air I&O (Last 24 Hrs): Intake and Output Totals x24h 05/27/21 05/28/21 05/29/21 23:59 23:59 23:59 Intake Total 3645.85 3569.25 340 Output Total 1725 2730 1005 Balance 1920.85 839.25 -665 General: Alert, Oriented x3, Mild distress HEENT: Atraumatic Neck: Supple, No JVD Neuro: Alert, Non Focal, Oriented Times 3 Cardiovascular: Regular rate Respiratory: Chest non-tender, No respiratory distress, Breath sounds nml Abdomen: Normal bowel sounds, Soft, Other (Mild tenderness) Extremities: No clubbing, No cyanosis, No edema Skin: No rashes, No breakdown, No significant lesion - Results Results: Laboratory Results WBC 11.0 x10^3/uL (4.8-10.8) H 05/29/21 06:50 RBC 2.75 10^6/uL (4.70-6.10) L 05/29/21 06:50 Hgb 7.5 g/dL (14.0-18.0) L 05/29/21 06:50 Hct 25.2 % (42.0-52.0) L 05/29/21 06:50 MCV 91.6 fL (80.0-94.0) 05/29/21 06:50 MCH 27.3 pg (27.0-31.0) 05/29/21 06:50 MCHC 29.8 g/dL (32.0-36.0) L 05/29/21 06:50 RDW 15.4 % (12.0-15.0) H 05/29/21 06:50 Plt Count 285 10^3/uL (130-450) 05/29/21 06:50 MPV 9.2 fL (7.4-11.4) 05/29/21 06:50 Reticulocyte % (Auto) 0.68 % (0.5-2.3) 05/28/21 04:29 Neut # (Auto) 8.8 10^3/uL (1.5-6.6) H 05/29/21 06:50 Lymph # (Auto) 0.9 10^3/uL (1.5-3.5) L 05/29/21 06:50 [place] # (Auto) 0.5 10^3/uL (0.0-1.0) 05/29/21 06:50 Eos # (Auto) 0.6 10^3/uL (0.0-0.7) 05/29/21 06:50 Baso # (Auto) 0.0 10^3/uL (0.0-0.1) 05/29/21 06:50 Absolute Nucleated RBC 0.00 x10^3/uL 05/29/21 06:50 Total Counted 100 05/23/21 04:13 Band Neuts % (Manual) 0 % (0-10) 05/23/21 04:13 Abnorm Lymph % (Manual) 0 % 05/23/21 04:13 Nucleated RBC % 0.0 /100WBC 05/29/21 06:50 Neutrophils # (Manual) 18.7 10^3/uL (1.5-6.6) H 05/23/21 04:13 Lymphocytes # (Manual) 0.8 10^3/uL (1.5-3.5) L 05/23/21 04:13 Monocytes # (Manual) 0.4 10^3/uL (0.0-1.0) 05/23/21 04:13 Eosinophils # (Manual) 0.0 10^3/uL (0-0.7) 05/23/21 04:13 Basophils # (Manual) 0.0 10^3/uL (0-0.1) 05/23/21 04:13 Differential Comment MANUAL DIFFERENTIAL 05/23/21 04:13 WBC Morphology NORMAL APPEARANCE (NORMAL) 05/23/21 04:13 Platelet Estimate NORMAL (130-450,000) (NORMAL) 05/23/21 04:13 Platelet Morphology NORMAL APPEARANCE (NORMAL) 05/23/21 04:13 RBC Morph Micro Appear 1+ HYPOCHROMASIA (NORMAL) 05/23/21 04:13 Absolute Retic 0.019 10^6/uL (0.020-0.110) L 05/28/21 04:29 Sodium 137 mmol/L (135-145) 05/29/21 06:50 Potassium 3.6 mmol/L (3.5-5.0) 05/29/21 06:50 Chloride 103 mmol/L (101-111) 05/29/21 06:50 Carbon Dioxide 27 mmol/L (21-32) 05/29/21 06:50 Anion Gap 7.0 (6-13) 05/29/21 06:50 BUN 15 mg/dL (6-20) 05/29/21 06:50 Creatinine 0.4 mg/dL (0.6-1.2) L 05/29/21 06:50 Estimated GFR (MDRD) 211 (>89) 05/29/21 06:50 Glucose 125 mg/dL (70-100) H 05/29/21 06:50 POC Whole Bld Glucose 127 mg/dL (70 - 100) H 05/29/21 06:41 Lactic Acid 1.9 mmol/L (0.5-2.2) 05/22/21 20:57 Calcium 7.8 mg/dL (8.5-10.3) L 05/29/21 06:50 Phosphorus 2.3 mg/dL (2.5-4.6) L 05/29/21 06:50 Magnesium 1.8 mg/dL (1.7-2.8) 05/29/21 06:50 Iron 6 ug/dL (45-182) L 05/28/21 04:29 TIBC 98 ug/dL (250-450) L 05/24/21 05:02 % Saturation 9 % (20-50) L 05/24/21 05:02 Transferrin < 70 mg/dL (180-329) L 05/28/21 04:29 Transferrin < 70 mg/dL (180-329) L 05/28/21 04:29 Ferritin 332.3 ng/mL (23.9-336.2) 05/28/21 04:29 Total Bilirubin 0.5 mg/dL (0.2-1.0) 05/29/21 06:50 AST 10 IU/L (10-42) 05/29/21 06:50 ALT 10 IU/L (10-60) 05/29/21 06:50 Alkaline Phosphatase 93 IU/L (42-121) 05/29/21 06:50 Lactate Dehydrogenase 84 IU/L (91-225) L 05/28/21 04:29 Troponin I High Sens 4.4 ng/L (2.3-19.7) 05/22/21 20:18 Total Protein 5.1 g/dL (6.7-8.2) L 05/29/21 06:50 Albumin 1.7 g/dL (3.2-5.5) L 05/29/21 06:50 Globulin 3.4 g/dL (2.1-4.2) 05/29/21 06:50 Albumin/Globulin Ratio 0.5 (1.0-2.2) L 05/29/21 06:50 Prealbumin 6 mg/dL (18-45) L 05/29/21 06:50 Triglycerides 103 mg/dL (-149) 05/29/21 06:50 Lipase 18 U/L (22-51) L 05/22/21 20:18 Vitamin B12 1247 pg/mL (180-914) H 05/28/21 04:29 Folate 12.13 ng/mL (5.90 - >24.8) 05/24/21 05:02 Nasal Adenovirus (PCR) NOT DETECTED 05/27/21 22:10 Nasal B. parapertussis DNA (PCR) NOT DETECTED 05/27/21 22:10 Nasal Coronavir 229E PCR NOT DETECTED 05/27/21 22:10 Nasal Coronavir HKU1 PCR NOT DETECTED 05/27/21 22:10 Nasal Coronavir NL63 PCR NOT DETECTED 05/27/21 22:10 Nasal Coronavir OC43 PCR NOT DETECTED 05/27/21 22:10 Nasal Enterovir/Rhinovir PCR NOT DETECTED 05/27/21 22:10 Nasal Influenza B PCR NOT DETECTED 05/27/21 22:10 Nasal Influenza A PCR NOT DETECTED 05/27/21 22:10 Nasal Parainfluen 1 PCR NOT DETECTED 05/27/21 22:10 Nasal Parainfluen 2 PCR NOT DETECTED 05/27/21 22:10 Nasal Parainfluen 3 PCR NOT DETECTED 05/27/21 22:10 Nasal Parainfluen 4 PCR NOT DETECTED 05/27/21 22:10 Nasal RSV (PCR) NOT DETECTED 05/27/21 22:10 Nasal Screen MRSA (PCR) NEGATIVE (NEGATIVE) 05/23/21 02:00 Nasal B.pertussis DNA PCR NOT DETECTED 05/27/21 22:10 Nasal C.pneumoniae (PCR) NOT DETECTED 05/27/21 22:10 Josefina Human Metapneumo PCR NOT DETECTED 05/27/21 22:10 Nasal M.pneumoniae (PCR) NOT DETECTED 05/27/21 22:10 Nasal SARS-CoV-2 (PCR) NOT DETECTED 05/27/21 22:10 Blood Type O POSITIVE 05/22/21 22:32 Blood Type Recheck O POSITIVE 05/22/21 20:18 Antibody Screen NEGATIVE 05/22/21 22:32 Crossmatch IS Only See Detail 05/22/21 22:32 ABX Reporting Has patient been on IV antibiotics over the past 48 hours?: Yes
[2021-05-29] MEDS: FLUCONAZOLE 200 MG/100 ML 100 ML IV SCH (10:36)
[2021-05-29] MEDS: CEFEPIME 2 GM in SODIUM CHLORIDE 0.9% MINIBAG 100 ML IV SCH ×2 (10:37→22:08)
[2021-05-29] MEDS: ENOXAPARIN 40 MG/0.4 ML SYRINGE SUBQ SCH (10:37)
--- NOTE | 2021-05-29 10:52 | PROVIDER PROGRESS NOTE ---
Subjective - General Admit Date: 05/23/21 Procedure Date: 05/23/21 Post Op Days: 6 Procedure Performed: Ex lap with repair of gastric ulcer - Review of Systems Wound/Incisions: positive: Healing well Drain Type: serous General: positive: Fatigue HEENT: positive: No symptoms Pulmonary: positive: No symptoms Cardiovascular: positive: No symptoms Gastrointestinal: positive: Abdominal pain. negative: Nausea, Vomiting Genitourinary: positive: No symptoms Musculoskeletal: positive: No symptoms All Other Systems: positive: Reviewed and negative - Other Other Information/Narrative: Art reports he feels a little better today though he still has a cough. He had brightly colored clear liquids yesterday and his drain remained clear. He herbie es any nausea. Objective - Patient Data Reviewed Vital Signs: Yes Vital Signs: Vital Signs x48h Temp Pulse Resp BP Pulse Ox 05/29/21 07:00 37.1 C 71 16 157/82 H 96 Weight: Weight 05/27/21 05/28/21 05/29/21 23:59 23:59 23:59 Weight (kg) 87 kg 84 kg 82 kg Intake & Output: Intake and Output Totals x24h 05/27/21 05/28/21 05/29/21 23:59 23:59 23:59 Intake Total 3645.85 3569.25 340 Output Total 1725 2730 1005 Balance 1920.85 839.25 -665 - Lab Results Lab Results: 05/29/21 06:50 05/29/21 06:50 Other Lab Results: Lab Results x24hrs 05/29/21 05/29/21 05/29/21 Range/Units 06:50 06:50 06:41 WBC 11.0 H (4.8-10.8) x10^3/uL RBC 2.75 L (4.70-6.10) 10^6/uL Hgb 7.5 L (14.0-18.0) g/dL Hct 25.2 L (42.0-52.0) % MCV 91.6 (80.0-94.0) fL MCH 27.3 (27.0-31.0) pg MCHC 29.8 L (32.0-36.0) g/dL RDW 15.4 H (12.0-15.0) % Plt Count 285 (130-450) 10^3/uL MPV 9.2 (7.4-11.4) fL Neut # (Auto) 8.8 H (1.5-6.6) 10^3/uL Lymph # (Auto) 0.9 L (1.5-3.5) 10^3/uL [place] # (Auto) 0.5 (0.0-1.0) 10^3/uL Eos # (Auto) 0.6 (0.0-0.7) 10^3/uL Baso # (Auto) 0.0 (0.0-0.1) 10^3/uL Absolute Nucleated RBC 0.00 x10^3/uL Nucleated RBC % 0.0 /100WBC Sodium 137 (135-145) mmol/L Potassium 3.6 (3.5-5.0) mmol/L Chloride 103 (101-111) mmol/L Carbon Dioxide 27 (21-32) mmol/L Anion Gap 7.0 (6-13) BUN 15 (6-20) mg/dL Creatinine 0.4 L (0.6-1.2) mg/dL Estimated GFR (MDRD) 211 (>89) Glucose 125 H (70-100) mg/dL POC Whole Bld Glucose 127 H (70 - 100) mg/dL Calcium 7.8 L (8.5-10.3) mg/dL Phosphorus 2.3 L (2.5-4.6) mg/dL Magnesium 1.8 (1.7-2.8) mg/dL Total Bilirubin 0.5 (0.2-1.0) mg/dL AST 10 (10-42) IU/L ALT 10 (10-60) IU/L Alkaline Phosphatase 93 (42-121) IU/L Total Protein 5.1 L (6.7-8.2) g/dL Albumin 1.7 L (3.2-5.5) g/dL Globulin 3.4 (2.1-4.2) g/dL Albumin/Globulin Ratio 0.5 L (1.0-2.2) Prealbumin 6 L (18-45) mg/dL Triglycerides 103 ( - 149) mg/dL 05/29/21 05/28/21 05/28/21 Range/Units 00:07 17:56 11:50 WBC (4.8-10.8) x10^3/uL RBC (4.70-6.10) 10^6/uL Hgb (14.0-18.0) g/dL Hct (42.0-52.0) % MCV (80.0-94.0) fL MCH (27.0-31.0) pg MCHC (32.0-36.0) g/dL RDW (12.0-15.0) % Plt Count (130-450) 10^3/uL MPV (7.4-11.4) fL Neut # (Auto) (1.5-6.6) 10^3/uL Lymph # (Auto) (1.5-3.5) 10^3/uL [place] # (Auto) (0.0-1.0) 10^3/uL Eos # (Auto) (0.0-0.7) 10^3/uL Baso # (Auto) (0.0-0.1) 10^3/uL Absolute Nucleated RBC x10^3/uL Nucleated RBC % /100WBC Sodium 138 (135-145) mmol/L Potassium 3.8 (3.5-5.0) mmol/L Chloride 106 (101-111) mmol/L Carbon Dioxide 26 (21-32) mmol/L Anion Gap 6.0 (6-13) BUN 18 (6-20) mg/dL Creatinine 0.6 (0.6-1.2) mg/dL Estimated GFR (MDRD) 132 (>89) Glucose 125 H (70-100) mg/dL POC Whole Bld Glucose 118 H 134 H (70 - 100) mg/dL Calcium 8.1 L (8.5-10.3) mg/dL Phosphorus (2.5-4.6) mg/dL Magnesium (1.7-2.8) mg/dL Total Bilirubin (0.2-1.0) mg/dL AST (10-42) IU/L ALT (10-60) IU/L Alkaline Phosphatase (42-121) IU/L Total Protein (6.7-8.2) g/dL Albumin (3.2-5.5) g/dL Globulin (2.1-4.2) g/dL Albumin/Globulin Ratio (1.0-2.2) Prealbumin (18-45) mg/dL Triglycerides ( - 149) mg/dL 05/28/21 05/28/21 Range/Units 11:50 11:18 WBC 12.2 H (4.8-10.8) x10^3/uL RBC 2.83 L (4.70-6.10) 10^6/uL Hgb 7.8 L (14.0-18.0) g/dL Hct 26.3 L (42.0-52.0) % MCV 92.9 (80.0-94.0) fL MCH 27.6 (27.0-31.0) pg MCHC 29.7 L (32.0-36.0) g/dL RDW 15.4 H (12.0-15.0) % Plt Count 261 (130-450) 10^3/uL MPV 8.8 (7.4-11.4) fL Neut # (Auto) 10.4 H (1.5-6.6) 10^3/uL Lymph # (Auto) 0.7 L (1.5-3.5) 10^3/uL [place] # (Auto) 0.4 (0.0-1.0) 10^3/uL Eos # (Auto) 0.5 (0.0-0.7) 10^3/uL Baso # (Auto) 0.0 (0.0-0.1) 10^3/uL Absolute Nucleated RBC 0.00 x10^3/uL Nucleated RBC % 0.0 /100WBC Sodium (135-145) mmol/L Potassium (3.5-5.0) mmol/L Chloride (101-111) mmol/L Carbon Dioxide (21-32) mmol/L Anion Gap (6-13) BUN (6-20) mg/dL Creatinine (0.6-1.2) mg/dL Estimated GFR (MDRD) (>89) Glucose (70-100) mg/dL POC Whole Bld Glucose 100 (70 - 100) mg/dL Calcium (8.5-10.3) mg/dL Phosphorus (2.5-4.6) mg/dL Magnesium (1.7-2.8) mg/dL Total Bilirubin (0.2-1.0) mg/dL AST (10-42) IU/L ALT (10-60) IU/L Alkaline Phosphatase (42-121) IU/L Total Protein (6.7-8.2) g/dL Albumin (3.2-5.5) g/dL Globulin (2.1-4.2) g/dL Albumin/Globulin Ratio (1.0-2.2) Prealbumin (18-45) mg/dL Triglycerides ( - 149) mg/dL - Current Medications Current Medications: Current Medications Generic Name Dose Route Start Last Admin Trade Name Freq PRN Reason Stop Dose Admin Enoxaparin Sodium 40 mg 05/24/21 09:00 05/29/21 10:37 Enoxaparin 40 Mg/0.4 Ml Syringe SUBQ 40 mg DAILY MICHELLE Administration Hydromorphone HCl 0.5 mg 05/28/21 08:20 05/29/21 06:38 Hydromorphone 0.5 Mg/0.5 Ml Syringe IVP 0.5 mg Q4H PRN Administration PAIN Fluconazole 100 mls @ 100 mls/hr 05/23/21 09:00 05/29/21 10:36 Diflucan 200 Mg/100 Ml IV 100 mls/hr DAILY MICHELLE Administration Multivitamins 10 ml/ TRACE 2,011 mls @ 83 mls/hr 05/24/21 19:00 05/28/21 20:22 ELEMENTS 1 ml/ Amino Ac/ IV 75 mls/hr Electrol/Dextrose/Calcium TPN/PPN MICHELLE Administration Fat Emulsion Intravenous 250 mls @ 21 mls/hr 05/24/21 19:00 05/28/21 20:22 Intralipid 20% IV 21 mls/hr 1900 MICHELLE Administration Sodium Chloride 1,000 mls @ 25 mls/hr 05/24/21 19:00 05/28/21 23:11 Normal Saline 0.9% IV 25 mls/hr .Q40H MICHELLE Administration Cefepime HCl 2 gm/ Sodium 100 mls @ 200 mls/hr 05/26/21 10:05/29/21 10:37 Chloride IV 200 mls/hr Q12H MICHELLE Administration Metronidazole 500 mg in 100 mls @ 100 mls/hr 05/26/21 22:00 05/29/21 06:30 Flagyl 500 Mg/100 Ml IV Infused Q8H MICHELLE Infusion Acetaminophen 100 mls @ 400 mls/hr 05/28/21 12:01 05/29/21 10:37 Ofirmev IV 400 mls/hr Q6HR PRN Administration PAIN Pantoprazole Sodium 40 mg 05/23/21 07:00 05/29/21 06:33 Pantoprazole 40 Mg Vial IVP 40 mg QDAC MICHELLE Administration Phenol/Menthol 1 sprays 05/23/21 00:41 05/25/21 08:12 Phenol Throat [place] 177 Ml MM 1 sprays Q2HR PRN Administration Throat Pain Sodium Chloride 10 ml 05/23/21 01:00 05/29/21 06:39 Sodium Chloride Flush 0.9% 10 Ml Syringe IVP 10 ml 0100,0900,1700 MICHELLE Administration Sodium Chloride 10 ml 05/23/21 00:41 05/28/21 20:15 Sodium Chloride Flush 0.9% 10 Ml Syringe IVP 10 ml PRN PRN Administration NEEDED PER PROVIDER ORDERS Sodium Chloride 20 ml 05/24/21 20:44 05/26/21 04:36 Sodium Chloride Flush 0.9% 10 Ml Syringe IVP 20 ml PRN PRN Administration After Blood Draw Sodium Chloride 2 sprays 05/26/21 21:04 05/26/21 22:17 Sodium Chloride 0.65% Nasal [place] JOSEFINA 1 spray Q4HR PRN Administration Nasal Congestion Throat Lozenges 1 lozenge 05/24/21 19:51 05/29/21 04:59 Benzocaine/Menthol Lozenge MM 1 lozenge Q2HR PRN Administration Throat pain - Physical Exam Wound/Incisions: positive: Healing well General Appearance: positive: No acute distress Eyes Bilateral: positive: Normal inspection ENT: positive: ENT inspection nml Respiratory: positive: Breath sounds nml (Good air movement. Upper airway noise but improves with coughing.) Cardiovascular: positive: Regular rate & rhythm Abdomen: positive: Tenderness (Appropriately tender but his wound is clean and dry and well approximated. He has active bowel sounds.). negative: Guarding, Rebound Skin: positive: Color nml Neurologic/Psychiatric: positive: Oriented x3 ABX Reporting Has patient been on IV antibiotics over the past 48 hours?: Yes Impression/Plan - Problem List Problem List: 1. Improving after sepsis secondary to perforated gastric ulcer and chronic malnutrition. 2. Continue TPN. Prealbumin is finally starting to come up. 3. No evidence of continuing leak. Leave drain in place but will remove NG tube today and start clear liquids. 4. Encourage patient to be up out of the bed in a chair for most of the day. 5. Aggressive pulmonary hygiene.
[2021-05-29] MEDS: FAT EMULSION 20% 250 ML IV SCH (20:20)
[2021-05-29] MEDS: TPN (CLINIMIX E 5/15) 2,000 ML with MULTIVITAMIN 10 ML, TRACE ELEMENTS 1 ML IV SCH ×3 (20:20)
[2021-05-29] MEDS: SODIUM CHLORIDE FLUSH 0.9% 10 ML SYRINGE IVP PRN (23:53)
[2021-05-30] MEDS: ACETAMINOPHEN 1,000 MG/100 ML 100 ML IV PRN ×4 (02:09→21:52)
[2021-05-30] MEDS: BENZOCAINE/MENTHOL LOZENGE MM PRN (02:49)
[2021-05-30] MEDS: SODIUM CHLORIDE FLUSH 0.9% 10 ML SYRINGE IVP SCH ×2 (04:09→06:06)
[2021-05-30] MEDS: HYDROmorphone 0.5 MG/0.5 ML SYRINGE IVP PRN ×3 (04:09→14:29)
[2021-05-30] MEDS: metroNIDAZOLE 500 MG/100 ML 500 MG/100 ML BAG IV SCH ×3 (05:19→22:21)
[2021-05-30 05:24] LABS: BASOPHILS % (AUTO) 0.4 %; EOSINOPHILS # (AUTO) 0.8 10^3/uL (0.0-0.7); EOSINOPHILS % (AUTO) 7.8 %; HCT - HEMATOCRIT 24.9 % (42.0-52.0); HGB - HEMOGLOBIN 7.4 g/dL (14.0-18.0); LYMPHOCYTES % (AUTO) 9.8 %; MEAN CORPUSCULAR HEMOGLOBIN 27.5 pg (27.0-31.0); MEAN CORPUSCULAR HGB CONC 29.7 g/dL (32.0-36.0); MEAN CORPUSCULAR VOLUME 92.6 fL (80.0-94.0); MEAN PLATELET VOLUME 9.5 fL (7.4-11.4); MONOCYTES # (AUTO) 0.6 10^3/uL (0.0-1.0); MONOCYTES % (AUTO) 5.6 %; NEUTROPHILS # (AUTO) 7.6 10^3/uL (1.5-6.6); PLT - PLATELET COUNT 303 10^3/uL (130-450); RED BLOOD COUNT 2.69 10^6/uL (4.70-6.10); RED CELL DISTRIBUTION WIDTH 15.3 % (12.0-15.0); WHITE BLOOD COUNT 10.3 x10^3/uL (4.8-10.8)
[2021-05-30 05:32] LABS: CALCIUM 7.8 mg/dL (8.5-10.3); CREATININE 0.4 mg/dL (0.6-1.2); POTASSIUM 3.5 mmol/L (3.5-5.0)
[2021-05-30] MEDS: PANTOPRAZOLE 40 MG VIAL IVP SCH (06:06)
[2021-05-30] MEDS: SODIUM CHLORIDE FLUSH 0.9% 10 ML SYRINGE IVP PRN (06:06)
--- NOTE | 2021-05-30 08:34 | PROVIDER PROGRESS NOTE ---
Assessment/Plan - Problem List (1) Abnormal chest xray Assessment/Plan: Chest x-ray favored atelectasis over pneumonia. He is afebrile and white blood cell count is 10.3. Patient has been encouraged to use his incentive spirometer often. (2) Anemia Qualifiers: Anemia type: unspecified type Qualified Code(s): D64.9 - Anemia, unspecifie d Assessment/Plan: Patient was anemic upon presentation and was transfused 2 units of packed red blood cells. Hemoglobin remained stable today at 7.4. We will continue to monitor. He would needs oral supplemental iron upon discharge and once he is adequately from current surgery (3) Perforated abdominal viscus Assessment/Plan: Postoperative day #8 for exploratory laparotomy with Luca patch of ruptured duodenal ulcer. Patient is receiving TPN. Nutrition following. Pain management as needed with oxycodone and Tylenol. Plan for NG tube to be removed today Patient reported a bowel movement last night. Patient has been encouraged to ambulate. He is on cefepime and Flagyl. General surgery primary. (4) Post-operative pain Assessment/Plan: Oxycodone 5 mg p.o. every 4 hours as needed. Tylenol 1 g IV every 6 hours as needed. (5) Severe protein-calorie malnutrition Assessment/Plan: On TPN. Nutrition following. - Current Meds Current Meds: Current Medications Generic Name Dose Route Start Last Admin Trade Name Freq PRN Reason Stop Dose Admin Enoxaparin Sodium 40 mg 05/24/21 09:00 05/29/21 10:37 Enoxaparin 40 Mg/0.4 Ml Syringe SUBQ 40 mg DAILY MICHELLE Administration Hydromorphone HCl 0.5 mg 05/28/21 08:20 05/30/21 04:09 Hydromorphone 0.5 Mg/0.5 Ml Syringe IVP 0.5 mg Q4H PRN Administration PAIN Fluconazole 100 mls @ 100 mls/hr 05/23/21 09:00 05/29/21 11:30 Diflucan 200 Mg/100 Ml IV 0 mls/hr DAILY MICHELLE Infusion Multivitamins 10 ml/ TRACE 2,011 mls @ 83 mls/hr 05/24/21 19:00 05/29/21 20:20 ELEMENTS 1 ml/ Amino Ac/ IV 75 mls/hr Electrol/Dextrose/Calcium TPN/PPN MICHELLE Administration Fat Emulsion Intravenous 250 mls @ 21 mls/hr 05/24/21 19:00 05/29/21 20:20 Intralipid 20% IV 21 mls/hr 1900 MICHELLE Administration Sodium Chloride 1,000 mls @ 25 mls/hr 05/24/21 19:00 05/28/21 23:11 Normal Saline 0.9% IV 25 mls/hr .Q40H MICHELLE Administration Cefepime HCl 2 gm/ Sodium 100 mls @ 200 mls/hr 05/26/21 10:00 05/29/21 22:38 Chloride IV Infused Q12H MICHELLE Infusion Metronidazole 500 mg in 100 mls @ 100 mls/hr 05/26/21 22:00 05/30/21 05:19 Flagyl 500 Mg/100 Ml IV 100 mls/hr Q8H MICHELLE Administration Acetaminophen 100 mls @ 400 mls/hr 05/28/21 12:01 05/30/21 02:24 Ofirmev IV Infused Q6HR PRN Infusion PAIN Pantoprazole Sodium 40 mg 05/23/21 07:00 05/30/21 06:06 Pantoprazole 40 Mg Vial IVP 40 mg QDAC MICHELLE Administration Phenol/Menthol 1 sprays 05/23/21 00:41 05/25/21 08:12 Phenol Throat [place] 177 Ml MM 1 sprays Q2HR PRN Administration Throat Pain Sodium Chloride 10 ml 05/23/21 01:00 05/30/21 06:06 Sodium Chloride Flush 0.9% 10 Ml Syringe IVP 10 ml 0100,0900,1700 MICHELLE Administration Sodium Chloride 10 ml 05/23/21 00:41 05/30/21 06:06 Sodium Chloride Flush 0.9% 10 Ml Syringe IVP 10 ml PRN PRN Administration NEEDED PER PROVIDER ORDERS Sodium Chloride 20 ml 05/24/21 20:44 05/26/21 04:36 Sodium Chloride Flush 0.9% 10 Ml Syringe IVP 20 ml PRN PRN Administration After Blood Draw Sodium Chloride 2 sprays 05/26/21 21:04 05/26/21 22:17 Sodium Chloride 0.65% Nasal [place] JOSEFINA 1 spray Q4HR PRN Administration Nasal Congestion Throat Lozenges 1 lozenge 05/24/21 19:51 05/30/21 02:49 Benzocaine/Menthol Lozenge MM 1 lozenge Q2HR PRN Administration Throat pain - Lab Result Fish Bone Diagrams: 05/30/21 05:15 05/30/21 05:15 - Additional Planning My Orders: My Active Orders 05/31/21 05:00 BMP - BASIC METABOLIC PANEL [CHEM] DAILYLAB CBC - COMP BLD CT W/AUTO DIFF [HEME] DAILYLAB 06/01/21 05:00 BMP - BASIC METABOLIC PANEL [CHEM] DAILYLAB CBC - COMP BLD CT W/AUTO DIFF [HEME] DAILYLAB 06/02/21 05:00 BMP - BASIC METABOLIC PANEL [CHEM] DAILYLAB CBC - COMP BLD CT W/AUTO DIFF [HEME] DAILYLAB Subjective - Subjective Patient Reports: Other (Continues to improve daily. He continues to report blood plants and bowel movement. BRYAN drainage serous appearing fluid. Patient was very apprehensive to the plan of switching from IV pain meds to oral in anticipation of discharge in a few days.) Objective Vital Signs: Vital Signs - 24 hr 05/29/21 05/29/21 15:00 23:00 Temperature 37.2 C 37.1 C Heart Rate [ 71 68 Brachial] Respiratory 20 16 Rate Blood Pressure 143/69 H 147/75 H [Right Brachial artery] O2 Saturation 99 97 Oxygen O2 Source Room air I&O (Last 24 Hrs): Intake and Output Totals x24h 05/28/21 05/29/21 05/30/21 23:59 23:59 23:59 Intake Total 3569.25 3817.5 200 Output Total 2730 1535 750 Balance 839.25 2282.5 -550 Comments/Notes: General: Alert, Oriented x3, Mild distress HEENT: Atraumatic Neck: Supple, No JVD Neuro: Alert, Non Focal, Oriented Times 3 Cardiovascular: Regular rate Respiratory: Chest non-tender, No respiratory distress, Breath sounds nml Abdomen: Normal bowel sounds, Soft, Other (Mild tenderness) Extremities: No clubbing, No cyanosis, No edema Skin: No rashes, No breakdown, No significant lesion - Results Results: Laboratory Results WBC 10.3 x10^3/uL (4.8-10.8) 05/30/21 05:15 RBC 2.69 10^6/uL (4.70-6.10) L 05/30/21 05:15 Hgb 7.4 g/dL (14.0-18.0) L 05/30/21 05:15 Hct 24.9 % (42.0-52.0) L 05/30/21 05:15 MCV 92.6 fL (80.0-94.0) 05/30/21 05:15 MCH 27.5 pg (27.0-31.0) 05/30/21 05:15 MCHC 29.7 g/dL (32.0-36.0) L 05/30/21 05:15 RDW 15.3 % (12.0-15.0) H 05/30/21 05:15 Plt Count 303 10^3/uL (130-450) 05/30/21 05:15 MPV 9.5 fL (7.4-11.4) 05/30/21 05:15 Reticulocyte % (Auto) 0.68 % (0.5-2.3) 05/28/21 04:29 Neut # (Auto) 7.6 10^3/uL (1.5-6.6) H 05/30/21 05:15 Lymph # (Auto) 1.0 10^3/uL (1.5-3.5) L 05/30/21 05:15 [place] # (Auto) 0.6 10^3/uL (0.0-1.0) 05/30/21 05:15 Eos # (Auto) 0.8 10^3/uL (0.0-0.7) H 05/30/21 05:15 Baso # (Auto) 0.0 10^3/uL (0.0-0.1) 05/30/21 05:15 Absolute Nucleated RBC 0.00 x10^3/uL 05/30/21 05:15 Total Counted 100 05/23/21 04:13 Band Neuts % (Manual) 0 % (0-10) 05/23/21 04:13 Abnorm Lymph % (Manual) 0 % 05/23/21 04:13 Nucleated RBC % 0.0 /100WBC 05/30/21 05:15 Neutrophils # (Manual) 18.7 10^3/uL (1.5-6.6) H 05/23/21 04:13 Lymphocytes # (Manual) 0.8 10^3/uL (1.5-3.5) L 05/23/21 04:13 Monocytes # (Manual) 0.4 10^3/uL (0.0-1.0) 05/23/21 04:13 Eosinophils # (Manual) 0.0 10^3/uL (0-0.7) 05/23/21 04:13 Basophils # (Manual) 0.0 10^3/uL (0-0.1) 05/23/21 04:13 Differential Comment MANUAL DIFFERENTIAL 05/23/21 04:13 WBC Morphology NORMAL APPEARANCE (NORMAL) 05/23/21 04:13 Platelet Estimate NORMAL (130-450,000) (NORMAL) 05/23/21 04:13 Platelet Morphology NORMAL APPEARANCE (NORMAL) 05/23/21 04:13 RBC Morph Micro Appear 1+ HYPOCHROMASIA (NORMAL) 05/23/21 04:13 Absolute Retic 0.019 10^6/uL (0.020-0.110) L 05/28/21 04:29 Sodium 137 mmol/L (135-145) 05/30/21 05:15 Potassium 3.5 mmol/L (3.5-5.0) 05/30/21 05:15 Chloride 104 mmol/L (101-111) 05/30/21 05:15 Carbon Dioxide 26 mmol/L (21-32) 05/30/21 05:15 Anion Gap 7.0 (6-13) 05/30/21 05:15 BUN 13 mg/dL (6-20) 05/30/21 05:15 Creatinine 0.4 mg/dL (0.6-1.2) L 05/30/21 05:15 Estimated GFR (MDRD) 211 (>89) 05/30/21 05:15 Glucose 118 mg/dL (70-100) H 05/30/21 05:15 POC Whole Bld Glucose 119 mg/dL (70 - 100) H 05/29/21 23:42 Lactic Acid 1.9 mmol/L (0.5-2.2) 05/22/21 20:57 Calcium 7.8 mg/dL (8.5-10.3) L 05/30/21 05:15 Phosphorus 2.3 mg/dL (2.5-4.6) L 05/29/21 06:50 Magnesium 1.8 mg/dL (1.7-2.8) 05/29/21 06:50 Iron 6 ug/dL (45-182) L 05/28/21 04:29 TIBC 98 ug/dL (250-450) L 05/24/21 05:02 % Saturation 9 % (20-50) L 05/24/21 05:02 Transferrin < 70 mg/dL (180-329) L 05/28/21 04:29 Transferrin < 70 mg/dL (180-329) L 05/28/21 04:29 Ferritin 332.3 ng/mL (23.9-336.2) 05/28/21 04:29 Total Bilirubin 0.5 mg/dL (0.2-1.0) 05/29/21 06:50 AST 10 IU/L (10-42) 05/29/21 06:50 ALT 10 IU/L (10-60) 05/29/21 06:50 Alkaline Phosphatase 93 IU/L (42-121) 05/29/21 06:50 Lactate Dehydrogenase 84 IU/L (91-225) L 05/28/21 04:29 Troponin I High Sens 4.4 ng/L (2.3-19.7) 05/22/21 20:18 Total Protein 5.1 g/dL (6.7-8.2) L 05/29/21 06:50 Albumin 1.7 g/dL (3.2-5.5) L 05/29/21 06:50 Globulin 3.4 g/dL (2.1-4.2) 05/29/21 06:50 Albumin/Globulin Ratio 0.5 (1.0-2.2) L 05/29/21 06:50 Prealbumin 6 mg/dL (18-45) L 05/29/21 06:50 Triglycerides 103 mg/dL (-149) 05/29/21 06:50 Lipase 18 U/L (22-51) L 05/22/21 20:18 Vitamin B12 1247 pg/mL (180-914) H 05/28/21 04:29 Folate 12.13 ng/mL (5.90 - >24.8) 05/24/21 05:02 Nasal Adenovirus (PCR) NOT DETECTED 05/27/21 22:10 Nasal B. parapertussis DNA (PCR) NOT DETECTED 05/27/21 22:10 Nasal Coronavir 229E PCR NOT DETECTED 05/27/21 22:10 Nasal Coronavir HKU1 PCR NOT DETECTED 05/27/21 22:10 Nasal Coronavir NL63 PCR NOT DETECTED 05/27/21 22:10 Nasal Coronavir OC43 PCR NOT DETECTED 05/27/21 22:10 Nasal Enterovir/Rhinovir PCR NOT DETECTED 05/27/21 22:10 Nasal Influenza B PCR NOT DETECTED 05/27/21 22:10 Nasal Influenza A PCR NOT DETECTED 05/27/21 22:10 Nasal Parainfluen 1 PCR NOT DETECTED 05/27/21 22:10 Nasal Parainfluen 2 PCR NOT DETECTED 05/27/21 22:10 Nasal Parainfluen 3 PCR NOT DETECTED 05/27/21 22:10 Nasal Parainfluen 4 PCR NOT DETECTED 05/27/21 22:10 Nasal RSV (PCR) NOT DETECTED 05/27/21 22:10 Nasal Screen MRSA (PCR) NEGATIVE (NEGATIVE) 05/23/21 02:00 Nasal B.pertussis DNA PCR NOT DETECTED 05/27/21 22:10 Nasal C.pneumoniae (PCR) NOT DETECTED 05/27/21 22:10 [place] Human Metapneumo PCR NOT DETECTED 05/27/21 22:10 Nasal M.pneumoniae (PCR) NOT DETECTED 05/27/21 22:10 Nasal SARS-CoV-2 (PCR) NOT DETECTED 05/27/21 22:10 Blood Type O POSITIVE 05/22/21 22:32 Blood Type Recheck O POSITIVE 05/22/21 20:18 Antibody Screen NEGATIVE 05/22/21 22:32 Crossmatch IS Only See Detail 05/22/21 22:32 ABX Reporting Has patient been on IV antibiotics over the past 48 hours?: No
[2021-05-30] MEDS: ENOXAPARIN 40 MG/0.4 ML SYRINGE SUBQ SCH (09:34)
[2021-05-30] MEDS: ONDANSETRON 4 MG/2 ML VIAL IVP PRN (09:34)
[2021-05-30] MEDS: FLUCONAZOLE 200 MG/100 ML 100 ML IV SCH (09:35)
[2021-05-30] MEDS: CEFEPIME 2 GM in SODIUM CHLORIDE 0.9% MINIBAG 100 ML IV SCH ×2 (09:36→21:22)
--- NOTE | 2021-05-30 12:24 | PROVIDER PROGRESS NOTE ---
Subjective - Prog Note Date Prog Note Date: 05/30/21 - Subjective Pt reports feeling: Improved Subjective: tolerating clears well. no appetite for food Objective - Vital Signs/Intake & Output Vital Signs: Vital Signs x48h Temp Pulse Resp BP Pulse Ox 05/30/21 08:43 37 C 78 20 162/84 H 96 Intake & Output: Intake & Output 05/27/21 05/28/21 05/29/21 05/30/21 23:59 23:59 23:59 23:59 Intake Total 3645.85 3569.25 3817.5 850 Output Total 1725 2730 1535 750 Balance 1920.85 839.25 2282.5 100 - Objective General Appearance: positive: No acute distress, Alert Eyes Bilateral: positive: PERRL, EOMI Respiratory: positive: No respiratory distress Abdomen: positive: Non-tender, No distention, Other (incision c/d/i without erythema. monique serous) Neurologic/Psychiatric: positive: Oriented x3 - Lab Results Fish Bones: 05/30/21 05:15 05/30/21 05:15 Other Labs: Lab Results x24hrs 05/30/21 05/30/21 05/30/21 Range/Units 11:41 05:15 05:15 WBC 10.3 (4.8-10.8) x10^3/uL RBC 2.69 L (4.70-6.10) 10^6/uL Hgb 7.4 L (14.0-18.0) g/dL Hct 24.9 L (42.0-52.0) % MCV 92.6 (80.0-94.0) fL MCH 27.5 (27.0-31.0) pg MCHC 29.7 L (32.0-36.0) g/dL RDW 15.3 H (12.0-15.0) % Plt Count 303 (130-450) 10^3/uL MPV 9.5 (7.4-11.4) fL Neut # (Auto) 7.6 H (1.5-6.6) 10^3/uL Lymph # (Auto) 1.0 L (1.5-3.5) 10^3/uL [place] # (Auto) 0.6 (0.0-1.0) 10^3/uL Eos # (Auto) 0.8 H (0.0-0.7) 10^3/uL Baso # (Auto) 0.0 (0.0-0.1) 10^3/uL Absolute Nucleated RBC 0.00 x10^3/uL Nucleated RBC % 0.0 /100WBC Sodium 137 (135-145) mmol/L Potassium 3.5 (3.5-5.0) mmol/L Chloride 104 (101-111) mmol/L Carbon Dioxide 26 (21-32) mmol/L Anion Gap 7.0 (6-13) BUN 13 (6-20) mg/dL Creatinine 0.4 L (0.6-1.2) mg/dL Estimated GFR (MDRD) 211 (>89) Glucose 118 H (70-100) mg/dL POC Whole Bld Glucose 130 H (70 - 100) mg/dL Calcium 7.8 L (8.5-10.3) mg/dL 05/29/21 05/29/21 Range/Units 23:42 17:52 WBC (4.8-10.8) x10^3/uL RBC (4.70-6.10) 10^6/uL Hgb (14.0-18.0) g/dL Hct (42.0-52.0) % MCV (80.0-94.0) fL MCH (27.0-31.0) pg MCHC (32.0-36.0) g/dL RDW (12.0-15.0) % Plt Count (130-450) 10^3/uL MPV (7.4-11.4) fL Neut # (Auto) (1.5-6.6) 10^3/uL Lymph # (Auto) (1.5-3.5) 10^3/uL [place] # (Auto) (0.0-1.0) 10^3/uL Eos # (Auto) (0.0-0.7) 10^3/uL Baso # (Auto) (0.0-0.1) 10^3/uL Absolute Nucleated RBC x10^3/uL Nucleated RBC % /100WBC Sodium (135-145) mmol/L Potassium (3.5-5.0) mmol/L Chloride (101-111) mmol/L Carbon Dioxide (21-32) mmol/L Anion Gap (6-13) BUN (6-20) mg/dL Creatinine (0.6-1.2) mg/dL Estimated GFR (MDRD) (>89) Glucose (70-100) mg/dL POC Whole Bld Glucose 119 H 121 H (70 - 100) mg/dL Calcium (8.5-10.3) mg/dL Assessment/Plan - Problem List (1) Perforated abdominal viscus Impression: continue present care daily dressing change. ok to shower and get incision wet continue monique liquid nutrition drink ie boost as tolerated
[2021-05-30] MEDS: oxyCODONE 5 MG TABLET PO PRN ×2 (18:53→22:55)
[2021-05-30] MEDS: FAT EMULSION 20% 250 ML IV SCH (18:58)
[2021-05-30] MEDS: TPN (CLINIMIX E 5/15) 2,000 ML with MULTIVITAMIN 10 ML, TRACE ELEMENTS 1 ML IV SCH ×3 (18:59)
[2021-05-30] MEDS: SODIUM CHLORIDE 0.9% 1,000 ML IV SCH (21:07)
[2021-05-30] MEDS: guaiFENesin 100 MG/5 ML UDC PO PRN (22:30)
[2021-05-30] MEDS: BENZONATATE 100 MG CAPSULE PO PRN (22:30)
[2021-05-31] MEDS: oxyCODONE 5 MG TABLET PO PRN ×4 (03:17→18:37)
[2021-05-31] MEDS: ACETAMINOPHEN 1,000 MG/100 ML 100 ML IV PRN ×3 (04:27→18:37)
[2021-05-31 05:59] LABS: BASOPHILS # (AUTO) 0.1 10^3/uL (0.0-0.1); BASOPHILS % (AUTO) 0.4 %; EOSINOPHILS % (AUTO) 6.9 %; HCT - HEMATOCRIT 25.2 % (42.0-52.0); HGB - HEMOGLOBIN 7.4 g/dL (14.0-18.0); LYMPHOCYTES % (AUTO) 7.3 %; MEAN CORPUSCULAR HEMOGLOBIN 27.1 pg (27.0-31.0); MEAN CORPUSCULAR HGB CONC 29.4 g/dL (32.0-36.0); MEAN CORPUSCULAR VOLUME 92.3 fL (80.0-94.0); MEAN PLATELET VOLUME 9.4 fL (7.4-11.4); MONOCYTES # (AUTO) 0.8 10^3/uL (0.0-1.0); MONOCYTES % (AUTO) 5.6 %; NEUTROPHILS # (AUTO) 10.8 10^3/uL (1.5-6.6); NEUTROPHILS % (AUTO) 77.8 %; NRBC ABSOLUTE COUNT (AUTO) 0.02 x10^3/uL; NUCLEATED RED BLOOD CELLS AUTO 0.1 /100WBC; PLT - PLATELET COUNT 338 10^3/uL (130-450); RED BLOOD COUNT 2.73 10^6/uL (4.70-6.10); RED CELL DISTRIBUTION WIDTH 15.3 % (12.0-15.0); WHITE BLOOD COUNT 13.8 x10^3/uL (4.8-10.8)
[2021-05-31 06:09] LABS: CALCIUM 7.6 mg/dL (8.5-10.3); CREATININE 0.5 mg/dL (0.6-1.2); POTASSIUM 3.7 mmol/L (3.5-5.0)
[2021-05-31] MEDS: metroNIDAZOLE 500 MG/100 ML 500 MG/100 ML BAG IV SCH ×3 (06:26→22:09)
[2021-05-31] MEDS: SODIUM CHLORIDE FLUSH 0.9% 10 ML SYRINGE IVP PRN (06:26)
[2021-05-31] MEDS: PANTOPRAZOLE 40 MG VIAL IVP SCH (06:26)
[2021-05-31] MEDS: SODIUM CHLORIDE 0.9% 1,000 ML IV SCH (06:34)
[2021-05-31] MEDS: FLUCONAZOLE 200 MG/100 ML 100 ML IV SCH (09:30)
[2021-05-31] MEDS: ENOXAPARIN 40 MG/0.4 ML SYRINGE SUBQ SCH (09:30)
[2021-05-31] MEDS: SODIUM CHLORIDE FLUSH 0.9% 10 ML SYRINGE IVP SCH ×2 (09:35→16:17)
[2021-05-31] MEDS: CEFEPIME 2 GM in SODIUM CHLORIDE 0.9% MINIBAG 100 ML IV SCH ×2 (10:48→21:23)
[2021-05-31] MEDS: BENZOCAINE/MENTHOL LOZENGE MM PRN (11:44)
[2021-05-31] MEDS: guaiFENesin 100 MG/5 ML UDC PO PRN (11:44)
[2021-05-31] MEDS: BENZONATATE 100 MG CAPSULE PO PRN ×2 (11:44→18:37)
--- NOTE | 2021-05-31 15:42 | PROVIDER PROGRESS NOTE ---
Subjective - Prog Note Date Prog Note Date: 05/31/21 - Subjective Pt reports feeling: Improved (passing gas. appetite improving. no nausea) Objective - Vital Signs/Intake & Output Reviewed Vital Signs: Yes Vital Signs: Vital Signs x48h Temp Pulse Resp BP Pulse Ox 05/31/21 11:47 37.3 C 72 22 153/73 H 97 05/31/21 07:58 36.8 C 76 24 155/74 H 99 Intake & Output: Intake & Output 05/28/21 05/29/21 05/30/21 05/31/21 23:59 23:59 23:59 23:59 Intake Total 3569.25 3817.5 6290.00 3152.583 Output Total 2730 1535 1610 2111 Balance 839.25 2282.5 4680.00 1041.583 - Objective General Appearance: positive: No acute distress, Alert Eyes Bilateral: positive: PERRL, EOMI, No scleral icterus Neck: positive: No JVD Respiratory: positive: No respiratory distress Abdomen: positive: Non-tender, No distention, Other (no erythema. monique out thiner today. nearly thin serous) Neurologic/Psychiatric: positive: Oriented x3 - Lab Results Fish Bones: 05/31/21 05:51 05/31/21 05:51 Other Labs: Lab Results x24hrs 05/31/21 05/31/21 05/31/21 Range/Units 11:24 06:08 05:51 WBC (4.8-10.8) x10^3/uL RBC (4.70-6.10) 10^6/uL Hgb (14.0-18.0) g/dL Hct (42.0-52.0) % MCV (80.0-94.0) fL MCH (27.0-31.0) pg MCHC (32.0-36.0) g/dL RDW (12.0-15.0) % Plt Count (130-450) 10^3/uL MPV (7.4-11.4) fL Neut # (Auto) (1.5-6.6) 10^3/uL Lymph # (Auto) (1.5-3.5) 10^3/uL [place] # (Auto) (0.0-1.0) 10^3/uL Eos # (Auto) (0.0-0.7) 10^3/uL Baso # (Auto) (0.0-0.1) 10^3/uL Absolute Nucleated RBC x10^3/uL Nucleated RBC % /100WBC Sodium 133 L (135-145) mmol/L Potassium 3.7 (3.5-5.0) mmol/L Chloride 99 L (101-111) mmol/L Carbon Dioxide 27 (21-32) mmol/L Anion Gap 7.0 (6-13) BUN 12 (6-20) mg/dL Creatinine 0.5 L (0.6-1.2) mg/dL Estimated GFR (MDRD) 163 (>89) Glucose 128 H (70-100) mg/dL POC Whole Bld Glucose 102 H 129 H (70 - 100) mg/dL Calcium 7.6 L (8.5-10.3) mg/dL 05/31/21 05/30/21 05/30/21 Range/Units 05:51 23:44 17:51 WBC 13.8 H (4.8-10.8) x10^3/uL RBC 2.73 L (4.70-6.10) 10^6/uL Hgb 7.4 L (14.0-18.0) g/dL Hct 25.2 L (42.0-52.0) % MCV 92.3 (80.0-94.0) fL MCH 27.1 (27.0-31.0) pg MCHC 29.4 L (32.0-36.0) g/dL RDW 15.3 H (12.0-15.0) % Plt Count 338 (130-450) 10^3/uL MPV 9.4 (7.4-11.4) fL Neut # (Auto) 10.8 H (1.5-6.6) 10^3/uL Lymph # (Auto) 1.0 L (1.5-3.5) 10^3/uL [place] # (Auto) 0.8 (0.0-1.0) 10^3/uL Eos # (Auto) 1.0 H (0.0-0.7) 10^3/uL Baso # (Auto) 0.1 (0.0-0.1) 10^3/uL Absolute Nucleated RBC 0.02 x10^3/uL Nucleated RBC % 0.1 /100WBC Sodium (135-145) mmol/L Potassium (3.5-5.0) mmol/L Chloride (101-111) mmol/L Carbon Dioxide (21-32) mmol/L Anion Gap (6-13) BUN (6-20) mg/dL Creatinine (0.6-1.2) mg/dL Estimated GFR (MDRD) (>89) Glucose (70-100) mg/dL POC Whole Bld Glucose 119 H 131 H (70 - 100) mg/dL Calcium (8.5-10.3) mg/dL Assessment/Plan - Problem List (1) Perforated abdominal viscus Impression: clinically improving although wbc up today. diet soft. Plan follow wbc. If continues to go up plan ct scan abd and pelvis with c ontrast. If WBC improves ? home with tpn appreciate nutrition following and recommendations
--- NOTE | 2021-05-31 15:49 | MISCELLANEOUS PROVIDER NOTE ---
Miscellaneous Provider Note - - Note: Discussed patient with Dr Sánchez. Pt has been stable and with no active medical problems save for surgical management provided by general surgery. At this time, hospitalist service will sign off. We thank Dr Sánchez for allowing us the opportunity to serve this patient and remain available to re-engage should the need arise. Omid Silva MD
[2021-05-31] MEDS: TPN (CLINIMIX E 5/15) 2,000 ML with MULTIVITAMIN 10 ML, TRACE ELEMENTS 1 ML IV SCH ×3 (18:43)
[2021-05-31] MEDS: FAT EMULSION 20% 250 ML IV SCH (18:43)
[2021-06-01] MEDS: oxyCODONE 5 MG TABLET PO PRN ×5 (00:17→21:39)
[2021-06-01] MEDS: SODIUM CHLORIDE FLUSH 0.9% 10 ML SYRINGE IVP SCH ×3 (00:18→16:07)
[2021-06-01] MEDS: ACETAMINOPHEN 1,000 MG/100 ML 100 ML IV PRN ×4 (00:54→18:58)
[2021-06-01 05:24] LABS: BASOPHILS # (AUTO) 0.1 10^3/uL (0.0-0.1); BASOPHILS % (AUTO) 0.3 %; EOSINOPHILS # (AUTO) 0.8 10^3/uL (0.0-0.7); EOSINOPHILS % (AUTO) 4.5 %; HCT - HEMATOCRIT 24.7 % (42.0-52.0); HGB - HEMOGLOBIN 7.4 g/dL (14.0-18.0); LYMPHOCYTES # (AUTO) 1.1 10^3/uL (1.5-3.5); LYMPHOCYTES % (AUTO) 6.2 %; MEAN CORPUSCULAR HEMOGLOBIN 27.2 pg (27.0-31.0); MEAN CORPUSCULAR VOLUME 90.8 fL (80.0-94.0); MEAN PLATELET VOLUME 9.7 fL (7.4-11.4); MONOCYTES # (AUTO) 0.8 10^3/uL (0.0-1.0); MONOCYTES % (AUTO) 4.7 %; NEUTROPHILS % (AUTO) 81.4 %; PLT - PLATELET COUNT 394 10^3/uL (130-450); RED BLOOD COUNT 2.72 10^6/uL (4.70-6.10); RED CELL DISTRIBUTION WIDTH 15.3 % (12.0-15.0); WHITE BLOOD COUNT 17.2 x10^3/uL (4.8-10.8)
[2021-06-01 05:44] LABS: ALBUMIN 1.8 g/dL (3.2-5.5); ALBUMIN/GLOBULIN RATIO 0.5 (1.0-2.2); BILIRUBIN,TOTAL 0.4 mg/dL (0.2-1.0); CALCIUM 7.7 mg/dL (8.5-10.3); CREATININE 0.4 mg/dL (0.6-1.2); MAGNESIUM 1.8 mg/dL (1.7-2.8); PHOSPHORUS 2.8 mg/dL (2.5-4.6); POTASSIUM 3.8 mmol/L (3.5-5.0); TOTAL PROTEIN 5.3 g/dL (6.7-8.2)
[2021-06-01] MEDS: PANTOPRAZOLE 40 MG VIAL IVP SCH (06:43)
[2021-06-01] MEDS: SODIUM CHLORIDE FLUSH 0.9% 10 ML SYRINGE IVP PRN (06:43)
[2021-06-01] MEDS: metroNIDAZOLE 500 MG/100 ML 500 MG/100 ML BAG IV SCH ×3 (07:11→22:24)
[2021-06-01] MEDS ORDERED: IOVERSOL 320 100 ML VIAL IVP ONE ×2 (11:03→18:01)
[2021-06-01] MEDS ORDERED: IOVERSOL 320 50 ML VIAL ONE (11:38)
[2021-06-01] MEDS: CEFEPIME 2 GM in SODIUM CHLORIDE 0.9% MINIBAG 100 ML IV SCH ×2 (11:41→21:43)
[2021-06-01] MEDS: ENOXAPARIN 40 MG/0.4 ML SYRINGE SUBQ SCH (11:53)
[2021-06-01] MEDS: FLUCONAZOLE 100 MG TABLET PO SCH (11:53)
--- NOTE | 2021-06-01 13:00 | PROVIDER PROGRESS NOTE ---
Subjective - Prog Note Date Prog Note Date: 06/01/21 - Subjective Pt reports feeling: Improved (tolerating diet better) Objective - Vital Signs/Intake & Output Reviewed Vital Signs: Yes Vital Signs: Vital Signs x48h Temp Pulse Resp BP Pulse Ox 06/01/21 10:57 36.6 C 73 26 H 141/77 H 98 Intake & Output: Intake & Output 05/29/21 05/30/21 05/31/21 06/01/21 23:59 23:59 23:59 23:59 Intake Total 3817.5 6290.00 5639.450 690 Output Total 1535 1610 2981 1615 Balance 2282.5 4680.00 5388.450 925 - Objective General Appearance: positive: No acute distress, Alert Eyes Bilateral: positive: PERRL, EOMI, No scleral icterus Neck: positive: No JVD Respiratory: positive: No respiratory distress Abdomen: positive: Non-tender, No distention, Other (monique serous no erythema) Neurologic/Psychiatric: positive: Oriented x3 - Lab Results Fish Bones: 06/01/21 05:17 06/01/21 05:17 Other Labs: Lab Results x24hrs 06/01/21 06/01/21 05/31/21 Range/Units 05:17 05:17 23:31 WBC 17.2 H (4.8-10.8) x10^3/uL RBC 2.72 L (4.70-6.10) 10^6/uL Hgb 7.4 L (14.0-18.0) g/dL Hct 24.7 L (42.0-52.0) % MCV 90.8 (80.0-94.0) fL MCH 27.2 (27.0-31.0) pg MCHC 30.0 L (32.0-36.0) g/dL RDW 15.3 H (12.0-15.0) % Plt Count 394 (130-450) 10^3/uL MPV 9.7 (7.4-11.4) fL Neut # (Auto) 14.0 H (1.5-6.6) 10^3/uL Lymph # (Auto) 1.1 L (1.5-3.5) 10^3/uL [place] # (Auto) 0.8 (0.0-1.0) 10^3/uL Eos # (Auto) 0.8 H (0.0-0.7) 10^3/uL Baso # (Auto) 0.1 (0.0-0.1) 10^3/uL Absolute Nucleated RBC 0.00 x10^3/uL Nucleated RBC % 0.0 /100WBC Sodium 135 (135-145) mmol/L Potassium 3.8 (3.5-5.0) mmol/L Chloride 101 (101-111) mmol/L Carbon Dioxide 26 (21-32) mmol/L Anion Gap 8.0 (6-13) BUN 12 (6-20) mg/dL Creatinine 0.4 L (0.6-1.2) mg/dL Estimated GFR (MDRD) 211 (>89) Glucose 131 H (70-100) mg/dL POC Whole Bld Glucose 104 H (70 - 100) mg/dL Calcium 7.7 L (8.5-10.3) mg/dL Phosphorus 2.8 (2.5-4.6) mg/dL Magnesium 1.8 (1.7-2.8) mg/dL Total Bilirubin 0.4 (0.2-1.0) mg/dL AST 11 (10-42) IU/L ALT 11 (10-60) IU/L Alkaline Phosphatase 164 H (42-121) IU/L Total Protein 5.3 L (6.7-8.2) g/dL Albumin 1.8 L (3.2-5.5) g/dL Globulin 3.5 (2.1-4.2) g/dL Albumin/Globulin Ratio 0.5 L (1.0-2.2) Prealbumin 10 L (18-45) mg/dL Triglycerides 105 ( - 149) mg/dL 05/31/21 Range/Units 17:59 WBC (4.8-10.8) x10^3/uL RBC (4.70-6.10) 10^6/uL Hgb (14.0-18.0) g/dL Hct (42.0-52.0) % MCV (80.0-94.0) fL MCH (27.0-31.0) pg MCHC (32.0-36.0) g/dL RDW (12.0-15.0) % Plt Count (130-450) 10^3/uL MPV (7.4-11.4) fL Neut # (Auto) (1.5-6.6) 10^3/uL Lymph # (Auto) (1.5-3.5) 10^3/uL [place] # (Auto) (0.0-1.0) 10^3/uL Eos # (Auto) (0.0-0.7) 10^3/uL Baso # (Auto) (0.0-0.1) 10^3/uL Absolute Nucleated RBC x10^3/uL Nucleated RBC % /100WBC Sodium (135-145) mmol/L Potassium (3.5-5.0) mmol/L Chloride (101-111) mmol/L Carbon Dioxide (21-32) mmol/L Anion Gap (6-13) BUN (6-20) mg/dL Creatinine (0.6-1.2) mg/dL Estimated GFR (MDRD) (>89) Glucose (70-100) mg/dL POC Whole Bld Glucose 135 H (70 - 100) mg/dL Calcium (8.5-10.3) mg/dL Phosphorus (2.5-4.6) mg/dL Magnesium (1.7-2.8) mg/dL Total Bilirubin (0.2-1.0) mg/dL AST (10-42) IU/L ALT (10-60) IU/L Alkaline Phosphatase (42-121) IU/L Total Protein (6.7-8.2) g/dL Albumin (3.2-5.5) g/dL Globulin (2.1-4.2) g/dL Albumin/Globulin Ratio (1.0-2.2) Prealbumin (18-45) mg/dL Triglycerides ( - 149) mg/dL Assessment/Plan - Problem List (1) Perforated abdominal viscus Impression: clinically improving; however, wbc up. Plan ct abdomen and pelvis rule out abscess.
[2021-06-01] MEDS: BENZONATATE 100 MG CAPSULE PO PRN ×2 (16:07→21:39)
--- NOTE | 2021-06-01 16:24 | CT Report ---
PROCEDURE: Abdomen/Pelvis W INDICATIONS: elevated wbc. hx perforated ulcer surgery CONTRAST: IV CONTRAST: Optiray 320 ml: 100 PO CONTRAST: Optiray 320 ml50 TECHNIQUE: After the administration of intravenous and oral contrast, 5 mm thick sections acquired from the diap hragms to the symphysis. 5 mm thick coronal and sagittal reformats were acquired. For radiation dos e reduction, the following was used: automated exposure control, adjustment of mA and/or kV accordin g to patient size. COMPARISON: CT abdomen pelvis 05/28/2021, 05/22/2021. FINDINGS: Image quality: There is metallic streak artifact secondary to patient's left hip prosthesis limiting evaluation. ABDOMEN: Lung bases: There is a moderate left pleural effusion with associated passive atelectasis in the left lower lobe. Findings appear increased compared to the prior study. Heart size is normal. There is a small pericardial effusion which appears similar in size compared to the prior study. Solid organs: Evaluation of the liver demonstrates no focal hepatic lesions. Gallbladder appears wit hin normal limits without calcified gallstones. Biliary system is non dilated. The spleen is normal in size. Pancreas demonstrates no discrete pancreatic mass or pancreatic duct dilatation. The uncinat e process of the pancreas abuts the large kezia mass. No adrenal nodules. Kidneys demonstrate no hyd ronephrosis. Peritoneum and bowel: There is a crescentic peripherally enhancing left subdiaphragmatic loculated f luid collection. This measures up to 10.0 cm in transverse extent by 11.5 cm in anteroposterior exten t by approximately 2.0 cm in maximal thickness. The collection is contiguous with the superior aspect of the stomach and spleen as well as the left hemidiaphragm. There is a small to moderate amount of dependent fluid redemonstrated within the pelvis without a definite peripheral enhancing wall to sugg est a discrete abscess. There is a small amount of free fluid within the left paracolic gutter. No in traperitoneal free air. Postsurgical changes are demonstrated along the anterior aspect of the stomach with associated mild w all thickening along an apparent gastrojejunal anastomosis. There is contrast distention of the stoma ch as well as prominent distention of the first through third portions of the duodenum. There is part ial encasement of the fourth portion of the duodenum by the kezia mass. There is contrast extending m ore distally throughout the small bowel. There is mild distention of the proximal jejunum. More dista l jejunal and ileal loops are nondistended. The colon demonstrates normal caliber and wall thickness. Colonic diverticulosis is present without acute diverticulitis. Nodes and vessels: A large confluent lobulated enhancing mass with partial encasement of the abdomin al aorta is redemonstrated. The mass measures up to approximately 13.8 x 13.3 x 12.7 cm in dimension, similar in size to the recent prior study given differences in technique. The mass demonstrates part ial encasement of the fourth portion of the duodenum. There is also mass effect on adjacent bowel loo ps which are displaced. Aorta and inferior vena cava are normal in size. Miscellaneous: There are postsurgical changes within the ventral abdominal wall with a midline surgi lilian incision and multiple surgical mia in the upper abdomen. A surgical drain is present with the tip in the right paracentral region anteriorly. No ventral hernias. PELVIS: Genitourinary: Bladder wall thickness is normal. Miscellaneous: No inguinal hernias or adenopathy. Bones: No suspicious bony lesions. No vertebral body compression fractures. IMPRESSION: 1. Crescentic peripherally enhancing left subdiaphragmatic collection consistent with an abscess as d escribed. 2. Lobulated mass in the mid abdomen partially encasing the aorta likely representing a large kezia m ass appears similar in size compared to the recent prior studies. This also demonstrates partial enca sement of the fourth portion of the duodenum with associated upstream dilatation of the duodenum comp atible with a partial obstruction. There is contrast extending more distally throughout the small bow el. 3. Postsurgical changes redemonstrated within the gastric wall consistent with recent surgical repair of perforated ulcer. Mild wall thickening along the surgical bed likely represents reactive changes. 4. Increase in a moderate left pleural effusion with associated left basilar compressive atelectasis. 5. Small to moderate amount of free fluid in the pelvis without definite peripherally enhancing wall to suggest a discrete abscess. Reviewed by: Francesco Uribe MD on 06/01/2021 4:23 PM PDT Approved by: Francesco Uribe MD on 06/01/2021 4:23 PM PDT Station ID: [id number]
[2021-06-01] MEDS ORDERED: IOVERSOL 320 50 ML VIAL PO ONE (18:01)
[2021-06-01] MEDS: FAT EMULSION 20% 250 ML IV SCH (18:43)
[2021-06-01] MEDS: TPN (CLINIMIX E 5/15) 2,000 ML with MULTIVITAMIN 10 ML, TRACE ELEMENTS 1 ML IV SCH ×3 (18:44)
[2021-06-01] MEDS: guaiFENesin 100 MG/5 ML UDC PO PRN (18:59)
[2021-06-01] MEDS: SODIUM CHLORIDE 0.9% 1,000 ML IV SCH (22:29)
[2021-06-02] MEDS: SODIUM CHLORIDE FLUSH 0.9% 10 ML SYRINGE IVP SCH ×4 (00:07→23:55)
[2021-06-02] MEDS: ACETAMINOPHEN 1,000 MG/100 ML 100 ML IV PRN ×3 (01:35→18:00)
[2021-06-02] MEDS: oxyCODONE 5 MG TABLET PO PRN ×6 (01:35→22:51)
[2021-06-02] MEDS: guaiFENesin 100 MG/5 ML UDC PO PRN ×3 (05:26→23:55)
[2021-06-02] MEDS: metroNIDAZOLE 500 MG/100 ML 500 MG/100 ML BAG IV SCH ×3 (05:26→22:26)
[2021-06-02 05:50] LABS: BASOPHILS # (AUTO) 0.1 10^3/uL (0.0-0.1); BASOPHILS % (AUTO) 0.3 %; EOSINOPHILS # (AUTO) 0.8 10^3/uL (0.0-0.7); EOSINOPHILS % (AUTO) 4.6 %; HCT - HEMATOCRIT 23.5 % (42.0-52.0); HGB - HEMOGLOBIN 7.1 g/dL (14.0-18.0); LYMPHOCYTES # (AUTO) 1.1 10^3/uL (1.5-3.5); LYMPHOCYTES % (AUTO) 6.3 %; MEAN CORPUSCULAR HEMOGLOBIN 27.4 pg (27.0-31.0); MEAN CORPUSCULAR HGB CONC 30.2 g/dL (32.0-36.0); MEAN CORPUSCULAR VOLUME 90.7 fL (80.0-94.0); MEAN PLATELET VOLUME 9.9 fL (7.4-11.4); MONOCYTES % (AUTO) 5.8 %; NEUTROPHILS # (AUTO) 13.6 10^3/uL (1.5-6.6); NEUTROPHILS % (AUTO) 81.2 %; PLT - PLATELET COUNT 414 10^3/uL (130-450); RED BLOOD COUNT 2.59 10^6/uL (4.70-6.10); RED CELL DISTRIBUTION WIDTH 15.3 % (12.0-15.0); WHITE BLOOD COUNT 16.7 x10^3/uL (4.8-10.8)
[2021-06-02 06:00] LABS: CALCIUM 7.5 mg/dL (8.5-10.3); CREATININE 0.4 mg/dL (0.6-1.2); POTASSIUM 3.8 mmol/L (3.5-5.0)
[2021-06-02] MEDS ORDERED: SODIUM CHLORIDE 0.9% MINIBAG 100 ML IV ONE (10:39)
[2021-06-02] MEDS: FLUCONAZOLE 100 MG TABLET PO SCH (10:41)
[2021-06-02] MEDS: PANTOPRAZOLE 40 MG VIAL IVP SCH (10:53)
[2021-06-02] MEDS: CEFEPIME 2 GM in SODIUM CHLORIDE 0.9% MINIBAG 100 ML IV SCH ×2 (10:53→21:45)
[2021-06-02] MEDS: ENOXAPARIN 40 MG/0.4 ML SYRINGE SUBQ SCH (10:54)
--- NOTE | 2021-06-02 11:56 | PROVIDER PROGRESS NOTE ---
Subjective - Prog Note Date Prog Note Date: 06/02/21 - Subjective Pt reports feeling: Improved (tolerating diet well. no nausea cough improving) Objective - Vital Signs/Intake & Output Reviewed Vital Signs: Yes Vital Signs: Vital Signs x48h Temp Pulse Resp BP Pulse Ox 06/02/21 08:00 37.2 C 91 24 159/85 H 96 Intake & Output: Intake & Output 05/30/21 05/31/21 06/01/21 06/02/21 23:59 23:59 23:59 23:59 Intake Total 6290.00 5639.450 4966.716 650 Output Total 1610 2981 2935 1600 Balance 4680.00 2658.450 2031.716 -950 - Objective General Appearance: positive: No acute distress, Alert Eyes Bilateral: positive: PERRL, EOMI, No scleral icterus ENT: positive: No signs of dehydration Neck: positive: No JVD Respiratory: positive: No respiratory distress Abdomen: positive: Non-tender, No distention, Other (monique serous. no erythema) Neurologic/Psychiatric: positive: Oriented x3 - Lab Results Fish Bones: 06/02/21 05:30 06/02/21 05:30 Other Labs: Lab Results x24hrs 06/02/21 06/02/21 06/02/21 Range/Units 05:30 05:30 00:01 WBC 16.7 H (4.8-10.8) x10^3/uL RBC 2.59 L (4.70-6.10) 10^6/uL Hgb 7.1 L (14.0-18.0) g/dL Hct 23.5 L (42.0-52.0) % MCV 90.7 (80.0-94.0) fL MCH 27.4 (27.0-31.0) pg MCHC 30.2 L (32.0-36.0) g/dL RDW 15.3 H (12.0-15.0) % Plt Count 414 (130-450) 10^3/uL MPV 9.9 (7.4-11.4) fL Neut # (Auto) 13.6 H (1.5-6.6) 10^3/uL Lymph # (Auto) 1.1 L (1.5-3.5) 10^3/uL Day # (Auto) 1.0 (0.0-1.0) 10^3/uL Eos # (Auto) 0.8 H (0.0-0.7) 10^3/uL Baso # (Auto) 0.1 (0.0-0.1) 10^3/uL Absolute Nucleated RBC 0.00 x10^3/uL Nucleated RBC % 0.0 /100WBC Sodium 134 L (135-145) mmol/L Potassium 3.8 (3.5-5.0) mmol/L Chloride 101 (101-111) mmol/L Carbon Dioxide 27 (21-32) mmol/L Anion Gap 6.0 (6-13) BUN 14 (6-20) mg/dL Creatinine 0.4 L (0.6-1.2) mg/dL Estimated GFR (MDRD) 211 (>89) Glucose 112 H (70-100) mg/dL POC Whole Bld Glucose 117 H (70 - 100) mg/dL Calcium 7.5 L (8.5-10.3) mg/dL 06/01/21 Range/Units 17:53 WBC (4.8-10.8) x10^3/uL RBC (4.70-6.10) 10^6/uL Hgb (14.0-18.0) g/dL Hct (42.0-52.0) % MCV (80.0-94.0) fL MCH (27.0-31.0) pg MCHC (32.0-36.0) g/dL RDW (12.0-15.0) % Plt Count (130-450) 10^3/uL MPV (7.4-11.4) fL Neut # (Auto) (1.5-6.6) 10^3/uL Lymph # (Auto) (1.5-3.5) 10^3/uL Day # (Auto) (0.0-1.0) 10^3/uL Eos # (Auto) (0.0-0.7) 10^3/uL Baso # (Auto) (0.0-0.1) 10^3/uL Absolute Nucleated RBC x10^3/uL Nucleated RBC % /100WBC Sodium (135-145) mmol/L Potassium (3.5-5.0) mmol/L Chloride (101-111) mmol/L Carbon Dioxide (21-32) mmol/L Anion Gap (6-13) BUN (6-20) mg/dL Creatinine (0.6-1.2) mg/dL Estimated GFR (MDRD) (>89) Glucose (70-100) mg/dL POC Whole Bld Glucose 121 H (70 - 100) mg/dL Calcium (8.5-10.3) mg/dL Assessment/Plan - Problem List (1) Perforated abdominal viscus Impression: wbc down today. benign abdomen. cough improved. continue present care. possibly home tomorrow if remains afebrile and wbc improving. We discussed he has near proximal bowel obstruction and should see a surgical oncologist soon. He may need further surgery or feeding j tube
[2021-06-02] MEDS: BENZONATATE 100 MG CAPSULE PO PRN (16:51)
[2021-06-02] MEDS: ONDANSETRON 4 MG/2 ML VIAL IVP PRN (19:26)
[2021-06-03] MEDS: BENZOCAINE/MENTHOL LOZENGE MM PRN ×2 (00:12→05:31)
[2021-06-03] MEDS: ACETAMINOPHEN 1,000 MG/100 ML 100 ML IV PRN ×3 (01:33→18:58)
[2021-06-03] MEDS: PANTOPRAZOLE 40 MG VIAL IVP SCH (05:30)
[2021-06-03] MEDS: SODIUM CHLORIDE FLUSH 0.9% 10 ML SYRINGE IVP SCH ×2 (05:30→18:58)
[2021-06-03] MEDS: metroNIDAZOLE 500 MG/100 ML 500 MG/100 ML BAG IV SCH ×2 (05:30→14:46)
[2021-06-03] MEDS: BENZONATATE 100 MG CAPSULE PO PRN (05:31)
[2021-06-03] MEDS: oxyCODONE 5 MG TABLET PO PRN ×3 (05:31→17:08)
[2021-06-03] MEDS: SODIUM CHLORIDE FLUSH 0.9% 10 ML SYRINGE IVP PRN (05:31)
[2021-06-03] MEDS: ENOXAPARIN 40 MG/0.4 ML SYRINGE SUBQ SCH (10:04)
[2021-06-03] MEDS: FLUCONAZOLE 100 MG TABLET PO SCH (10:05)
[2021-06-03] MEDS: CEFEPIME 2 GM in SODIUM CHLORIDE 0.9% MINIBAG 100 ML IV SCH (10:05)
[2021-06-03] MEDS: guaiFENesin 100 MG/5 ML UDC PO PRN ×2 (10:40→18:59)
--- NOTE | 2021-06-03 11:51 | Discharge Plan ---
Discharge Plan Problem Reviewed?: Yes Disposition: Home, Self Care Diet: Soft Activity Restrictions: Activity as Tolerated Shower Restrictions: No Driving Restrictions: No Health Concerns: mass abdomen and recent stomach rupture Plan of Treatment: diet as tolerated drain care follow up surgery office. please call to make an appointment [phone] Assessment: Home in good/ stable condition Home with oral antibiotics, nausea medication, pain medication, and close follow up Additional Instructions or Follow Up instructions: recommend you see a surgical oncologist in addition to follow up surgery [facility]. No Smoking: If you smoke, Please STOP! Call for help. Follow-up with: SONIA LEIVA MD [Primary Care Provider] -
--- NOTE | 2021-06-03 11:59 | DISCHARGE SUMMARY ---
"Discharge Summary Admit Date: 05/22/21 Discharge Date: 06/03/21 Discharging Provider: marielle oh md Code Status: Attempt Resuscitation Condition at Discharge: Fair Discharge Facility Name: [facility] - DIAGNOSES Admission Diagnoses: abdominal mass ruptured stomach Discharge Diagnoses with Status of Each Condition: home in good to fair condition - HPI History of Present Illness: History tumor abdomen and prior surgery. Present with intestinal rupture and had surgery 05/22/2021 to repair perforated ulcer - CONSULTS | PROCEDURES Procedures: surgery to repair perforated ulcer PICC line TPN - HOSPITAL COURSE Hospital Course: Daily improved. Home 06/03/2021 afebrile, tolerating diet, cough improved, minimal abdominal discomfort, no abdominal distension. Home with drain and close follow up surgery office - ALLERGIES Allergies/Adverse Reactions: Allergies Allergy/AdvReac Type Severity Reaction Status Date / Time No Known Drug Allergies Allergy Verified 05/22/21 20:09 - MEDICATIONS Home Medications: Ambulatory Orders Medication Instructions Recorded Confirmed Amox/Clav 875/125 [Augmentin 1 tablet PO Q8H 10 Days #30 tablet 06/03/21 875/125 Tab] Ondansetron Odt [Zofran Odt] 4 mg PO Q6H PRN #60 tablet 06/03/21 oxyCODONE/ACET 5/325 [Percocet 5 1 each PO Q4-6H PRN #42 tablet 06/03/21 mg/325 mg] - PHYSICAL EXAM AT DISCHARGE General Appearance: positive: No acute distress, Alert Eyes Bilateral: positive: PERRL, EOMI, No scleral icterus ENT: positive: No signs of dehydration Neck: positive: No JVD Respiratory: positive: No respiratory distress Abdomen: positive: Non-tender, No distention, Other (drain thin mostly clear) Neurologic/Psychiatric: positive: Oriented x3 - LABS Result Diagrams: 06/02/21 05:30 06/02/21 05:30 - DIAGNOSTIC IMAGING Diagnostic Imaging Results: Read independently - FOLLOW UP Follow Up: Surgery office. Please call to make an appointment Please call for vomiting, fevers over 101, any concerns [phone]"
[2021-06-03 19:59] VITALS: BP 135/69
== END 2021-06-03 20:10 | disposition home or self-care (01) | DRG 326 ==
LOC: EDUNIT# → ED 19:56 → SDS 23:04 → ICU 05-23 00:41 → MS3 05-26 19:43
PROVIDERS: ADMIT Surgery; ATTEND Surgery
PROC: 0DU707Z Supplement Stomach, Pylorus with Autologous Tissue Substitute, Open Approach (ICD-10-PCS; principal; 2021-05-23)
PROC: 0WBH0ZX Excision of Retroperitoneum, Open Approach, Diagnostic (ICD-10-PCS; 2021-05-23)
PROC: 02HV33Z Insertion of Infusion Device into Superior Vena Cava, Percutaneous Approach (ICD-10-PCS; 2021-05-23)
PROC: 3E0436Z Introduction of Nutritional Substance into Central Vein, Percutaneous Approach (ICD-10-PCS; 2021-05-25)
DX: K31.89 Other diseases of stomach and duodenum (principal); K25.1 Acute gastric ulcer with perforation; K56.609 Unspecified intestinal obstruction, unspecified as to partial versus complete obstruction; K57.30 Diverticulosis of large intestine without perforation or abscess without bleeding; K65.1 Peritoneal abscess; Z98.890 Other specified postprocedural states; E43 Unspecified severe protein-calorie malnutrition; Z20.822 Contact with and (suspected) exposure to COVID-19; B96.20 Unspecified Escherichia coli [E. coli] as the cause of diseases classified elsewhere; B96.1 Klebsiella pneumoniae [K. pneumoniae] as the cause of diseases classified elsewhere; R19.09 Other intra-abdominal and pelvic swelling, mass and lump; Z98.0 Intestinal bypass and anastomosis status; D64.9 Anemia, unspecified; E87.70 Fluid overload, unspecified; K42.9 Umbilical hernia without obstruction or gangrene; I10 Essential (primary) hypertension; R25.1 Tremor, unspecified; Z68.30 Body mass index [BMI] 30.0-30.9, adult; Z96.649 Presence of unspecified artificial hip joint; Z87.891 Personal history of nicotine dependence
CPT/HCPCS: 36415; 71045; 71046; 71275; 74018; 74176; 74177; 80048; 80053; 82607; 82728; 82746; 83540; 83605; 83615; 83690; 83735; 84100; 84134; 84466; 84478; 84484; 85025; 85045; 86850; 86900; 86901; 86920; 87040; 87070; 87077; 87150; 87181; 87205; 87631; 93005; 96365; 96375; 96376; 99284; 99285; A9270; C1751; J0131; J1170; J1200; J1650; J3490; J7120; P9016; Q9967; 0202U

== ENCOUNTER 2021-08-17 15:20 | Outpatient (CLI) | payer MEDICARE, OTHER ==
[2021-08-17 15:54] LABS: HCT - HEMATOCRIT 24.1 % (42.0-52.0); HGB - HEMOGLOBIN 7.2 g/dL (14.0-18.0); MEAN CORPUSCULAR HGB CONC 29.9 g/dL (32.0-36.0); MEAN PLATELET VOLUME 9.6 fL (7.4-11.4); NEUTROPHILS # (AUTO) 5.3 10^3/uL (1.5-6.6); NEUTROPHILS % (AUTO) 70.1 %; RED BLOOD COUNT 2.77 10^6/uL (4.70-6.10); RED CELL DISTRIBUTION WIDTH 17.2 % (12.0-15.0); WHITE BLOOD COUNT 7.5 x10^3/uL (4.8-10.8)
[2021-08-17 16:00] LABS: INR 1.3 (0.8-1.2); PT - PROTHROMBIN TIME 14.4 secs (9.9-12.6)
== END 2021-08-17 15:21 | disposition home or self-care (01) ==
LOC: LAB 15:20
PROVIDERS: ATTEND Internal Medicine Medical Oncology
DX: Z01.812 Encounter for preprocedural laboratory examination (principal); C49.9 Malignant neoplasm of connective and soft tissue, unspecified
CPT/HCPCS: 36415; 85027; 85610; 85730

== ENCOUNTER 2021-11-15 13:26 | Outpatient (CLI) | payer MEDICARE, OTHER ==
[2021-11-15] MEDS ORDERED: IOVERSOL 320 50 ML VIAL ONE (13:44)
[2021-11-15] MEDS ORDERED: IOVERSOL 320 100 ML VIAL IVP ONE ×2 (13:44→15:59)
[2021-11-15 14:00] LABS: CREATININE 0.6 mg/dL (0.6-1.2)
[2021-11-15] MEDS ORDERED: IOVERSOL 320 50 ML VIAL PO ONE (15:59)
--- NOTE | 2021-11-15 17:06 | CT Report ---
PROCEDURE: CHEST W INDICATIONS: RETROPERITONEAL LIPOSARCOMA CONTRAST: IV CONTRAST: Optiray 320 ml: 100 PO CONTRAST: Optiray 320 ml50 TECHNIQUE: After the administration of intravenous contrast, 1 mm axial images were acquired from the pulmonary apices through the posterior costophrenic angles. Axial 5 mm soft tissue kernel reconstructions were performed as well as 8 mm axial MIP and coronal and sagittal 5 mm reformations. For radiation dose reduction, the following was used: automated exposure control, adjustment of mA and/or kV according to patient size. COMPARISON: CT chest 05/28/2021 FINDINGS: Image quality: Excellent. Lungs and pleura: No acute air space opacities. No pleural effusions or pneumothorax. Central and peripheral airways are patent and normal in caliber. Previous left basilar consolidation and effusio n has resolved. Small scattered pulmonary cysts are again noted stable. Mediastinum: Heart size is normal. There is a 2.2 cm pericardial effusion, slightly increased compar ed to 1.9 cm on prior exam.. No mediastinal or hilar adenopathy by size criteria. Thoracic aorta an d central pulmonary arteries are normal in size. Esophagus is normal in caliber. No hiatal hernia. Bones and chest wall: No suspicious bony lesions. No vertebral body compression fractures. No axil mavis or supraclavicular adenopathy by size criteria. The thyroid is normal in size and there are no incidental findings.. Abdomen: There is a partially visualized low-attenuation mass within the upper abdomen. Visualized u pper abdominal solid organs appear normal. Upper abdominal bowel loops are normal in caliber. IMPRESSION: No evidence of pulmonary metastatic disease. Partially visualized low-attenuation mass within the upper abdomen. Please see CT abdomen pelvis repo rt of 11/15/2021 for further details. CLINICAL RECOMMENDATION STATEMENTS: In patients <35 years with an ITN detected on CT, MRI, or extrathyroidal ultrasound, the Committee re commends further evaluation with dedicated thyroid ultrasound if the nodule is "e1 cm and has no susp icious imaging features, and if the patient has normal life expectancy. In patients "e35 years with an ITN detected on CT, MRI, or extrathyroidal ultrasound, the Committee r ecommends further evaluation with dedicated thyroid ultrasound if the nodule is "e1.5 cm and has no s uspicious imaging features, and if the patient has normal life expectancy. (ACR, 2014) Reviewed by: Paris Pool MD on 11/15/2021 5:05 PM PDT Approved by: Paris Pool MD on 11/15/2021 5:05 PM PDT Station ID: [id number]
--- NOTE | 2021-11-15 17:21 | CT Report ---
PROCEDURE: Abdomen/Pelvis W INDICATIONS: RETROPERITONEAL LIPOSARCOMA CONTRAST: IV CONTRAST: Optiray 320 ml: 100 PO CONTRAST: Optiray 320 ml50 TECHNIQUE: After the administration of oral and IV contrast, 5 mm thick sections acquired from the diaphragms to the symphysis. 5 mm thick coronal and sagittal reformats were acquired. For radiation dose reducti on, the following was used: automated exposure control, adjustment of mA and/or kV according to ricardo ent size. COMPARISON: CT abdomen pelvis 06/01/2021, 05/28/2021, 05/22/2021 FINDINGS: Image quality: There is limited visualization of the pelvis secondary to artifact from hip arthropla sty. ABDOMEN: Lung bases: Lung bases are clear. Heart size is normal. Parapharyngeal effusion is again noted. Solid organs: Liver is enlarged measuring 21.6 cm without focal lesion. The spleen is normal in size and enhancement. Gallbladder is unremarkable Biliary system is non dilated. Pancreas enhances nor blake. No adrenal nodules. Kidneys demonstrate normal size and enhancement, without hydronephrosis. Peritoneum and bowel: Bowel loops demonstrate normal wall thickness and caliber. No free fluid or a ir. Nodes and vessels: Previously identified heterogeneous mass within the abdomen has increased in size currently measuring 11.4 x 21.1 x 13.4 cm compared to 12.6 x 13.4 x 10.4 cm. It is more heterogeneous in appearance on current exam. There is a focus of air within the midportion. There is mild compress ion of surrounding bowel loops, without visualized obstruction. In addition, there is progressive enc asement of the aorta and vena cava compared to prior exam. Previous subdiaphragmatic fluid collection is no longer visualized. Miscellaneous: Bowel containing ventral hernia is present. PELVIS: Genitourinary: Bladder wall thickness is normal. Miscellaneous: No inguinal hernias or adenopathy. Bones: No suspicious bony lesions. No vertebral body compression fractures. IMPRESSION: 1. Interval increase in size of heterogeneous mass within the mid abdomen consistent with given histo ry of liposarcoma. There is progressive encasement of the aorta and inferior vena cava as well as mil d compression of surrounding bowel loops without structure. Reviewed by: Paris Pool MD on 11/15/2021 5:20 PM PDT Approved by: Paris Pool MD on 11/15/2021 5:20 PM PDT Station ID: [id number]
== END 2021-11-15 13:27 | disposition home or self-care (01) ==
LOC: DI 13:26
PROVIDERS: ATTEND Dietitian, Registered
DX: C48.0 Malignant neoplasm of retroperitoneum (principal)
CPT/HCPCS: 36415; 71260; 74177; 82565; Q9967

== ENCOUNTER 2021-12-17 14:12 | Outpatient (CLI) | payer MEDICARE, OTHER ==
[2021-12-17 14:28] LABS: BASOPHILS # (AUTO) 0.1 10^3/uL (0.0-0.1); BASOPHILS % (AUTO) 0.5 %; EOSINOPHILS # (AUTO) 8.3 10^3/uL (0.0-0.7); HCT - HEMATOCRIT 28.6 % (42.0-52.0); HGB - HEMOGLOBIN 9.4 g/dL (14.0-18.0); LYMPHOCYTES # (AUTO) 1.2 10^3/uL (1.5-3.5); LYMPHOCYTES % (AUTO) 4.1 %; MEAN CORPUSCULAR HEMOGLOBIN 30.7 pg (27.0-31.0); MEAN CORPUSCULAR HGB CONC 32.9 g/dL (32.0-36.0); MEAN CORPUSCULAR VOLUME 93.5 fL (80.0-94.0); MEAN PLATELET VOLUME 9.1 fL (7.4-11.4); MONOCYTES # (AUTO) 0.6 10^3/uL (0.0-1.0); MONOCYTES % (AUTO) 2.1 %; NEUTROPHILS % (AUTO) 47.1 %; PLT - PLATELET COUNT 179 10^3/uL (130-450); RED BLOOD COUNT 3.06 10^6/uL (4.70-6.10); RED CELL DISTRIBUTION WIDTH 20.6 % (12.0-15.0); WHITE BLOOD COUNT 29.7 x10^3/uL (4.8-10.8)
[2021-12-17 14:43] LABS: ALBUMIN 2.4 g/dL (3.2-5.5); ALBUMIN/GLOBULIN RATIO 0.6 (1.0-2.2); ALKALINE PHOSPHATASE 81 IU/L (42-121); ALT ALANINE AMINOTRANSFERASE 11 IU/L (10-60); AST ASPARTATE AMINOTRANSFERASE < 10 IU/L (10-42); BILIRUBIN,TOTAL 0.5 mg/dL (0.2-1.0); BUN - BLOOD UREA NITROGEN 15 mg/dL (6-20); CALCIUM 8.6 mg/dL (8.5-10.3); CARBON DIOXIDE - CO2 25 mmol/L (21-32); CHLORIDE 97 mmol/L (101-111); CREATININE 0.5 mg/dL (0.6-1.2); GFR - MDRD 163 (>89); GLUCOSE 108 mg/dL (70-100); POTASSIUM 4.5 mmol/L (3.5-5.0); SODIUM 131 mmol/L (135-145); TOTAL PROTEIN 6.3 g/dL (6.7-8.2)
[2021-12-17 16:12] LABS: PLATELET ESTIMATE, MANUAL NORMAL (130-450,000) (NORMAL); PLATELET MORPHOLOGY NORMAL APPEARANCE (NORMAL)
[2021-12-17 16:13] LABS: DIFFERENTIAL COMMENT MANUAL=AUTO DIFF
== END 2021-12-17 14:13 | disposition home or self-care (01) ==
LOC: LAB 14:12
PROVIDERS: ATTEND Dietitian, Registered
DX: C49.9 Malignant neoplasm of connective and soft tissue, unspecified (principal)
CPT/HCPCS: 36415; 80053; 85025

== ENCOUNTER 2021-12-22 11:00 | Outpatient (CLI) | payer MEDICARE, OTHER ==
--- NOTE | 2021-12-22 16:45 | CONSULTATION NOTE ---
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 He presented in in 2019, with vomiting of blood. He was in [place] at the time, providing services at the [facility], and was sent [place] a [place] [facility] in [place]. He reports he had a large retroperitoneal mass that was causing obstruction to his bowel, and was biopsied at that time. Unfortunately it was into occlusive, and underwent a jejunostomy to bypass the portion that was bleeding. He did return after several months, had been supported with TPN and by his nurse daughter. On his return, he presented again 05/22/2021 with continued weight loss, worsening escalating pain, and was found to have free intraperitoneal air consistent with a perforated viscus, and on imaging had a large mass nearly obstructing involving the third/fourth portions of the duodenum and underwent biopsy at that time.He was referred to [facility], where he underwent another diversion with a gastrojejunostomy, and another nondiagnostic biopsy. 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 He is currently on prophylactic antibiotics, but continues to have rising WBC and neutrophils. He denies fever or chills, but does have hot flashes frequently, and has continued to deteriorate. He was offered palliative treatment of Ibrance, which he accepted though clinically has not had a response. Patient continues with increasing abdominal pain, poor appetite, declining functional status, and does have awareness of his imminent decline. Palliative care meeting patient for the first time, to evaluate current quality of life issues, patient reports he is "ready to go" he is very miserable. He reports he is up frequently pain, he is having severe difficulties with constipation and bowel movements, he has low-grade nausea constantly and has continued with weight loss. He reports he has good days and bad days, but sees himself as with limited time. He did get an informational hospice visit, at that point in time he declined. Patient that would be appropriate, particularly given the uncertainty of his perforation, and high likelihood of getting septic. He reports some of the hesitancy is his Jaquelin, she does not perceive he is going to , she is from [facility] they have been for 27 years. He reports this is very hard on him, she does not acknowledge his eminent decline, and he feels like he is ready to go, he does have Uatsdin peggy and is not afraid of dying. Medical/Surgical History - Past Medical History Cardiovascular: reports: Hypertension Respiratory: reports: None Neuro: Migraines, Tremors Endocrine/Autoimmune: reports: None GI: reports: Ulcers, Chronic constipation : reports: Frequency HEENT: reports: Chronic vision loss Psych: reports: None Musculoskeletal: reports: Osteoarthritis, Fatigue Derm: reports: None MRSA Hx?: No - Past Surgical History General: reports: Gastric surgery, EGD, Other (port placement) Ortho: reports: Hip replacement /[employer]: reports: Other (Left hydrocele surgery) - Substance History Use: Uses substance without health or social issues: Tobacco (hx), Alcohol (had been drinking several shots a day; none since dx) Social History - Living Situation Living arrangement: At home Living Situation: With spouse/s.o. 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 One of his stations was [facility], thus he and his have lived here. This is his second marriage, they have been for 27 years. He is quite concerned about her lack of social support, reports she does have some synagogue friends, they have all been over "praying for me". She does have any family here in the states only in [facility]. He has made arrangements for friend when he dies, to come help her sort through the paperwork. He also has 2 daughters, who are coming from [place] and [place] tomorrow. Family History - Family History Family History: Mother: (88 in his sleep of old age), Cancer (77 ), Father: , Sister: Alive and Well, Brother: Alive and Well Medications/Allergies - Medications Home Medications: Ambulatory Orders Medication Instructions Recorded Confirmed Ondansetron Odt [Zofran Odt] 4 mg PO Q6H PRN #60 tablet 06/03/21 12/22/21 Amox/Clav 875/125 [Augmentin 1 tablet PO BID 12/22/21 12/22/21 875/125 Tab] Senna [Senokot] 1 tab PO BID MDD 8 12/22/21 12/22/21 oxyCODONE [Roxicodone] 5 - 10 mg PO Q4HR PRN 12/22/21 12/22/21 polyethylene glycoL 3350 [Miralax] 17 gm PO BID PRN MDD bid 12/22/21 12/22/21 - Allergies Allergies/Adverse Reactions: Allergies Allergy/AdvReac Type Severity Reaction Status Date / Time No Known Drug Allergies Allergy Verified 10/22/21 16:30 Review of Systems - Constitutional Constitutional: reports: Fatigue (worsening), Weakness, Poor appetite, Night sweats, Weight loss. denies: Fever, Chills - Eyes Eyes: reports: Vision loss - Ears, Nose & Throat Ears, Nose & Throat: reports: Dry mouth - Cardiovascular Cardiovascular: reports: Lightheadedness, Exertional dyspnea, Decr. exercise tolerance. denies: Edema - Respiratory Respiratory: reports: SOB with exertion. denies: Cough, SOB at rest - Gastrointestinal Gastrointestinal: reports: Abdominal pain, Constipation (bowels moved small amount hard stool with difficulty at visit), Nausea, Bloating, Poor appetite, Early satiety. denies: Rectal bleeding, Vomiting - Genitourinary Genitourinary: reports: Frequency - Musculoskeletal Musculoskeletal: reports: Back pain, Muscle aches, Stiffness, Limited range of motion (right shoulder), Muscle weakness, Assistive devices (has cane; walker is available from hip surgery) - Integumentary Integumentary: reports: Dryness - Neurological Neurological: reports: General weakness, Memory problems (mild) - Psychiatric Psychiatric: denies: Depression, Anxiety - Endocrine Endocrine: reports: Intolerance to cold - Hematologic/Lymphatic Hematologic/Lymph: reports: Anemia, Recurrent infections (abdominal) - All Other Systems All Other Systems: reports: Reviewed and negative Physical Exam - Vital Signs Temperature: 97.3 C Pulse Rate: 73 Respiratory Rate: 18 O2 Saturation: 99 (room air @ rest) Blood Pressure: 98/54 - Physical Exam General Appearance: positive: Alert, Mild distress, Cachetic Eyes Bilateral: positive: Normal inspection, No scleral icterus ENT: positive: Other (eyes sunken) Neck: positive: Trachea midline Cardiovascular: positive: Regular rate & rhythm Respiratory: positive: Diminished throughout. negative: Wheezes, Rales, Rhonchi Abdomen: positive: Nml bowel sounds, Tenderness, Other (abdominal hernia size of double grapefruits; soft and reducible but tender; ;umbilical hernial size of l alina soft and reducible). negative: Guarding Skin: positive: Pallor, Dryness Extremities: positive: No pedal edema, Other (gait slow and measured; appears weak) Neurologic/Psychiatric: positive: Oriented x3, Weakness, Depressed mood/affect, Flat affect Palliative Care - POLST Patient has POLST: Yes POLST Status: DNR, Selective Treatment Pain: Pain worsening, Location (abdominal;), Severity (2/10), Pattern (fluctuates in severity but persistent), Comment (using oxycodone 10 mg BID, doesn't want to be perceived as "bad" patient) Tiredness/Fatigue: Severe (7-10) Drowsiness/Sedation: Moderate (4-6) Nausea: Moderate (4-6) Anorexia: Severe (7-10), Weight loss Dyspnea: None Depression: Mild (1-3) Anxiety: Mild (1-3) Feelings of wellbeing/Perceived Quality of Life: Poor, Worsening Sleep: Variable sleep pattern (up frequently to void) Constipation: Yes, Opoid induced, Unmanaged Performance Status: Patient was driving over a month ago, now is only able to ambulate short distances, is using cane. We did review safety and recommended walker for balance and safety overall. He spends more than 75% of the time in the recliner, rest of the time in bed.He is set up on the lower level, because he can no longer do the stairs. - Palliative Care Discussion: Discussion centered on that patient is "ready to go", is very miserable. He does understand he has "6 months or less" but does perceive himself is rapidly declining and would like to just going to sleep. He is concerned about his Jaquelin, who is Arabic. She does not perceive that he is dying, nor will allow that story in. She thinks as long as he she feeds him, you that this will be his Lifeline, she is making him smoothies and gets him up to eat at 10:00 though he thinks he could probably sleep till 1.Patient reports his daughters are coming tomorrow, he does understand that they are coming to say their goodbyes, they are only staying for 3 or 4 days, they would not be able to help with his end-of-life care. He reports he is a Uatsdin, and reports this is been since the day he was born, he is not afraid of dying, he is worried about his , has made arrangements with her friend to try and help her navigate the system. He is somewhat distressed at that for 8 months since he had his tumor, until he got to [facility] that he did not receive any treatment, and feels like things are rapidly declining. He would like to have a at home, much of our discussion centered on how best to support Jaquelin, my recommendation is earlier hospice referral so they can get to know her and provide her support for that transition. He reports he does have funds to be able to hire some increased help, but she would not be able to navigate that. We discussed the role of the social services technician for hospice could assist with that as well as provide counseling and support. He did want to try the Ibrance, thus his decline of hospice plus he does not perceive himself is imminently dying. We discussed the role of hospice is to support his living until his , but finds his very resistant. We also discussed if he were transitioning quickly, as he does not want to linger, he certainly has a choice to quit eating and drinking as he does not have time to pursue with dignity.We did complete the POLST with DN AR/DNI we did put selective treatments in case he were to need another blood transfusion or other interventions that would not prolong his suffering but increase his quality of life. He does understand he is at high risk for getting septic, and most likely this will be his demise. Results - Lab Results Lab results reviewed: Yes Lab and Imaging Results: Labs drawn for his Ibrance 12/17, include a WBC of 29.7, neutrophils 14.0, hemoglobin 9.4, hematocrit 20.6, and 2.4 albumin Impression and Recommendations - Palliative Care Impression: This is a 71-year-old gentleman with known dedifferentiated liposarcoma, retroperitoneal sarcoma, and small bowel perforation with neutrophilic leukocytosis. He continues to do poorly, with high symptom burden of pain, nausea, constipation, and functional decline. Patient does understand the seri ousness of his illness, but in the context of his complexity with his and weighing benefits and burdens of continuing treatment it has been difficult. Palliative care providing initial visit for setting of rapport, pain and symptom management, psychosocial support, and anticipatory guidance. Recommendation to transition to hospice, will continue to assist patient with this transition as complex social situation with allows. Recommendations/Counseling Done: 1. Pain of neoplastic origin. Patient presents with worsening abdominal pain, fluctuates in severity but currently only taking oxycodone twice a day. In exploring barriers to this, does not want to be seen "is a bad patient" the does get significant relief. We did discuss in the context of oxycodone most likely only lasting 3 to 4 hours, would recommend increasing to at least 3 times daily and consider cues ID. Would recommend fentanyl patch transition secondary to expect patient will have increased difficulty with swallowing and absorption given his underlying disease process. Patient will continue sitter, but is willing to take more pain medication for better pain control. 2. Constipation. Patient struggling with hard stools, poor muscle tone, and decreasing intake. Patient has been instructed to take MiraLAX when it shows up, 1 capful twice daily until soft, then decrease to daily. Recommended increasing or adding senna 8.6 mg currently using Dulcolax, and schedule at least 1 tab twice a day, if no BM in 24 to 48 hours to increase to 2 tabs twice daily. Patient verbalized understanding and written instructions provided. 3. Anorexia. Patient with early satiety, low-grade and intermittent nausea, most likely multifactorial. Patient does not perceive ondansetron working well, is doing 1 twice daily with Compazine in between, patient denies any vomiting. He is drinking small amounts, his is making him "smoothies" and perceives this to be his Lifeline. Is very difficult for her to understand this is part of the natural process, patient is having ongoing weight loss and muscle wasting with this. 4. Generalized weakness. Patient is mostly recliner bound, would put him at a PPS of 40%. Is able to ambulate a short distance to the bathroom but gets quite exhausted. Counseling provided regarding the continuum of care, and recommendation at some point soon for hospital bed and commode, patient is somewhat resistant but does see the inevitability of this. Counseled to use walker when ambulating for balance and fall prevention. 5. Advance care planning. Patient does recognize the seriousness of his illness, and is quite surprised how quickly he is declining, he was functional 4 to 5 weeks ago and driving. We did discuss given the seriousness of his illness and the concern for approaching sepsis with elevated white count and declining immune system. He very much is quite miserable and "is ready to go". We did complete the POLST with DN AR/DNI but selective treatments in the context of willing go to the hospital for transfusions or reversible conditions though very much would like to have a at home. Does see this is coming s oon. Daughters are coming this weekend, to say goodbyes. Patient does not feel there is any other end-of-life business he has set up things for his . His biggest concern is for Jaquelin, and her lack of acceptance for the current situation and his impending . 75 minutes with greater than 50% of this done in counseling regarding goals of care, pain and symptom management, anticipatory guidance, coordination of care did provide hospice with heads up most likely will transition quickly. Plan to see patient on Monday for follow-up, hopefully willing or able to transition to hospice at that time.
== END 2021-12-22 11:01 | disposition home or self-care (01) ==
LOC: PC 11:00
PROVIDERS: ATTEND Nurse Practitioner Adult Health
DX: Z51.5 Encounter for palliative care (principal); G89.3 Neoplasm related pain (acute) (chronic); R63.4 Abnormal weight loss; Z63.79 Other stressful life events affecting family and household; C49.4 Malignant neoplasm of connective and soft tissue of abdomen; C48.0 Malignant neoplasm of retroperitoneum; D72.828 Other elevated white blood cell count; K63.1 Perforation of intestine (nontraumatic); R63.0 Anorexia; R11.0 Nausea; Z79.899 Other long term (current) drug therapy; Z79.891 Long term (current) use of opiate analgesic; Z66 Do not resuscitate; Z79.2 Long term (current) use of antibiotics; Z87.898 Personal history of other specified conditions; Z87.891 Personal history of nicotine dependence; K59.03 Drug induced constipation; T40.2X5A Adverse effect of other opioids, initial encounter; R53.83 Other fatigue; Z74.09 Other reduced mobility; R53.1 Weakness
CPT/HCPCS: 99345

== ENCOUNTER 2021-12-27 13:00 | Outpatient (CLI) | payer MEDICARE, OTHER ==
--- NOTE | 2021-12-27 17:34 | CONSULTATION NOTE ---
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 He is currently taking Ibrance, is been off this last week as it is a 1 through 21-day cycle, and has felt better. We had upped his oxycodone 10 mg to 3 times daily scheduled, and as needed with much improvement in pain overall. The still continues to have diffuse abdominal pain and discomfort. Patient supposedly had a CT scan of the abdomen/pelvis 11/15/2021 that showed small bowel perforation and free air around the intestine, consistent with perforation of bowel by tumor, though patient believes it has been "patched" by the surgeon Dr. Walsh. He has been on prophylactic antibiotics and has had rising WBC and neutrophils. He has had significant constipation, is doing better on the MiraLAX twice daily, and has been instructed on integrating senna into bowel program as well. He has not declined functionally more so since last visit, though is quite sedentary and mostly chair bound in his recliner. He is able to walk short distances to the bathroom but not upstairs or up for any prolonged period of time. He looks quite cachectic, but is eating and drinking, has had some intermittent nausea, and does have awareness of his seriousness of his illness. Patient he has 2 daughters, and son-in-law who came and visited this last weekend. He felt very good about this, he reports no angst and they had a good time everything went smoothly and able to say what they needed to. His is meeting with us today, she is [place], and has not really fully appreciated the seriousness of his illness, unfortunately it was a difficult conversation in the context that the treatment was not curative in intent, and patient was expected to continue to decline. Past Medical History: Hypertension, migraines, tremors, ulcers, chronic constipation, frequency urination, chronic vision loss, osteoarthritis, fatigue, right shoulder pain. GI bleeding presented in 2019 Social History - Living Situation Living arrangement: At home Living Situation: With spouse/s.o. Support System: . 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 One of his stations was would [employer], thus he and his have lived here and bought a home. This is his second marriage, they have been for 27 years. He is very concerned about her lack of social support, she does have some restorationist friends here. She does have family in [facility] [employer]. He has made arrangements for his friend to come help when he dies, a commitment was also made by his daughter to come also. Medications/Allergies - Medications Home Medications: Ambulatory Orders Medication Instructions Recorded Confirmed Ondansetron Odt [Zofran Odt] 4 mg PO Q6H PRN #60 tablet 06/03/21 12/27/21 Amox/Clav 875/125 [Augmentin 1 tablet PO BID 12/22/21 12/27/21 875/125 Tab] Senna [Senokot] 1 tab PO BID MDD 8 12/22/21 12/27/21 oxyCODONE [Roxicodone] 10 - 20 mg PO .Q3 PRN MDD 10 mg 12/22/21 12/27/21 tabs polyethylene glycoL 3350 [Miralax] 17 gm PO BID PRN MDD bid 12/22/21 12/27/21 Palbociclib [Ibrance] 125 mg PO .1-21 DAYS 12/27/21 12/27/21 - Allergies Allergies/Adverse Reactions: Allergies Allergy/AdvReac Type Severity Reaction Status Date / Time No Known Drug Allergies Allergy Verified 10/22/21 16:30 Review of Systems - Constitutional Constitutional: reports: Fatigue (worsening), Weakness, Poor appetite, Night sweats, Weight loss. denies: Fever, Chills - Eyes Eyes: reports: Vision loss - Ears, Nose & Throat Ears, Nose & Throat: reports: Dry mouth - Cardiovascular Cardiovascular: reports: Lightheadedness, Exertional dyspnea, Decr. exercise tolerance. denies: Edema - Respiratory Respiratory: reports: SOB with exertion. denies: Cough, SOB at rest - Gastrointestinal Gastrointestinal: reports: Abdominal pain, Constipation (improving), Nausea, Bloating, Poor appetite, Early satiety. denies: Rectal bleeding, Vomiting - Genitourinary Genitourinary: reports: Frequency - Musculoskeletal Musculoskeletal: reports: Back pain, Muscle aches, Stiffness, Limited range of motion (right shoulder), Muscle weakness, Assistive devices (has cane; walker is available from hip surgery) - Integumentary Integumentary: reports: Dryness - Neurological Neurological: reports: General weakness, Memory problems (mild) - Endocrine Endocrine: reports: Intolerance to cold - Hematologic/Lymphatic Hematologic/Lymph: reports: Anemia, Recurrent infections (abdominal) - All Other Systems All Other Systems: reports: Reviewed and negative Physical Exam - Vital Signs Temperature: 97.1 C Pulse Rate: 76 Respiratory Rate: 18 O2 Saturation: 98 Blood Pressure: 102/64 - Physical Exam General Appearance: positive: Alert, Mild distress, Cachetic Eyes Bilateral: positive: Normal inspection, No scleral icterus ENT: positive: Other (eyes sunken) Neck: positive: Trachea midline Cardiovascular: positive: Regular rate & rhythm Respiratory: positive: Diminished throughout. negative: Wheezes, Rales, Rhonchi Abdomen: positive: Nml bowel sounds, Tenderness, Other (abdominal hernia size of double grapefruits; soft and reducible but tender; ;umbilical hernial size of [place] soft and reducible). negative: Guarding Skin: positive: Pallor, Dryness Extremities: positive: No pedal edema, Other (gait slow and measured; appears weak) Neurologic/Psychiatric: positive: Oriented x3, Weakness, Depressed mood/affect, Flat affect Palliative Care - POLST Patient has POLST: Yes POLST Status: DNR, Selective Treatment Pain: Pain improved, Location (abdominal; right shoulder), Comment (using oxycodone 10 mg tid to qid) Feelings of wellbeing/Perceived Quality of Life: Fair, Worsening Sleep: Variable sleep pattern Constipation: Yes, Opoid induced, Intermittent constipation (improved) Performance Status: Is only able to ambulate short distances, has been able to manage lately without the cane. Has had no falls but unable to be anywhere but in his recliner and living room. Unable to navigate stairs or prolonged standing. - Palliative Care Discussion: Discussion with patient and , language barrier is with who is from [place]. It has been very difficult for patient as he is worried about her wellbeing as his eminent demise is coming. She had asked me about addiction, when encouraged patient to take more pain meds, secondary when he is "cured". This unfortunately led to a long discussion in the context that the treatment was palliative in nature, the hope was for months not years, and conversation about weighing benefits and burdens given he feels better off of it, about continuing or not. Patient still feels like he needs to do what he can, but is starting to make decisions in the context of quality of life. She is appropriately tearful and upset, after she left, we did discuss further about the continuum of care, patient had questions about DWD and end-of-life, and transitioning to hospice. He does not feel like he is ready for that yet, but asked appropriate questions given this. Impression and Recommendations - Palliative Care Impression: This is a 71-year-old gentleman with known differentiated liposarcoma/retroperitoneal sarcoma and small bowel perforation with neutrophilic leukocytosis. He continues to do poorly with high symptom burden of pain, nausea, constipation and known functional decline. Met with his and patient today, to discuss in the context of palliative treatment versus curative. Patient continues to weigh benefits and burdens of continuing treatment as it has been difficult. Palliative care providing support for pain and symptom management, psychosocial support and anticipatory guidance. Recommendations/Counseling Done: 1. Pain of neoplastic origin. Patient continues with worsening abdominal pain fluctuates in severity, is doing better on increased oxycodone 10 mg 3 times daily with occasional breakthrough pain medication. Did order 10 mg tablets, encourage patient to increased intake at least every 3-4 hours given the fluctuating level as well as the severity of his pain. Counseling provided regarding concerns for addiction, discussed more important to keep him comfortable, given the level of intensity of his pain and impact on functioning. 2. Constipation. Patient continues to struggle, has been taking MiraLAX twice daily with improvement of bowels, had encouraged to integrate senna 8.6 mg at least 1-2 tabs twice a day. This was reviewed, will cone picker medication. Verbalized understanding written instructions provided at last visit. 3. Anorexia. Patient with early satiety and intermittent nausea, at this point time responding to the Zofran. He has been doing smoothies, small frequent sips, soups, but is still quite cachectic. 4. Generalized weakness. Patient is mostly recliner bound, would be a PPS of 40% is able to ambulate short distance to the bathroom but gets quite exhausted. Counseled again encouraged to use walker with ambulation for balance and fall prevention. 5. Advance care planning. The patient does recognize the seriousness of his illness, were able to have family conference with his to help her better understand his imminent and decline. He is quite miserable and has been ready to go, we did discuss the continuum of care around end-of-life and decisions he can make to hasten this if he wants. He does have a POLST with DN AR/DNI and selective treatments. Again reiterated if patient not to continue his Ibrance, would recommend transition to hospice is soon as possible for support for Jaquelin. 60 minutes with greater than 50% of this done in counseling regarding pain and symptom management, anticipatory guidance, goals of care, family meeting.
== END 2021-12-27 13:01 | disposition home or self-care (01) ==
LOC: PC 13:00
PROVIDERS: ATTEND Nurse Practitioner Adult Health
DX: Z51.5 Encounter for palliative care (principal); G89.3 Neoplasm related pain (acute) (chronic); K59.03 Drug induced constipation; T40.2X5A Adverse effect of other opioids, initial encounter; C49.9 Malignant neoplasm of connective and soft tissue, unspecified; K63.1 Perforation of intestine (nontraumatic); R63.0 Anorexia; R68.81 Early satiety; R11.0 Nausea; R53.1 Weakness; Z74.09 Other reduced mobility; Z79.891 Long term (current) use of opiate analgesic; Z79.899 Other long term (current) drug therapy; Z63.79 Other stressful life events affecting family and household; Z66 Do not resuscitate
CPT/HCPCS: 99350

== ENCOUNTER 2022-01-03 12:48 | Outpatient (CLI) | payer MEDICARE, OTHER ==
--- NOTE | 2022-01-03 17:58 | CONSULTATION NOTE ---
Palliative Care Follow Up - Referral Referring Provider: Brenda POSEY Time of Visit: [id number] Referral setting: Home Referral Reason: Pain of neoplastic origin/Retroperitoneal Sarcoma - Information Sources Records reviewed: Previous records reviewed History/Review of Systems obtained from: Patient Exam limitations: No limitations - History of Present Illness Update Brief HPI Update: See HPI 12/22 complete HPI HPI update: This is a 71-year-old gentleman with dedifferentiated liposarcoma and retroperitoneal sarcoma, currently taking Ibrance. He has restarted on his 28- day cycle, continues with fairly high symptom burden. He had increased his oxycodone 10 mg to 4 times a day, though had been encouraged to take more frequently secondary to worsening pain. Patient does continue to have pain and central abdominal feels like "tumors are pushing "pulling down. Does get relief of pressure feeling. He has titrated his bowel program to regular soft stools daily, with MiraLAX 17 g twice daily. He remains on prophylactic antibiotics for concerns relating to small bowel perforation and free air around intestine consistent perforation of bowel by tumor shown on CT scan 11/14/2021. He has not had any further fever or chills, though he remains quite weak and mostly chair bound. He is able to ambulate short distances to the bathroom. He remains quite cachectic, but is staying hydrated and drinking protein shakes with small amounts of soft food. He does have intermittent nausea and is aware of the seriousness of his illness. Past Medical History: MargieHypertension, migraines, tremors, ulcers, chronic constipation, frequent urination, chronic vision loss, osteoarthritis, fatigue, right shoulder pain I bleeding with presentation in 2019 Social History - Living Situation Living arrangement: At home Living Situation: With spouse/s.o. 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 He lives here on [address] with his Jaquelin, they have a home. This is a second marriage and they have been for 27 years. He remains very concerned about her lack of social support, her family is in [place]. He has had a recent visit with his 2 daughters, who are willing to come back and provide support after his .Patient has a couple friends that he talks with, though otherwise is very isolated himself. Medications/Allergies - Medications Home Medications: Ambulatory Orders Medication Instructions Recorded Confirmed Ondansetron Odt [Zofran Odt] 4 mg PO Q6H PRN #60 tablet 06/03/21 12/27/21 Amox/Clav 875/125 [Augmentin 1 tablet PO BID 12/22/21 12/27/21 875/125 Tab] Senna [Senokot] 1 tab PO BID MDD 8 12/22/21 12/27/21 oxyCODONE [Roxicodone] 10 - 20 mg PO .Q3 PRN MDD 10 mg 12/22/21 12/27/21 tabs polyethylene glycoL 3350 [Miralax] 17 gm PO BID PRN MDD bid 12/22/21 12/27/21 Palbociclib [Ibrance] 125 mg PO .1-21 DAYS 12/27/21 12/27/21 - Allergies Allergies/Adverse Reactions: Allergies Allergy/AdvReac Type Severity Reaction Status Date / Time No Known Drug Allergies Allergy Verified 10/22/21 16:30 Review of Systems - Constitutional Constitutional: reports: Fatigue (worsening), Weakness, Poor appetite, Night sweats, Weight loss. denies: Fever, Chills - Eyes Eyes: reports: Vision loss - Ears, Nose & Throat Ears, Nose & Throat: reports: Dry mouth - Cardiovascular Cardiovascular: reports: Lightheadedness, Exertional dyspnea, Decr. exercise tolerance. denies: Edema - Respiratory Respiratory: reports: SOB with exertion. denies: Cough, SOB at rest - Gastrointestinal Gastrointestinal: reports: Abdominal pain, Constipation (improving going daily with less effort and soft stool), Nausea, Bloating, Poor appetite, Early satiety. denies: Rectal bleeding, Vomiting - Genitourinary Genitourinary: reports: Frequency - Musculoskeletal Musculoskeletal: reports: Back pain, Muscle aches, Stiffness, Limited range of motion (right shoulder), Muscle weakness, Assistive devices (has cane; walker is available from hip surgery) - Integumentary Integumentary: reports: Dryness - Neurological Neurological: reports: General weakness, Memory problems (mild) - Psychiatric Psychiatric: reports: Depression, Anxiety - Endocrine Endocrine: reports: Intolerance to cold - Hematologic/Lymphatic Hematologic/Lymph: reports: Anemia, Recurrent infections (abdominal) - All Other Systems All Other Systems: reports: Reviewed and negative Physical Exam - Vital Signs Temperature: 96.3 C Pulse Rate: 96 Respiratory Rate: 18 O2 Saturation: 97 Blood Pressure: 102/64 - Physical Exam General Appearance: positive: Alert, Mild distress, Cachetic Eyes Bilateral: positive: Normal inspection, No scleral icterus ENT: positive: Other (eyes sunken) Neck: positive: Trachea midline Cardiovascular: positive: Regular rate & rhythm Respiratory: positive: Diminished throughout. negative: Wheezes, Rales, Rhonchi Abdomen: positive: Nml bowel sounds, Tenderness, Other (abdominal hernia size of double grapefruits; soft and reducible but tender; ;umbilical hernial size of [place] soft and reducible). negative: Guarding Skin: positive: Pallor, Dryness Extremities: positive: No pedal edema, Other (gait slow and measured; appears weak) Neurologic/Psychiatric: positive: Oriented x3, Weakness, Depressed mood/affect, Flat affect Palliative Care - POLST Patient has POLST: Yes POLST Status: DNR, Selective Treatment Pain: Pain improved, Location (abdominal; oxycodone 10 mg still lasting on 3 hours), Severity (mod) Feelings of wellbeing/Perceived Quality of Life: Fair, Worsening Sleep: Sleep improved, Variable sleep pattern Constipation: Yes, Opoid induced, Managed Performance Status: Is able to ambulate only short distances, can get from sitting to standing but does spend most the time in recliner. He did shower though this was after 1 week. Remains quite weak and compromised. He is unable to navigate stairs, or prolonged standing, would be difficult to go out but feels like he could "manage" if needs to leave for labs. - Palliative Care Discussion: Reviewed conversation last week, patient reports still believes he is going to "get better" though we had discussed the seriousness of his illness. He himself is hoping for the best, feels this helps his coping with "pretending to get better", continue to choose treatment.He has a couple more things to do for his end-of-life planning, but is pretty well set, this is giving him some peace of mind. He is hoping he will just "go in his sleep". Patient discussed a little bit more his fears of hospice, these were shared secondary to friends experience. Patient is an introvert and wanting very little interaction, we discussed again how home hospice would look, support he would receive, and recommendations when he no longer chooses to do treatment or functionally declines, given Jaquelin's need for support would recommend sooner than later. Patient verbalized understanding with improved understanding of hospice support. Impression and Recommendations - Palliative Care Impression: This is a 71-year-old gentleman with known dedifferentiated liposarcoma/Retroper itoneal sarcoma, small bowel perforation with neutrophilic leukocytosis. He continues with moderate to high symptom burden, of pain, nausea, constipation now resolved and continued functional decline. Patient currently on Ibrance, tolerating fair. Palliative care providing support for pain and symptom management, psychosocial support and anticipatory guidance Recommendations/Counseling Done: 1. Pain of neoplastic origin. Patient continues with fluctuating abdominal pain, some improvement with increase of oxycodone. Still not lasting for 4 hours, will increase oxycodone to 15 mg every 3-4 hours [id number] as needed. Counseling provided again regarding transitioning possible to fentanyl patch, with oxycodone for breakthrough pain. Patient in agreement to take at least 4-5 times in 24-hour period, will continue to evaluate. Patient tolerating without any signs of sedation, constipation controlled. 2. Constipation. Patient is taking MiraLAX twice daily, with regular soft bowel movements with less distress. Patient instructed to add senna 1-2 tabs with increase in pain meds, verbalized understanding, written instructions provided. 3. Anorexia. Patient continues with early satiety and intermittent nausea, continues with smoothies, soups, does feel like he is maintaining though continues to appear quite cachectic. 4. Muscle weakness. Patient remains mostly recliner bound, PPS of 40%. Does get quite exhausted, has had no falls. Encouraged again to use walker for balance and fall prevention. 5. Retroperitoneal sarcoma. Patient continues with Ibrance, patient still wanting to engage in treatment. We will follow-up with [facility] regarding expected labs and patient questions regarding imaging. 6. Advanced care planning. Patient does recognize the seriousness of his illness, continuing to have conversations about processing this, patient's biggest stressor is the burden on Jaquelin. Counseling provided Riggan regarding hospice benefit, will continue to follow and transition when patient ready. 50 minutes with greater than 50% of this done in counseling regarding pain and symptom management psychosocial support and anticipatory guidance.Coordination of care with oncology team.
== END 2022-01-03 12:49 | disposition home or self-care (01) ==
LOC: PC 12:48
PROVIDERS: ATTEND Nurse Practitioner Adult Health
DX: Z51.5 Encounter for palliative care (principal); G89.3 Neoplasm related pain (acute) (chronic); K63.1 Perforation of intestine (nontraumatic); C48.0 Malignant neoplasm of retroperitoneum; K59.03 Drug induced constipation; T40.2X5A Adverse effect of other opioids, initial encounter; R63.0 Anorexia; R68.81 Early satiety; R11.0 Nausea; M62.81 Muscle weakness (generalized); Z79.891 Long term (current) use of opiate analgesic; Z79.899 Other long term (current) drug therapy; Z79.2 Long term (current) use of antibiotics; Z66 Do not resuscitate
CPT/HCPCS: 99349

== ENCOUNTER 2022-01-05 13:42 | Outpatient (CLI) | payer MEDICARE, OTHER ==
[2022-01-05 14:01] LABS: BASOPHILS % (AUTO) 0.3 %; EOSINOPHILS % (AUTO) 33.8 %; HCT - HEMATOCRIT 28.4 % (42.0-52.0); HGB - HEMOGLOBIN 9.2 g/dL (14.0-18.0); MEAN CORPUSCULAR HEMOGLOBIN 30.3 pg (27.0-31.0); MEAN CORPUSCULAR HGB CONC 32.4 g/dL (32.0-36.0); MEAN CORPUSCULAR VOLUME 93.4 fL (80.0-94.0); MEAN PLATELET VOLUME 8.9 fL (7.4-11.4); NEUTROPHILS % (AUTO) 59.2 %; PLT - PLATELET COUNT 315 10^3/uL (130-450); RED BLOOD COUNT 3.04 10^6/uL (4.70-6.10); RED CELL DISTRIBUTION WIDTH 17.6 % (12.0-15.0)
[2022-01-05 14:10] LABS: SLIDE REVIEW? Indicated
[2022-01-05 14:11] LABS: ABNORMAL LYMPHS % (MANUAL) 0 %
[2022-01-05 14:13] LABS: ALBUMIN 2.3 g/dL (3.2-5.5); ALBUMIN/GLOBULIN RATIO 0.7 (1.0-2.2); ALKALINE PHOSPHATASE 97 IU/L (42-121); ALT ALANINE AMINOTRANSFERASE < 10 IU/L (10-60); AST ASPARTATE AMINOTRANSFERASE 10 IU/L (10-42); BILIRUBIN,TOTAL 0.5 mg/dL (0.2-1.0); BUN - BLOOD UREA NITROGEN 14 mg/dL (6-20); CALCIUM 8.1 mg/dL (8.5-10.3); CARBON DIOXIDE - CO2 23 mmol/L (21-32); CHLORIDE 95 mmol/L (101-111); CREATININE 0.6 mg/dL (0.6-1.2); GFR - MDRD 132 (>89); GLUCOSE 125 mg/dL (70-100); POTASSIUM 4.6 mmol/L (3.5-5.0); SODIUM 128 mmol/L (135-145); TOTAL PROTEIN 5.7 g/dL (6.7-8.2)
[2022-01-05 16:01] LABS: WHITE BLOOD COUNT 38.7 x10^3/uL (4.8-10.8)
[2022-01-05 16:07] LABS: BAND NEUTROPHILS % (MANUAL) 5 %; BASOPHILS # (MANUAL) 0.4 10^3/uL (0-0.1); BASOPHILS % (MANUAL) 1 %; LYMPHOCYTES # (MANUAL) 0.4 10^3/uL (1.5-3.5); LYMPHOCYTES % (MANUAL) 1 %; MONOCYTES # (MANUAL) 3.1 10^3/uL (0.0-1.0); NEUTROPHILS # (MANUAL) 19.7 10^3/uL (1.5-6.6)
[2022-01-05 16:10] LABS: PLATELET ESTIMATE, MANUAL NORMAL (130-450,000) (NORMAL); PLATELET MORPHOLOGY NORMAL APPEARANCE (NORMAL); WBC MORPHOLOGY (MULTIPLE) NORMAL APPEARANCE (NORMAL)
[2022-01-05 16:11] LABS: DIFFERENTIAL COMMENT MANUAL DIFFERENTIAL
[2022-01-05 16:13] LABS: METAMYELOCYTES % (MANUAL) 8 %
== END 2022-01-05 13:43 | disposition home or self-care (01) ==
LOC: LAB 13:42
PROVIDERS: ATTEND Dietitian, Registered
DX: C49.9 Malignant neoplasm of connective and soft tissue, unspecified (principal)
CPT/HCPCS: 36415; 80053; 85025

== ENCOUNTER 2022-01-11 17:10 | Observation (INO) | payer MEDICARE, OTHER ==
--- NOTE | 2022-01-11 17:31 | ED Physician Documentation ---
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 No other acute complaints. No history of stroke or vascular disease. He notes horizontal diplopia that goes away when he closes either eye. No associated headache or other weakness. Review of Systems Ten Systems: 10 systems reviewed and negative Constitutional: reports: Reviewed and negative Nose: reports: Reviewed and negative Throat: reports: Reviewed and negative Cardiac: reports: Reviewed and negative PD PAST MEDICAL HISTORY - Past Medical History Cardiovascular: Hypertension Respiratory: None Neuro: Migraines, Tremors Endocrine/Autoimmune: None GI: Ulcers, Chronic constipation : Frequency HEENT: Chronic vision loss Psych: None Musculoskeletal: Osteoarthritis, Fatigue Derm: None - Past Surgical History Past Surgical History: No General: Gastric surgery, EGD, Other (port placement) Ortho: Hip replacement /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: Other (Left hydrocele surgery) - Present Medications Home Medications: Ambulatory Orders Medication Instructions Recorded Confirmed Ondansetron Odt [Zofran Odt] 4 mg PO Q6H PRN #60 tablet 06/03/21 12/27/21 Amox/Clav 875/125 [Augmentin 1 tablet PO BID 12/22/21 12/27/21 875/125 Tab] Senna [Senokot] 1 tab PO BID MDD 8 12/22/21 12/27/21 oxyCODONE [Roxicodone] 10 - 20 mg PO .Q3 PRN MDD 10 mg 12/22/21 12/27/21 tabs polyethylene glycoL 3350 [Miralax] 17 gm PO BID PRN MDD bid 12/22/21 12/27/21 Palbociclib [Ibrance] 125 mg PO .1-21 DAYS 12/27/21 12/27/21 - Allergies Allergies/Adverse Reactions: Allergies Allergy/AdvReac Type Severity Reaction Status Date / Time No Known Drug Allergies Allergy Verified 10/22/21 16:30 - Social History Does the pt smoke?: No Smoking Status: Never smoker Does the pt drink ETOH?: No Does the pt have substance abuse?: No - POLST Patient has POLST: Yes POLST Status: Full Code PD ED PE NORMAL - Vitals Vital signs reviewed: Yes - General General: Alert and oriented X 3, No acute distress - HEENT HEENT: PERRL, EOMI (He notes horizontal diplopia on rightward gaze, I am not able to see an obvious extraocular movement deficit though.), Pharynx benign - Neck Neck: Supple, no meningeal sign, No bony TTP - Cardiac Cardiac: RRR, No murmur - Respiratory Respiratory: No respiratory distress, Clear bilaterally - Abdomen Abdomen: Normal bowel sounds, Soft, Non tender - Back Back: No CVA TTP, No spinal TTP - Derm Derm: Normal color, Warm and dry - Extremities Extremities: No edema, No calf tenderness / cord - Neuro Neuro: Alert and oriented X 3, 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, No motor deficit, No sensory deficit, Normal speech Eye Opening: Spontaneous Motor: Obeys Commands Verbal: Oriented GCS Score: 15 - Psych Psych: Normal mood, Normal affect NIHSS - Time Time: 17:20 - Level of Consciousness Level of consciousness: (0) Alert, Keenly responsive LOC Questions: (0) Answers both Q's correct LOC Commands: (0) Performs both correctly - Gaze Best Gaze: (0) Normal - Visual Visual: (0) No loss - Facial Palsy Facial Palsy: (0) Normal, symmetrical movement - Motor Arms (both separate) Motor Arm (right): (0) No drift Motor Arm (left): (0) No drift - Motor Legs (both separate) Motor Leg (right): (0) No drift Motor Leg (left): (0) No drift - Limb Ataxia Limb Ataxia: (0) Absent - Sensory Sensory: (0) Normal - Best Language Best Language: (0) No aphasia - Dysarthria Dysarthria: (0) Normal - Extinction and Inattention (formally neg Extinction and inattention: (0) No abnormality - Total Score/Results Total Score/Result: 0 Results - Vitals Vitals: Vital Signs - 24 hr 01/11/22 01/11/22 01/11/22 17:16 17:22 17:52 Temperature 36.9 C 36.9 C Heart Rate 84 84 77 Respiratory 17 17 18 Rate Blood Pressure 119/75 119/75 115/74 O2 Saturation 99 99 99 01/11/22 01/11/22 01/11/22 18:22 18:30 19:00 Temperature Heart Rate 72 73 66 Respiratory 16 16 16 Rate Blood Pressure 117/66 117/66 111/61 O2 Saturation 98 98 97 01/11/22 01/11/22 01/11/22 19:30 20:00 20:30 Temperature Heart Rate 66 70 69 Respiratory 16 16 16 Rate Blood Pressure 122/68 122/68 109/64 O2 Saturation 96 98 98 Oxygen O2 Source Room air - EKG (time done) 1809 Rate: Rate (enter#) (73) Rhythm: Atrial flutter [place]: Normal Intervals: Normal VA QRS: Normal Ischemia: Normal ST segments - Labs Labs: Laboratory Tests 01/11/22 01/11/22 01/11/22 17:32 17:32 17:32 WBC 36.0 H* RBC 3.31 L Hgb 10.1 L Hct 31.7 L MCV 95.8 H MCH 30.5 MCHC 31.9 L RDW 18.3 H Plt Count 234 MPV 9.1 Neut # (Auto) Not Reportable Lymph # (Auto) Not Reportable Aurora # (Auto) Not Reportable Eos # (Auto) Not Reportable Baso # (Auto) Not Reportable Absolute Nucleated RBC Not Reportable Total Counted 100 Band Neuts % (Manual) 2 Abnorm Lymph % (Manual) 0 Metamyelocytes % 18 H Nucleated RBC % Not Reportable Neutrophils # (Manual) 13.3 H Lymphocytes # (Manual) 4.0 H Monocytes # (Manual) 1.4 H Eosinophils # (Manual) 10.8 H Basophils # (Manual) 0.0 Differential Comment MANUAL DIFFERENTIAL Manual Slide Review Indicated WBC Morphology NORMAL APPEARANCE Platelet Estimate NORMAL (130-450,000) Platelet Morphology NORMAL APPEARANCE RBC Morph Micro Appear 2+ ANISOCYTOSIS PT 13.9 H INR 1.3 H Sodium 131 L Potassium 5.2 H Chloride 95 L Carbon Dioxide 25 Anion Gap 11.0 BUN 17 Creatinine 0.7 Estimated GFR (MDRD) 111 Glucose 109 H POC Whole Bld Glucose Calcium 8.7 Total Bilirubin 0.4 AST 12 ALT 10 Alkaline Phosphatase 93 Total Protein 6.7 Albumin 2.7 L Globulin 4.0 Albumin/Globulin Ratio 0.7 L Nasal Adenovirus (PCR) Nasal B. parapertussis DNA (PCR) Nasal Coronavir 229E PCR Nasal Coronavir HKU1 PCR Nasal Coronavir NL63 PCR Nasal Coronavir OC43 PCR Nasal Enterovir/Rhinovir PCR Nasal Influenza B PCR Nasal Influenza A PCR Nasal Parainfluen 1 PCR Nasal Parainfluen 2 PCR Nasal Parainfluen 3 PCR Nasal Parainfluen 4 PCR Nasal RSV (PCR) Nasal B.pertussis DNA PCR Nasal C.pneumoniae (PCR) Jimbo Human Metapneumo PCR Nasal M.pneumoniae (PCR) Nasal SARS-CoV-2 (PCR) 01/11/22 01/11/22 17:58 19:35 WBC RBC Hgb Hct MCV MCH MCHC RDW Plt Count MPV Neut # (Auto) Lymph # (Auto) Aurora # (Auto) Eos # (Auto) Baso # (Auto) Absolute Nucleated RBC Total Counted Band Neuts % (Manual) Abnorm Lymph % (Manual) Metamyelocytes % Nucleated RBC % Neutrophils # (Manual) Lymphocytes # (Manual) Monocytes # (Manual) Eosinophils # (Manual) Basophils # (Manual) Differential Comment Manual Slide Review WBC Morphology Platelet Estimate Platelet Morphology RBC Morph Micro Appear PT INR Sodium Potassium Chloride Carbon Dioxide Anion Gap BUN Creatinine Estimated GFR (MDRD) Glucose POC Whole Bld Glucose 99 Calcium Total Bilirubin AST ALT Alkaline Phosphatase Total Protein Albumin Globulin Albumin/Globulin Ratio Nasal Adenovirus (PCR) NOT DETECTED Nasal B. parapertussis DNA (PCR) NOT DETECTED Nasal Coronavir 229E PCR NOT DETECTED Nasal Coronavir HKU1 PCR NOT DETECTED Nasal Coronavir NL63 PCR NOT DETECTED Nasal Coronavir OC43 PCR NOT DETECTED Nasal Enterovir/Rhinovir PCR NOT DETECTED Nasal Influenza B PCR NOT DETECTED Nasal Influenza A PCR NOT DETECTED Nasal Parainfluen 1 PCR NOT DETECTED Nasal Parainfluen 2 PCR NOT DETECTED Nasal Parainfluen 3 PCR NOT DETECTED Nasal Parainfluen 4 PCR NOT DETECTED Nasal RSV (PCR) NOT DETECTED Nasal B.pertussis DNA PCR NOT DETECTED Nasal C.pneumoniae (PCR) NOT DETECTED Jimbo Human Metapneumo PCR NOT DETECTED Nasal M.pneumoniae (PCR) NOT DETECTED Nasal SARS-CoV-2 (PCR) NOT DETECTED - Rads (name of study) CT angiography of the head and neck, old right parietal infarct, no acute disease or significant vascular issues Radiology: EMP read contemporaneously PD MEDICAL DECISION MAKING - ED course ED course: After initial evaluation I spoke with telestroke physician, Dr. Moreno who will be min and see the patient. Telestroke neurologist saw the patient and did not feel like he was a good tPA candidate given the low stroke scale. Also the patient's symptoms were improving while in the department. Recommended aspirin and medical management. Spoke with Dr Galvan for obs at 1999. Note made of his significant leukocytosis which is not a new issue looking at old labs. Departure - Departure Disposition: ED Place in Observation Clinical Impression: TIA (transient ischemic attack) Condition: Good Discharge Date/Time: 01/11/22 21:44
[2022-01-11 17:46] LABS: BASOPHILS % (AUTO) 0.6 %; EOSINOPHILS % (AUTO) 34.8 %; HCT - HEMATOCRIT 31.7 % (42.0-52.0); HGB - HEMOGLOBIN 10.1 g/dL (14.0-18.0); LYMPHOCYTES % (AUTO) 4.5 %; MEAN CORPUSCULAR HEMOGLOBIN 30.5 pg (27.0-31.0); MEAN CORPUSCULAR HGB CONC 31.9 g/dL (32.0-36.0); MEAN CORPUSCULAR VOLUME 95.8 fL (80.0-94.0); MEAN PLATELET VOLUME 9.1 fL (7.4-11.4); MONOCYTES % (AUTO) 2.4 %; NEUTROPHILS % (AUTO) 57.4 %; PLT - PLATELET COUNT 234 10^3/uL (130-450); RED BLOOD COUNT 3.31 10^6/uL (4.70-6.10); RED CELL DISTRIBUTION WIDTH 18.3 % (12.0-15.0)
[2022-01-11 17:51] LABS: INR 1.3 (0.8-1.2); PT - PROTHROMBIN TIME 13.9 secs (9.9-12.6); SLIDE REVIEW? Indicated
[2022-01-11 17:54] LABS: ABNORMAL LYMPHS % (MANUAL) 0 %
[2022-01-11 17:55] LABS: ALBUMIN 2.7 g/dL (3.2-5.5); ALBUMIN/GLOBULIN RATIO 0.7 (1.0-2.2); BILIRUBIN,TOTAL 0.4 mg/dL (0.2-1.0); CALCIUM 8.7 mg/dL (8.5-10.3); CREATININE 0.7 mg/dL (0.6-1.2); POTASSIUM 5.2 mmol/L (3.5-5.0); TOTAL PROTEIN 6.7 g/dL (6.7-8.2)
--- NOTE | 2022-01-11 17:59 | CT Report ---
PROCEDURE: Head W/O Stroke Protocol INDICATIONS: cva sx TECHNIQUE: Noncontrast 4.5 mm thick angled axial sections acquired from the foramen magnum to the vertex, with c oronal reformats. For radiation dose reduction, the following was used: automated exposure control, adjustment of mA and/or kV according to patient size. COMPARISON: FINDINGS: Image quality: Excellent. CSF spaces: Basal cisterns are patent. No extra-axial fluid collections. Ventricles are normal in size and shape. Brain: Within the right frontal parietal region, abnormal focal low density can be seen, as on series 4 images 17 through 19 and on series 5 image 30. No midline shift. No intracranial masses or hemorr jake. Skull and face: Calvarium and visualized facial bones are intact, without suspicious lesions. Sinuses: Visualized sinuses and mastoids are clear. IMPRESSION: No intracranial hemorrhage is seen. Focal low density seen involving the right frontoparietal region, which is highly suspicious for suba cute infarct. Differential diagnosis would include other causes of edema, including an underlying mas s, yet this is considered to be less likely. Note: Case discussed by telephone with Dr. Morales at 4:56 PM [place] time on 01/11/2022. This study fulfills neurological imaging criteria for inclusion or exclusion of acute stroke therapie s based on available published neurological imaging guidelines. Reviewed by: Dane Cook MD on 01/11/2022 4:58 PM DIANNA Approved by: Dane Cook MD on 01/11/2022 4:58 PM AKEVER Station ID: [id number]
[2022-01-11] MEDS ORDERED: IOVERSOL 320 100 ML VIAL IVP ONE (18:14)
--- NOTE | 2022-01-11 18:14 | CT Report ---
PROCEDURE: ANGIO HEAD W/WO INDICATIONS: CVA sx CONTRAST: IV CONTRAST: Optiray 320 ml: 80 PO CONTRAST: *NO PO CONTRAST TECHNIQUE: Precontrast 4.5 mm thick angled axial sections acquired from the foramen magnum to the vertex. Afte r the administration of intravenous contrast, 1 mm thick sections acquired through the [place] of [place] is. Postcontrast 4.5 mm thick sections then re-acquired from the foramen magnum to the vertex. 3-di mensional kvorkss-ifxqwprtc-alrdgsqcep (MIP) and/or volume rendering reformats were acquired of the c entral intracranial vasculature. For radiation dose reduction, the following was used: automated ex posure control, adjustment of mA and/or kV according to patient size. COMPARISON: Correlation is made with the accompanying noncontrast head CT and CT angiogram, 2. FINDINGS: Image quality: There is streak artifact seen through the skull base. Anterior circulation: Intracranial internal carotid arteries are normal in size and flow. Note is m jose c of a diminutive right A1 segment, with a correspondingly robust left A1 segment. This is consider ed to be a developmental variant of no clinical consequence. The flow within the paired anterior cer ebral arteries is otherwise normal and symmetric. The flow within the middle cerebral arteries is no rmal and symmetric. The anterior communicating artery is seen. No aneurysms are seen. Posterior circulation: Visualized portions of the vertebral arteries demonstrate normal caliber, and join to form a normal appearing basilar artery. Incidental note is made of a prominent right poste rior communicating artery, with a diminutive right P1 segment. This is attributed to a type clarisse gin of the right posterior cerebral artery, which is considered to be a developmental variant of typi phong no clinical consequence. The flow within the posterior cerebral arteries is normal and symmet homer. No aneurysms are seen. CSF spaces: Ventricles are normal in size and shape. Basal cisterns are patent. No extra-axial flu id collections. Brain: There is a nonenhancing area of low density seen involving the right frontoparietal region. N o midline shift. No intracranial bleeds or masses. Meeks-white matter interface appears intact. Skull and face: Calvarium and facial bones appear intact, without suspicious lesions. Sinuses: Visualized sinuses and mastoids are clear. IMPRESSION: No significant intracranial arterial abnormalities are seen. Enterprise of Bello developmental anomalies are incidentally noted, which are not considered to be clini phong significant. There is a nonenhancing area of low-density seen involving the right frontal parietal region. The alo ging appearance is most consistent with a subacute infarction. Reviewed by: Dane Cook MD on 01/11/2022 5:12 PM AKEVER Approved by: Dane Cook MD on 01/11/2022 5:12 PM AKEVER Station ID: [id number]
[2022-01-11] MEDS ORDERED: ASPIRIN 325 MG TABLET PO STA (18:15)
--- NOTE | 2022-01-11 18:16 | CT Report ---
PROCEDURE: ANGIO NECK W INDICATIONS: cva sx CONTRAST: IV CONTRAST: Optiray 320 ml: 80 PO CONTRAST: *NO PO CONTRAST TECHNIQUE: After the administration of intravenous contrast, 1.5 mm axial sections acquired from the aortic arch to the [place] of [place]. Coronal 3-D maximum intensity projection (MIP) and/or volume rendering ref ormats were then performed. For radiation dose reduction, the following was used: automated exposur e control, adjustment of mA and/or kV according to patient size. COMPARISON: Correlation is made with the accompanying noncontrast head CT and CT angiogram, 2. FINDINGS: Image quality: Excellent. Carotid system: The great vessels demonstrate a conventional anatomy as they arise from the aortic a rch. The origins of the common carotid arteries appear patent. The common carotid arteries demonstr ate normal calibers and courses. The bifurcation regions demonstrate vascular calcification and irre gularity, right worse than left. There is 20-30% narrowing seen involving the right proximal internal carotid artery and no significant stenosis seen involving the left proximal internal carotid artery. The more distal internal carotid arteries demonstrate normal caliber. At least moderate tortuosity can be seen of the internal carotid arteries. Posterior circulation: Incidental note is made of a direct origin of the left vertebral artery from t he aortic arch. The origins of the vertebral arteries appear patent. The more superior portions of the vertebral arteries demonstrate normal course and caliber. The right vertebral artery is dominant to the left. Soft tissues: Visualized neck soft tissues demonstrate no suspicious abnormalities. The thyroid is normal in size and there are no incidental findings. Bones: No suspicious bony lesions. Visualized cervical spine appears normally aligned. Moderate t o prominent cervical spine degenerative changes are seen, which are worst inferiorly. IMPRESSION: No hemodynamically significant stenosis can be seen within the arteries of the neck. Incidental note is made of: Moderate to prominent cervical spine degenerative change Direct origin of the left vertebral artery from the aortic arch. Tortuosity seen of the internal carotid arteries The estimate of stenosis included in the report of the imaging study was calculated using the NASCET method Reviewed by: Dane Cook MD on 01/11/2022 5:15 PM AKDT Approved by: Dane Cook MD on 01/11/2022 5:15 PM AKEVER Station ID: [id number]
[2022-01-11 18:17] LABS: BAND NEUTROPHILS % (MANUAL) 2 %; EOSINOPHILS # (MANUAL) 10.8 10^3/uL (0-0.7); LYMPHOCYTES % (MANUAL) 11 %; METAMYELOCYTES % (MANUAL) 18 %; MONOCYTES # (MANUAL) 1.4 10^3/uL (0.0-1.0); NEUTROPHILS # (MANUAL) 13.3 10^3/uL (1.5-6.6)
[2022-01-11 18:32] LABS: DIFFERENTIAL COMMENT MANUAL DIFFERENTIAL; PLATELET ESTIMATE, MANUAL NORMAL (130-450,000) (NORMAL); PLATELET MORPHOLOGY NORMAL APPEARANCE (NORMAL); RBC MORPHOLOGY (MULTIPLE) 2+ ANISOCYTOSIS (NORMAL); WBC MORPHOLOGY (MULTIPLE) NORMAL APPEARANCE (NORMAL)
[2022-01-11] MEDS ORDERED: oxyCODONE 5 MG TABLET PO STA (20:20)
[2022-01-11] MEDS ORDERED: PROCHLORPERAZINE 5 MG TABLET PO STA (20:20)
[2022-01-11] MEDS ORDERED: SODIUM CHLORIDE FLUSH 0.9% 10 ML SYRINGE IVP PRN (20:55)
[2022-01-11] MEDS ORDERED: oxyCODONE 5 MG TABLET PO PRN (20:58)
--- NOTE | 2022-01-11 21:01 | HISTORY & PHYSICAL EXAMINATION ---
Chief Complaint - Chief Complaint Chief Complaint: double-vision History of Present Illness - Admitted From Admitted From:: [facility] ED - History Obtained From Records Reviewed: Yes History obtained from: Patient and records - History of Present Illness HPI Comment/Other: Patient is a 71-year-old male with history of dedifferentiated liposarcoma and retroperitoneal sarcoma currently on treatment with Ibrance. He receives oncology care at the [facility]. He was last admitted at [facility] in April after 2020 with perforated viscus for which she underwent an ex lap with repair of gastric ulcer done by Dr. Livier Franklin. He presented to the ED today with complaint of double vision. It started around 5 PM while he was reading an email on the computer. The symptoms lasted about 2 hours. By the time of admission his symptoms had completely resolved. He was presented to telestroke neurology who advised complete work-up for TIA/ CVA. At bedside he was resting comfortably. He denied headaches, difficulty speaking, dizziness, any focal weakness. He also denied chest pain, dyspnea, abdominal pain, nausea, vomiting, fever or chills. 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 Sitting in a chair 1 day, taking a nap and just went to sleep and never woke up. Healthy. Mom at age 77. She had a series of strokes, was a diabetic, but eventually of colon cancer. 3 siblings. 1 sister is a right tired feed mill manager with severe arth ritis. 1 sister of hepatitis C. 1 brother has severe COPD and smokes 2 to 3 packs/day. 2 children. Both healthy. Living Situation: With spouse/s.o. Social History Notes: Former smoker. Started the age of 12. Usually only smoked 1 or 2 cigarettes a day. In college increased to maybe 3 or 4 cigarettes a day. 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 He likes his scotch. He was drinking up to 3 or 4 drinks a day. No history of withdrawal or cirrhosis. No history of recreational substance abuse.He is to his second . He had his 2 kids with his first . 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 Sometimes he works for the [employer]. Sometimes he works for the [employer]. When he got sick in [place] he was actually working part-time for the [employer] there. - Substance History Use: Uses substance without health or social issues: Tobacco (hx), Alcohol (had been drinking several shots a day; none since dx) - POLST Patient has POLST: Yes POLST Status: DNR Meds/Allgy - Home Medications Home Medications: Ambulatory Orders Medication Instructions Recorded Confirmed Ondansetron Odt [Zofran Odt] 4 mg PO Q6H PRN #60 tablet 06/03/21 12/27/21 Amox/Clav 875/125 [Augmentin 1 tablet PO BID 12/22/21 12/27/21 875/125 Tab] Senna [Senokot] 1 tab PO BID MDD 8 12/22/21 12/27/21 oxyCODONE [Roxicodone] 10 - 20 mg PO .Q3 PRN MDD 10 mg 12/22/21 12/27/21 tabs polyethylene glycoL 3350 [Miralax] 17 gm PO BID PRN MDD bid 12/22/21 12/27/21 Palbociclib [Ibrance] 125 mg PO .1-21 DAYS 12/27/21 12/27/21 - Allergies Allergies/Adverse Reactions: Allergies Allergy/AdvReac Type Severity Reaction Status Date / Time No Known Drug Allergies Allergy Verified 10/22/21 16:30 Review of Systems - Constitutional Constitutional: denies: Fatigue, Fever, Chills, Weakness, Poor appetite - Eyes Eyes: reports: Dipolpia. denies: Pain, Blurred vision, Spots in vision, Field loss, Vision loss - Ears, Nose & Throat Ears, Nose & Throat: denies: Ear pain, Hearing loss, Vertigo, Nasal discharge, Sore throat - Respiratory Respiratory: denies: Cough, Wheezing, SOB at rest, SOB with exertion - Gastrointestinal Gastrointestinal: reports: Abdominal distention (ventral wall hernia). denies: Abdominal pain, Constipation, Diarrhea, Nausea, Vomiting, Coffee grounds emesis, Reflux/heartburn - Genitourinary Genitourinary: denies: Dysuria, Frequency, Urgency, Hematuria - Musculoskeletal Musculoskeletal: denies: Muscle pain, Back pain - Integumentary Integumentary: denies: Rash - Neurological Neurological: reports: Focal weakness (double-vision). denies: General weakness, Headache, Dizziness, Numbness, Memory problems, Slurred speech - Psychiatric Psychiatric: denies: Depression, Anxiety - Endocrine Endocrine: denies: Polyuria, Polydypsia - Hematologic/Lymphatic Hematologic/Lymphatic: denies: Anemia, Bruising, Petechiae Prior Level of Functionality: Patient is fairly independent of activities of daily living. He gets around using a cane. Exam - Vital Signs Vital Signs: Vital Signs x48h Temp Pulse Resp BP Pulse Ox 01/11/22 20:30 69 16 109/64 98 01/11/22 20:00 70 16 122/68 98 01/11/22 19:30 66 16 122/68 96 01/11/22 19:00 66 16 111/61 97 01/11/22 18:30 73 16 117/66 98 01/11/22 18:22 72 16 117/66 98 01/11/22 17:52 77 18 115/74 99 01/11/22 17:22 36.9 C 84 17 119/75 99 01/11/22 17:16 36.9 C 84 17 119/75 99 - Physical Exam General Appearance: positive: No acute distress, Alert Eyes Bilateral: positive: PERRL, EOMI ENT: positive: ENT inspection nml, No signs of dehydration Neck: positive: No JVD, Trachea midline Respiratory: positive: Chest non-tender, No respiratory distress, Breath sounds nml. negative: Wheezes, Rales, Rhonchi Cardiovascular: positive: Regular rate & rhythm, No murmur Abdomen: positive: Non-tender, No organomegaly, Nml bowel sounds. negative: Gua rding, Rebound Back: positive: Nml inspection Skin: positive: Color nml, No rash, Warm, Dry Extremities: positive: Non-tender, Full ROM, Nml appearance, No pedal edema Neurologic/Psychiatric: positive: Oriented x3, Motor nml, Mood/affect nml. negative: Weakness, Sensory loss, Facial droop, Slurred/abnml speech Conclusion/Plan - Problem List (1) TIA (transient ischemic attack) Conclusion/Plan: CT, CT angio head and neck were negative for any acute intracranial process. Patient's symptoms resolved by the time of admission. MRI brain without contrast ordered for the morning. Will check lipid panel. Patient was given a full dose of aspirin in the ED. We will continue baby aspirin daily. Neurochecks every shift. (2) Liposarcoma Conclusion/Plan: Patient is on Ibrance. He follows with oncology at [facility]. (3) Leukocytosis Conclusion/Plan: Chronic. Thought to be related to his cancer. Patient's white blood cell count was 36. Will monitor. (4) Hypokalemia Conclusion/Plan: Mild. Potassium was 5.2. Will monitor and repeat labs in the morning. - Lab Results Fish Bones: 01/11/22 17:32 01/11/22 17:32 Core Measures - Anticipated LOS I expect patient to be DC'd or transferred within 96 hours.: Yes - DVT/VTE - Prophylaxis VTE/DVT Device ordered at admit?: Yes
[2022-01-11 21:51] LABS: CORONAVIRUS 229E-RESP PCR NOT DETECTED; CORONAVIRUS HKU1-RESP PCR NOT DETECTED; CORONAVIRUS NL63-RESP PCR NOT DETECTED; CORONAVIRUS OC43-RESP PCR NOT DETECTED; HUMAN METAPNEUMOVIRUS NOT DETECTED; SARS-CoV-2 -RESP PCR PANEL NOT DETECTED
[2022-01-11 21:52] LABS: B. PARAPERTUSSIS- RESP PCR PAN NOT DETECTED; B. PERTUSSIS- RESP PCR PANEL NOT DETECTED; C. PNEUMONIAE- RESP PCR PANEL NOT DETECTED; INFLUENZA A- RESP PCR PANEL NOT DETECTED; INFLUENZA B - RESP PCR PANEL NOT DETECTED; M. PNEUMONIAE- RESP PCR PANEL NOT DETECTED; PARAINFLUENZA VIRUS 1 NOT DETECTED; PARAINFLUENZA VIRUS 2 NOT DETECTED; PARAINFLUENZA VIRUS 3 NOT DETECTED; PARAINFLUENZA VIRUS 4 NOT DETECTED; RHINOVIRUS/ENTEROVIRUS NOT DETECTED; RSV- RESP PCR PANEL NOT DETECTED
[2022-01-11] MEDS: SODIUM CHLORIDE FLUSH 0.9% 10 ML SYRINGE IVP SCH (23:44)
[2022-01-12] MEDS: oxyCODONE 5 MG TABLET PO PRN ×5 (05:09→18:35)
[2022-01-12 05:43] LABS: BASOPHILS % (AUTO) 0.5 %; EOSINOPHILS % (AUTO) 36.3 %; HCT - HEMATOCRIT 24.8 % (42.0-52.0); HGB - HEMOGLOBIN 8.2 g/dL (14.0-18.0); LYMPHOCYTES % (AUTO) 4.4 %; MEAN CORPUSCULAR HEMOGLOBIN 31.2 pg (27.0-31.0); MEAN CORPUSCULAR HGB CONC 33.1 g/dL (32.0-36.0); MEAN CORPUSCULAR VOLUME 94.3 fL (80.0-94.0); MEAN PLATELET VOLUME 9.3 fL (7.4-11.4); MONOCYTES % (AUTO) 2.1 %; NEUTROPHILS % (AUTO) 56.4 %; PLT - PLATELET COUNT 166 10^3/uL (130-450); RED BLOOD COUNT 2.63 10^6/uL (4.70-6.10); RED CELL DISTRIBUTION WIDTH 17.9 % (12.0-15.0); WHITE BLOOD COUNT 26.3 x10^3/uL (4.8-10.8)
[2022-01-12 05:52] LABS: ABNORMAL LYMPHS % (MANUAL) 0 %
[2022-01-12 05:58] LABS: BUN - BLOOD UREA NITROGEN 13 mg/dL (6-20); CARBON DIOXIDE - CO2 24 mmol/L (21-32); CHLORIDE 95 mmol/L (101-111); CHOL/HDL RATIO 2.7 (<5.0); CHOLESTEROL 80 mg/dL; CREATININE 0.6 mg/dL (0.6-1.2); GFR - MDRD 132 (>89); GLUCOSE 95 mg/dL (70-100); HDL CHOLESTEROL 30 mg/dL; LDL CHOLESTEROL,CALCULATED 37 mg/dL; LDL/HDL RATIO 1.2 (<3.6); SODIUM 127 mmol/L (135-145); TRIGLYCERIDES 65 mg/dL; VLDL CHOLESTEROL 13 mg/dL
[2022-01-12 06:06] LABS: BAND NEUTROPHILS % (MANUAL) 12 %; EOSINOPHILS # (MANUAL) 9.2 10^3/uL (0-0.7); LYMPHOCYTES # (MANUAL) 3.4 10^3/uL (1.5-3.5); LYMPHOCYTES % (MANUAL) 13 %; MONOCYTES # (MANUAL) 0.3 10^3/uL (0.0-1.0); NEUTROPHILS # (MANUAL) 13.4 10^3/uL (1.5-6.6)
[2022-01-12 06:07] LABS: DIFFERENTIAL COMMENT MANUAL DIFFERENTIAL; PLATELET ESTIMATE, MANUAL NORMAL (130-450,000) (NORMAL); PLATELET MORPHOLOGY NORMAL APPEARANCE (NORMAL); RBC MORPHOLOGY (MULTIPLE) 1+ HYPOCHROMASIA (NORMAL); WBC MORPHOLOGY (MULTIPLE) NORMAL APPEARANCE (NORMAL)
[2022-01-12] MEDS ORDERED: SODIUM CHLORIDE 0.9% 500 ML IV ONE (06:40)
[2022-01-12 07:41] LABS: BILIRUBIN,URINE NEGATIVE (NEGATIVE); GLUCOSE, URINE (UA) NEGATIVE (NEGATIVE); KETONES,URINE (UA) NEGATIVE (NEGATIVE); LEUKOCYTE ESTERASE, URINE NEGATIVE (NEGATIVE); NITRITE,URINE NEGATIVE (NEGATIVE); OCCULT BLOOD,URINE NEGATIVE (NEGATIVE); PROTEIN,URINE NEGATIVE (NEGATIVE); UROBILINOGEN,URINE 0.2 (NORMAL) E.U./dL (NORMAL)
[2022-01-12 07:48] LABS: BACTERIA,URINE None Seen /HPF (None Seen); CLARITY,URINE CLEAR (CLEAR); RBC,URINE None Seen /HPF (0-5); SQUAMOUS EPITHELIAL CELL,UR NONE SEEN (<= Few); WBC,URINE 0-3 /HPF (0-3)
--- NOTE | 2022-01-12 08:08 | XRAY Report ---
PROCEDURE: Chest 1 View X-Ray INDICATIONS: leukocytosis TECHNIQUE: One view of the chest was acquired. COMPARISON: 11/15/2021, 10/22/2020 and 05/27/2021. FINDINGS: Surgical changes and devices: Right chest wall Port-A-Cath tip is in SVC.. Lungs and pleura: No pleural effusions or pneumothorax. Lungs are clear. Mediastinum: Mediastinal contours appear normal. Heart size is normal. Bones and chest wall: No suspicious bony lesions. Moderate to severe bilateral glenohumeral joint c hanges are seen. Overlying soft tissues appear unremarkable. IMPRESSION: No acute cardiopulmonary pathology. Reviewed by: Merlin Osorio MD on 01/12/2022 8:07 AM PDT Approved by: Merlin Osorio MD on 01/12/2022 8:07 AM PDT Station ID: [id number]
[2022-01-12] MEDS: SODIUM CHLORIDE FLUSH 0.9% 10 ML SYRINGE IVP SCH (08:24)
[2022-01-12] MEDS ORDERED: ASPIRIN EC 81 MG TABLET PO SCH (09:00)
[2022-01-12] MEDS ORDERED: polyethylene glycoL 3350 17 GM PACKET PO SCH (12:00)
--- NOTE | 2022-01-12 15:28 | MRI Report ---
PROCEDURE: Brain W/O INDICATIONS: double vision TECHNIQUE: Noncontrast axial T1 spin echo, axial T2 fast spin echo, sagittal and axial FLAIR, coronal T2 fast sp in echo, axial gradient echo, axial diffusion and ADC through the brain. COMPARISON: None. FINDINGS: Image quality: Excellent. CSF Spaces: Basal cisterns are patent. No extra-axial fluid collections. Ventricles are normal in size and shape. Brain: No intracranial masses or hemorrhage. Meeks/white matter interface is normal. Brainstem appe ars normal. Diffusion-weighted images demonstrate no acute ischemic insult. No chronic ischemic ins ults. Normal intravascular flow voids are present. Skull and face: Calvarium has normal marrow signal. Orbits appear normal. Sinuses: Sinuses and mastoids are clear. IMPRESSION: 1. No acute intracranial process. 2. Moderate atrophy and chronic microvascular ischemic changes. Reviewed by: Paris Pool MD on 01/12/2022 3:26 PM PDT Approved by: Paris Pool MD on 01/12/2022 3:26 PM PDT Station ID: [id number]
--- NOTE | 2022-01-12 15:45 | Discharge Plan ---
Discharge Plan Problem Reviewed?: Yes Disposition: Home, Self Care Condition: Stable Prescriptions: Aspirin EC [Ecotrin] 81 mg PO DAILY #30 tablet Pantoprazole [Protonix] 40 mg PO QDAC #30 tablet Multivitamin W/Minerals [Theragran M] 1 tab PO DAILYWM #30 tablet Diet: Regular Activity Restrictions: Activity as Tolerated Shower Restrictions: No (fall precaution) Instruction Topics: TIA Health Concerns: TIA/double vision Plan of Treatment: Your double vision is resolved, and you have no other focal neurological deficits. Your MRI of brain show no acute process. PT/OT evaluated and treated for you, and you walked at [facility], and recommended out-pt PT/OT for you. You may followup with your PCP to have ECHO study, unfortunately we do not have ECHO service yet. Baby aspirin is prescribed for you per neurologist recommendation. Protonix is prescribed for you per Palliative/hospice care recommendation. I called [facility], updated your medical conditions to your oncologist, you may continue your chemotherapy medication as you choose to do. You may continue to followup with your palliative care. Your right shoulder Xray reveal degenerative changes without acute abnormality. You may followup with out-pt PT/OT and you may resume your home pain medication to control of your pain. Care Goals: Stabilization and improvement of your medical conditions Assessment: Discussed the care plan with you, answered your questions, you understood Additional Instructions or Follow Up instructions: You may follow-up with your PCP in 1 to 2 weeks, and followup with your oncologist as your schedule. Should your symptoms return or worsen, you may present to the ER or call 911 for help Follow-Up Care: Outpatient Rehab - PT, Outpatient Rehab - OT No Smoking: If you smoke, Please STOP! Call for help. Follow-up with: Brenda Morales PA-C [Primary Care Provider] -
[2022-01-12 15:51] VITALS: BP 101/58
[2022-01-12] MEDS ORDERED: CHOLECALCIFEROL 25 MCG TABLET PO SCH (16:00)
[2022-01-12] MEDS ORDERED: PANTOPRAZOLE 40 MG TABLET PO SCH (16:00)
--- NOTE | 2022-01-12 17:32 | XRAY Report ---
PROCEDURE: Shoulder 2 View RT INDICATIONS: severe shoulder pain, injury TECHNIQUE: Views of the right shoulderwere acquired. COMPARISON: None. FINDINGS: Bones: No fractures or dislocations. No suspicious bony lesions. There are degenerative changes o f the right glenohumeral joint with loss of the acromiohumeral interval consistent with rotator cuff disease. The humeral head has subchondral sclerosis and subchondral cystic changes. Soft tissues: No suspicious soft tissue calcifications. A right chest wall port is well-positione d. IMPRESSION: Degenerative changes of the right glenohumeral joint with loss of the acromiohumeral int erval consistent with rotator cuff disease. No acute abnormality Reviewed by: Oscar Ramirez on 01/12/2022 5:31 PM PDT Approved by: Oscar Ramirez on 01/12/2022 5:31 PM PDT Station ID: [id number]
--- NOTE | 2022-01-12 17:47 | DISCHARGE SUMMARY ---
Discharge Summary Admit Date: 01/11/22 Discharge Date: 01/12/22 Discharging Provider: Manuel Haney Primary Care Provider: Brenda Chu Condition at Discharge: Stable Discharge Disposition: 01 Home, Self Care Discharge Facility Name: home - DIAGNOSES Discharge Diagnoses with Status of Each Condition: (1) TIA (transient ischemic attack) double vision was resolved. pt has no other focal neurological deficits. MRI of brain reveal no acute process. (2) Liposarcoma I called [facility], KALPESH Gibson, she stated medication Ibrance is pt's least choice for chemotherapy, pt can either choose to take this meds or he choose to have hospice care. Pt state choose to continue Ibrance to flight for his cancer. pt reported he was told above information by his oncologist before. KALPESH Gibson also stated her nurse will call pt at later this week or early next week to make appointment to see pt. pt already had January 27, 2022 appointment. KALPESH Gibson believed Ibrance medication could unlikely cause pt's temporary double vision. (3) Leukocytosis discussed with [facility], they will see pt soon as above (4) Hypokalemia resolved. (5)right shoulder pain right shoulder Xray reveal degenerative changes without acute abnormality. PT/OT evaluated and treated for pt. pt may followup with out-pt PT/OT and pt may use his home pain medication to control of his pain. pt state he had enough pain medications at his home. (6)hyponatremia chronic. pt walked at [facility] with PT. pt is alert and oriented plus 4. pt may continue followup with his PCP to manage - HPI History of Present Illness: refer from Dr. 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 He receives oncology care at the [facility]. He was last admitted at [facility] in April after 2020 with perforated viscus for which she underwent an ex lap with repair of gastric ulcer done by Dr. Livier Franklin. He presented to the ED today with complaint of double vision. It started around 5 PM while he was reading an email on the computer. The symptoms lasted about 2 hours. By the time of admission his symptoms had completely resolved. He was presented to telestroke neurology who advised complete work-up for TIA/ CVA. At bedside he was resting comfortably. He denied headaches, difficulty speaking, dizziness, any focal weakness. He also denied chest pain, dyspnea, abdominal pain, nausea, vomiting, fever or chills. - ALLERGIES Allergies/Adverse Reactions: Allergies Allergy/AdvReac Type Severity Reaction Status Date / Time No Known Drug Allergies Allergy Verified 10/22/21 16:30 - MEDICATIONS Home Medications: Ambulatory Orders Medication Instructions Recorded Confirmed Ondansetron Odt [Zofran Odt] 4 mg PO Q6H PRN #60 tablet 06/03/21 01/12/22 Amox/Clav 875/125 [Augmentin 1 tablet PO BID 12/22/21 01/12/22 875/125 Tab] Senna [Senokot] 1 tab PO BID MDD 8 12/22/21 01/12/22 oxyCODONE [Roxicodone] 10 mg PO .Q3 PRN MDD 10 mg tabs 12/22/21 01/12/22 polyethylene glycoL 3350 [Miralax] 17 gm PO BID PRN MDD bid 12/22/21 01/12/22 Palbociclib [Ibrance] 125 mg PO .1-21 DAYS 12/27/21 01/12/22 Cholecalciferol [Vitamin D3] 5,000 unit PO DAILY 01/12/22 01/12/22 Ferrous Bis-Glycinate Chelate 29 mg PO DAILY 01/12/22 01/12/22 [Iron Glycinate] Magnesium 250 mg PO Q48H PRN 01/12/22 01/12/22 Prochlorperazine Maleate 10 mg PO BID PRN 01/12/22 01/12/22 Tumeric/Ging/Vale/Oreg/Capryl 1 each PO DAILY 01/12/22 01/12/22 [Candicidal Capsule] Vitamin B Complex 1 each PO DAILY 01/12/22 01/12/22 - PHYSICAL EXAM AT DISCHARGE General Appearance: positive: No acute distress, Alert. negative: Lethargic Eyes Bilateral: positive: Normal inspection, No lid inflammation ENT: positive: ENT inspection nml, No signs of dehydration. negative: Purulent nasal drainage Neck: positive: Nml inspection, Trachea midline. negative: Tracheal deviation Respiratory: positive: Chest non-tender, No respiratory distress. negative: Wheezes Cardiovascular: positive: Regular rate & rhythm. negative: Tachycardia, Bradycardia, Systolic murmur Peripheral Pulses: positive: 2+ Abdomen: positive: Non-tender, Nml bowel sounds, No distention. negative: Tenderness Back: positive: Nml inspection Skin: positive: Color nml, Warm, Dry Extremities: positive: Non-tender, Full ROM, Nml appearance Neurologic/Psychiatric: positive: Oriented x3, Motor nml, Sensation nml. negative: Weakness, Sensory loss, Facial droop, Slurred/abnml speech, Depressed mood/affect - LABS Result Diagrams: 01/12/22 05:29 01/12/22 05:29 - FOLLOW UP Follow Up: Your double vision is resolved, and you have no other focal neurological deficits. Your MRI of brain show no acute process. PT/OT evaluated and treated for you, and you walked at [facility], and recommended out-pt PT/OT for you. You may followup with your PCP to have ECHO study, unfortunately we do not have ECHO service yet. Baby aspirin is prescribed for you per neurologist recommendation. Protonix is prescribed for you per Palliative/hospice care recommendation. I called [facility], updated your medical conditions to your oncologist, you may continue your chemotherapy medication as you choose to do. You may continue to followup with your palliative care. Your right shoulder Xray reveal degenerative changes without acute abnormality. You may followup with out-pt PT/OT and you may resume your home pain medication to control of your pain. You may follow-up with your PCP in 1 to 2 weeks, and followup with your oncologist as your schedule. Should your symptoms return or worsen, you may present to the ER or call 911 for help - TIME SPENT Time Spent in Discharge (Minutes): 30
--- NOTE | 2022-01-12 19:15 | PHARMACY PROGRESS NOTE ---
- Best Possible Medication History Admit Date and Time: 01/11/222054 Processed by: Pharmacy Medication History completed: Yes Patient Interview: Completed Secondary Source(s): Insurance records As the person ultimately responsible for medication therapy, providers are able to order a medication from an existing home medication list in [facility] via the "Reconcile Routine" prior to Confirmation of that medication by applications support analyst. Such practice is discouraged except when the physician, in their clinical judgment, deems that a medical need exists for a medication without regard to previous use.
[2022-01-13] MEDS ORDERED: MULTIVITAMIN W/MINERALS TABLET PO SCH (08:00)
== END 2022-01-12 19:20 | disposition home or self-care (01) ==
LOC: ED 17:10 → MS2 20:55
PROVIDERS: ADMIT Internal Medicine; ATTEND Nurse Practitioner Gerontology
DX: G45.9 Transient cerebral ischemic attack, unspecified (principal); C49.9 Malignant neoplasm of connective and soft tissue, unspecified; C48.0 Malignant neoplasm of retroperitoneum; Z20.822 Contact with and (suspected) exposure to COVID-19; D72.829 Elevated white blood cell count, unspecified; E87.6 Hypokalemia; M19.011 Primary osteoarthritis, right shoulder; E87.1 Hypo-osmolality and hyponatremia; Z79.899 Other long term (current) drug therapy; I10 Essential (primary) hypertension; Z87.891 Personal history of nicotine dependence; Z66 Do not resuscitate
CPT/HCPCS: 36415; 70450; 70496; 70498; 70551; 71045; 73030; 80048; 80053; 80061; 81001; 85025; 85610; 87633; 93005; 97116; 97161; 99283; 99285; A9270; G0378; Q9967; 83721; 87086

== ENCOUNTER 2022-01-17 13:40 | Outpatient (CLI) | payer MEDICARE, OTHER ==
--- NOTE | 2022-01-17 17:22 | CONSULTATION NOTE ---
Palliative Care Follow Up - Referral Referring Provider: Brenda POSEY Time of Visit: [id number] Referral setting: Home Referral Reason: Pain of neoplastic origin/FTT/Retroperitoneal Sarcoma/Anxiety - Information Sources Records reviewed: RN notes reviewed, Previous records reviewed History/Review of Systems obtained from: Patient Exam limitations: No limitations - History of Present Illness Update Brief HPI Update: This is a 71-year-old gentleman with dedifferentiated liposarcoma and retroperitoneal sarcoma, currently on Ibrance. He is getting near the end of his 28-day cycle, continues with fairly high symptom burden. He recently was hospitalized as an obvious patient on admitted 01/11 to 01/12/2022 at [facility], had presented with double vision, no other focal neurologic deficits and MRI of the brain revealed no acute process. Patient though does present with persistent leukocytosis, his WBC was 26.3, neutrophils 13.4, and 12% bands. This is thought again to be related to his small bowel perforation and free air around intestine consistent with Propet perforation of bowel by tumor shown on CT scan 11/14/2021. Patient has not had any fever or chills, though does report since hospitalization has continued to deteriorate particularly functionally. Is having increased weakness, pain has remained fairly stable, but is feeling poorly overall.Patient is hopeful that this is just side effects of the Ibrance, reports that this is going to be his quality of life he prefers not to take it and live out what he has. We discussed could be side effects of Ibrance, also could be progressive disease, or worsening concerns regarding his small bowel perforation. Patient has had a fall 3 days ago, is using a walker for support now, has been using his oxycodone in a fluctuating way, as he is been playing around with it, he does feel better when he takes it, he has been using oxycodone 10 mg 3-4 times a day. He has moved upstairs in his home, remains very concerned about Kelsi and her managing of his decline. Discussed his conversation with the hospice certified medical technician assistant, reports she was "very nice and spent a lot of time". Patient very aware he has most likely weeks, though was hoping he would get a better response that he has. Reports he remains very difficult to have any con versation with Kelsi, and has not taken this on yet and chose to not talk about his dying in front of her. Please see palliative care discussion for further discussion regarding this. Patient continues with poor appetite, is getting adequate fluids, but feels like he is "living less of the life". Past Medical History: Hypertension, migraines, tremors, ulcers, chronic constipation, frequent urination, chronic vision loss, osteoarthritis, fatigue, right shoulder pain, GI bleeding with presentation in 2019. 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 He has lived on [address] with his Kelsi, they hav e home. This is a second marriage they have been for 27 years. He remains concerned about her lack of social support, her family is in [place] and can iden) Living Situation: With spouse/s.o. 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 This is her second marriage have been for 27 years. He remains very concerned about her lack of social support, leaving her financially supported, her family lives in [place]. He had a recent visit from his 2 daughters, who are willing to come back and provide support to Kelsi after his . We did have a long discussion about perhaps having his daughter who is a nurse can be a caregiver. Patient has a couple friends whom he talks with though otherwise is quite isolated himself and appreciates the support from palliative care Medications/Allergies - Medications Home Medications: Ambulatory Orders Medication Instructions Recorded Confirmed Ondansetron Odt [Zofran Odt] 4 mg PO Q6H PRN #60 tablet 06/03/21 01/17/22 Amox/Clav 875/125 [Augmentin 1 tablet PO BID 12/22/21 01/17/22 875/125 Tab] Senna [Senokot] 1 tab PO BID MDD 8 12/22/21 01/17/22 oxyCODONE [Roxicodone] 10 mg PO .Q3 PRN MDD 10 mg tabs 12/22/21 01/17/22 polyethylene glycoL 3350 [Miralax] 17 gm PO BID PRN MDD bid 12/22/21 01/17/22 Palbociclib [Ibrance] 125 mg PO .1-21 DAYS MDD HOLD 12/27/21 01/17/22 Prochlorperazine Maleate 10 mg PO BID PRN 01/12/22 01/17/22 Pantoprazole [Protonix] 40 mg PO DAILY MDD not picked up 01/17/22 01/17/22 yet - Allergies Allergies/Adverse Reactions: Allergies Allergy/AdvReac Type Severity Reaction Status Date / Time No Known Drug Allergies Allergy Verified 10/22/21 16:30 Review of Systems - Constitutional Constitutional: reports: Fatigue (worsening has steadily worsened since hospital discharge), Weakness, Poor appetite, Night sweats, Weight loss. denies: Fever, Chills - Eyes Eyes: reports: Vision loss - Ears, Nose & Throat Ears, Nose & Throat: reports: Dry mouth - Cardiovascular Cardiovascular: reports: Lightheadedness, Exertional dyspnea, Decr. exercise tolerance. denies: Edema - Respiratory Respiratory: reports: SOB with exertion. denies: Cough, SOB at rest - Gastrointestinal Gastrointestinal: reports: Abdominal pain, Constipation (currently controlled with miralax bid; went last night and this am), Nausea (controlled with compazine 10 mg bid; using zofran ODT 4 mg for breakthrough in evenings), Bloating, Poor appetite, Early satiety. denies: Rectal bleeding, Vomiting - Genitourinary Genitourinary: reports: Frequency (goes frequently q 1-2 hours) - Musculoskeletal Musculoskeletal: reports: Back pain, Muscle aches, Stiffness, Limited range of motion (right shoulder worsening had; had xray at hospital with degenerative changes;), Muscle weakness, Assistive devices (had fall 2 days ago without injury; using walker now) - Integumentary Integumentary: reports: Dryness, Other (bruising from hospital) - Neurological Neurological: reports: General weakness, Dizziness, Memory problems (mild), Abnormal gait - Psychiatric Psychiatric: reports: Depression, Anxiety - Endocrine Endocrine: reports: Intolerance to cold - Hematologic/Lymphatic Hematologic/Lymph: reports: Anemia (8.2), Recurrent infections (abdominal on AB; white count remains elevated at 26.3 WBC; neutrophils 13.4 12% bands) - All Other Systems All Other Systems: reports: Reviewed and negative Physical Exam - Vital Signs Pulse Rate: 71 Respiratory Rate: 18 O2 Saturation: 98 Blood Pressure: 98/62 - Physical Exam General Appearance: positive: Alert, Mild distress, Cachetic Eyes Bilateral: positive: Normal inspection, No scleral icterus ENT: positive: Other (eyes sunken) Neck: positive: Trachea midline Cardiovascular: positive: Regular rate & rhythm Respiratory: positive: Diminished throughout. negative: Wheezes, Rales, Rhonchi Abdomen: positive: Nml bowel sounds, Tenderness, Other (abdominal hernia size of double grapefruits; soft and reducible but tender; ;umbilical hernial size of [place] soft and reducible). negative: Guarding Skin: positive: Pallor, Dryness, Bruising Extremities: positive: Pedal edema (trace tp 1+), Other (gait slow and measured; appears significantly weaker; diff getting from sit to stand) Neurologic/Psychiatric: positive: Oriented x3, Weakness, Depressed mood/affect, Flat affect Palliative Care - POLST Patient has POLST: Yes POLST Status: DNR, Selective Treatment Pain: Pain worsening, Location (abdominal), Pattern (fluctuating in severity but constant gnawing), Comment (SEE HPI) Tiredness/Fatigue: Severe (7-10) Drowsiness/Sedation: Mild (1-3) Nausea: Mild (1-3) Anorexia: Severe (7-10) (drinking mostly coffee; smoothies in am; some gatorade), Weight loss Dyspnea: None Depression: Moderate (4-6) Anxiety: Moderate (4-6) Feelings of wellbeing/Perceived Quality of Life: Poor, Worsening Sleep: Sleeps poorly (up freq to void) Constipation: Yes, Opoid induced, Managed Performance Status: Patient continues to decline functionally, feels he would be unable to take a shower at this point, reports his asked him to give him a "bed bath".Is only able to ambulate a few steps, reports his functional status and weakness is discontinued to worsen over this last week. He did have a fall, is currently using the walker. He reports his right arm is worse, his energy level is worsening.Had any recurrence of double vision, nor other signs or symptoms of TIA or stroke. - Palliative Care Discussion: Long discussion regarding patient's current physical and emotional status. Patient reports he is feeling terrible, he reports poor bed mobility, his functional status declining, he is feeling overwhelmed. He feels both emotionally and mentally fatigued. And reports he is "living less of the life". We had a long discussion regarding currently, his thoughts about Ibrance is causing more of the problems, he has 3 days left. We discussed discussed popping now, he is due for a break anyway, can see if his energy level comes back or if he is functioning better, also proposed that other underlying issues certainly could be worsening disease and or worsening abdominal infection. Patient reports he still has some paperwork he is trying to get done, his biggest worry is leaving things in order for Kelsi. We discussed at length Kelsi's denial and difficulty coping with his impending decline. We discussed may be talking to his daughter Riana who is his "nurse daughter" of coming and doing is supporting him for his end-of-life care. I expressed my worry is given his goals of not to in the hospital, that Kelsi may not be able to manage this. He agreed to have a conversation with Riana, we also discussed at length transitioning to hospice and the timing of this, to be able to better provide support for Kelsi and get a plan in place. He will call if he chooses to do this sooner, plan for revisit next Monday. Results - Lab Results Lab results reviewed: Yes Impression and Recommendations - Palliative Care Impression: This is a 71-year-old gentleman with known dedifferentiated liposarcoma/retroperitoneal sarcoma of small bowel perforation with neutrophilic leukocytosis. He continues with high symptom burden of pain, constipation has been resolved, but has had rapid decline in functional status as well as worsening fatigue. Patient to hold Ibrance starting today, and evaluate response. Palliative care providing support for pain and symptom management, psychosocial support and anticipatory guidance. Recommendations/Counseling Done: 1. Pain of neoplastic origin. Patient continues with fluctuating abdominal pain, has been making some interesting choices regarding his use of oxycodone. Patient had done better with oxycodone 15 mg every 3-4 hours, but pulled back secondary to worry some regarding his weakness. Patient actually feels better when he takes it and is more functional. Counseling provided again regarding encouragement to use his oxycodone 10 mg [id number] at least every 4-5 hours, increase that to 2 tabs if needed. Patient does not have any signs or symptoms of sedation, constipation has been controlled, have discussed at length transitioning to fentanyl patch. Patient will continue to monitor and in agreement to be more attentive to his pain. 2. Constipation. Patient is taking MiraLAX 1-2 times a day with regular soft bowel movements, bowels move yesterday and today. Patient does have senna if needed. Patient reports verbal Elder his understanding regarding bowel program. 3. Anorexia. Patient continues with early satiety and intermittent nausea, continues with smoothies, he prefers to be drinking coffee. He does report decreased intake and is quite cachectic. Eating causes increased discomfort. He has been trialed on Remeron before, hesitant to use dexamethasone given known active tumor and history of bleeding. 4. Muscle weakness. Patient now mostly recliner bound, PPS of 40%, gets exhausted unfortunately has had a fall. He is using walker now for balance and fall prevention. Would benefit from support of hospice and bathing support. 5. Retroperitoneal sarcoma. Discussed stopping Ibrance early, has 3 doses left in this 28-day cycle. Patient feeling it is contributing to his decline, discussed can do a time trial off of it and see if he is better. Patient continues with leukocytosis, no fever or chills but is continuing with decline. Suspect more likely attributed to his disease or small bowel perforation. 6 Advanced care planning. Patient does recognize the seriousness's of illness, continue to have conversations about processing this as well his his biggest stressor is the burden on Kelsi. We did discuss possibly asking his daughter to be a caregiver, patient still has some end-of-life "paperwork" to take care of, but is finding himself with little energy to address this. Counseling provided regarding hospice benefit, my recommendation to transition to hospice as soon a s possible. Patient will continue to weigh in on this, wants to do a time trial off of Ibrance first. 65 minutes with greater than 50% of this done in counseling regarding pain and symptom management, advanced care planning, anticipatory guidance, and coordination of care.
== END 2022-01-17 13:41 | disposition home or self-care (01) ==
LOC: PC 13:40
PROVIDERS: ATTEND Nurse Practitioner Adult Health
DX: Z51.5 Encounter for palliative care (principal); G89.3 Neoplasm related pain (acute) (chronic); Z79.899 Other long term (current) drug therapy; R63.0 Anorexia; K59.03 Drug induced constipation; T40.2X5A Adverse effect of other opioids, initial encounter; R68.81 Early satiety; R11.0 Nausea; D72.828 Other elevated white blood cell count; K63.1 Perforation of intestine (nontraumatic); M62.81 Muscle weakness (generalized); C48.0 Malignant neoplasm of retroperitoneum; Z91.81 History of falling; Z74.1 Need for assistance with personal care; Z63.79 Other stressful life events affecting family and household; Z66 Do not resuscitate; Z74.09 Other reduced mobility; Z79.891 Long term (current) use of opiate analgesic; R53.83 Other fatigue; R63.4 Abnormal weight loss; R06.09 Other forms of dyspnea
CPT/HCPCS: 99350

== ENCOUNTER 2022-02-14 20:36 | Outpatient (CLI) | payer MEDICARE, OTHER | END 2022-02-14 20:37 | disposition EMS.NT | LOC: EMS 20:36 | DX: R10.817 Generalized abdominal tenderness (principal) ==